=== PATIENT | female | born 1950 | race Caucasian/White ===

== ENCOUNTER 2018-01-06 03:38 | Inpatient (IN) | payer OTHER ==
[2018-01-06] VITALS (7 sets, daily range): BP systolic 131–165; BP diastolic 72–93
[~2018-01-06] VITALS: Ht 154.9 cm; Wt 37.6 kg
[~2018-01-06 03:38] MED LIST: APAP500 PO; BACTROBAN CREAM30 G1 TOP; BACTROBAN15 GM; CELEBREX50 MG PO; CHOLEST CARE500 MG; COLACE100 MG PO; CYMBALTA20 MG PO; CYMBALTA60 MG PO; DESYREL150 MG PO; DIAZEPAM 5 MG5 MG PO; DIAZEPAM1 EAC1; FLUOXETINE HCL20 M1 PO; HYDROCODON-ACE1 EAC5 PO; HYDROCODON-ACE1 EAC7 PO; IRON325 PO; LISINOPRIL2.5 MG PO; MAGOX 400400 MG PO; METHOTREXATE 22.5 MG PO; MINOCIN50 MG PO; NEURONTIN600 MG PO; NORCO 5-325 TA1 EACH PO; ONDANSETRON HCL4 M2 PO; PHENERGAN12.5 M2 RECTAL; PLAQUENIL200 MG PO; PREMARIN0.3 MG PO; REQUIP 0.25 M0.25 M1 PO; ZOFRAN4 MG PO
[2018-01-06 04:41] LABS: ABSOLUTE NEUTROPHILS 9.2 thou/uL (1.4-8.2); BASOPHILS 0.5 % (0.0-2.0); EOSINOPHILS 0.5 % (0.0-3.0); LYMPHOCYTES 13.9 % (24.0-44.0); MCH 28.7 pg (26.0-34.0); MCHC 32.7 g/dL (28.0-37.0); MONOCYTES 5.9 % (1.0-8.0); PLATELET COUNT 272 thou/uL (150-400); POLYS 79.2 % (36.0-66.0); RBC 3.75 mil/uL (4.20-5.00); RDW 15.3 % (10.5-14.5); WBC 11.6 thou/uL (4.0-11.0)
[2018-01-06 04:42] LABS: HEMOGLOBIN 10.8 gm/dL (12.0-15.0)
[2018-01-06 04:47] LABS: ANION GAP 9 mmol/L (7-16); BUN 36 mg/dL (7-18); CALCIUM 8.5 mg/dL (8.5-10.1); CHLORIDE 103 mmol/L (98-107); CO2 25 mmol/L (21-32); CREATININE 0.9 mg/dL (0.6-1.0); GLUCOSE 138 mg/dL (74-106); POTASSIUM 3.7 mmol/L (3.5-5.1); SODIUM 137 mmol/L (136-145)
[2018-01-06 04:53] LABS: ALBUMIN 3.1 g/dL (3.4-5.0); DIRECT BILIRUBIN < 0.1 mg/dL (<0.1-0.3); LIPASE 192 U/L (73-393); SGOT 21 U/L (15-37); SGPT 17 U/L (30-65); TOTAL BILIRUBIN 0.3 mg/dL (<0.1-1.0)
[2018-01-06 12:03] LABS: HEMATOCRIT 28.9 % (37.0-47.0); HEMOGLOBIN 9.6 gm/dL (12.0-15.0)
[2018-01-06 18:50] LABS: HEMOGLOBIN 9.5 gm/dL (12.0-15.0)
[2018-01-07 00:20] LABS: HEMATOCRIT 24.2 % (37.0-47.0)
[2018-01-07 04:05] VITALS: BP 135/84
[2018-01-07 05:21] LABS: HEMATOCRIT 23.1 % (37.0-47.0); HEMOGLOBIN 7.6 gm/dL (12.0-15.0)
[2018-01-07 06:42] LABS: RBC 2.67 mil/uL (4.20-5.00); WBC 7.1 thou/uL (4.0-11.0)
[2018-01-07 06:43] LABS: MCH 28.5 pg (26.0-34.0); MCHC 32.3 % (28.0-37.0); MCV 88.2 fL (80.0-100.0)
[2018-01-07 06:54] LABS: ALBUMIN 2.6 g/dL (3.4-5.0); CREATININE 0.5 mg/dL (0.6-1.0); TOTAL BILIRUBIN 0.2 mg/dL (<0.1-1.0)
[2018-01-07 07:47] VITALS: BP 154/109
[2018-01-07 12:10] VITALS: BP 155/92
[2018-01-07 14:37] LABS: % SATURATION 8 % (20-39); IRON 24 ug/dL (50-170); TIBC 299 ug/dL (250-450)
[2018-01-07 15:21] LABS: HEMATOCRIT 21.7 % (37.0-47.0); HEMOGLOBIN 7.2 gm/dL (12.0-15.0)
[2018-01-07 16:23] VITALS: BP 114/64
[2018-01-07 19:10] VITALS: BP 126/75
[2018-01-08 05:00] VITALS: BP 132/83
[2018-01-08 06:05] LABS: HEMOGLOBIN 6.9 gm/dL (12.0-15.0); WBC 5.7 thou/uL (4.0-11.0)
[2018-01-08 06:07] LABS: HEMATOCRIT 20.8 % (37.0-47.0); MCH 29.5 pg (26.0-34.0); MCHC 33.3 g/dL (28.0-37.0); MCV 88.5 fL (80.0-100.0); RBC 2.35 mil/uL (4.20-5.00); RDW 14.7 % (10.5-14.5)
[2018-01-08 07:56] VITALS: BP 120/75
[2018-01-08 09:53] VITALS: BP 140/91; BP 152/89
[2018-01-08 11:52] VITALS: BP 152/97
[2018-01-08 15:30] LABS: HEMATOCRIT 25.2 % (37.0-47.0); HEMOGLOBIN 8.6 gm/dL (12.0-15.0)
[2018-01-08 15:55] VITALS: BP 121/82
[2018-01-08 19:30] VITALS: BP 113/56
[2018-01-09 04:45] VITALS: BP 133/88
[2018-01-09 04:51] LABS: HEMATOCRIT 24.6 % (37.0-47.0); HEMOGLOBIN 8.2 gm/dL (12.0-15.0); MCH 29.6 pg (26.0-34.0); MCHC 33.3 g/dL (28.0-37.0); MCV 88.8 fL (80.0-100.0); RBC 2.77 mil/uL (4.20-5.00); WBC 5.9 thou/uL (4.0-11.0)
[2018-01-09 07:13] VITALS: BP 149/98
[2018-01-09 11:52] VITALS: BP 160/101
[2018-01-09] MEDS ORDERED: AMLODIPINE BESY10 MG PO (13:05)
[2018-01-09 15:50] VITALS: BP 158/99
[2018-01-09 16:48] VITALS: BP 158/99
== END 2018-01-09 18:52 | disposition home or self-care (01) | DRG 377 ==
LOC: ER 03:38 → EROBS 06:57 → 3W 06:57
PROVIDERS: Emergency Medicine; Hospitalist
PROC: 3E0G8GC Introduction of Other Therapeutic Substance into Upper GI, Via Natural or Artificial Opening Endoscopic (ICD-10-PCS; principal; 2018-01-06)
PROC: 0DB98ZX Excision of Duodenum, Via Natural or Artificial Opening Endoscopic, Diagnostic (ICD-10-PCS; principal; 2018-01-06)
PROC: 0DB68ZX Excision of Stomach, Via Natural or Artificial Opening Endoscopic, Diagnostic (ICD-10-PCS; principal; 2018-01-06)
PROC: 0DC68ZZ Extirpation of Matter from Stomach, Via Natural or Artificial Opening Endoscopic (ICD-10-PCS; principal; 2018-01-06)
DX: K25.4 Chronic or unspecified gastric ulcer with hemorrhage (principal); E43 Unspecified severe protein-calorie malnutrition; D62 Acute posthemorrhagic anemia; Z68.1 Body mass index [BMI] 19.9 or less, adult; K52.9 Noninfective gastroenteritis and colitis, unspecified; K44.9 Diaphragmatic hernia without obstruction or gangrene; M79.7 Fibromyalgia; M06.9 Rheumatoid arthritis, unspecified; M32.9 Systemic lupus erythematosus, unspecified; I72.8 Aneurysm of other specified arteries; I70.1 Atherosclerosis of renal artery; M48.061 Spinal stenosis, lumbar region without neurogenic claudication; F32.9 Major depressive disorder, single episode, unspecified; F41.9 Anxiety disorder, unspecified; F17.210 Nicotine dependence, cigarettes, uncomplicated; Z90.710 Acquired absence of both cervix and uterus; Z79.899 Other long term (current) drug therapy; Z82.49 Family history of ischemic heart disease and other diseases of the circulatory system
CPT/HCPCS: 10779; 27001; 62110; 62900; 70005

== ENCOUNTER 2018-01-15 18:22 | Inpatient (IN) | payer OTHER ==
[~2018-01-15] VITALS: Ht 157.5 cm; Wt 40.9 kg
--- NOTE | ~2018-01-15 | EKG ---
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 : 1950 Requested By: Severo Sandhu Order Number: [id number] MD: Neil Winkler Measurements Intervals [place] Rate: 93 P: 76 WY: 125 QRS: 34 QRSD: 85 T: 49 QT: 387 QTc: 482 Interpretive Statements Sinus rhythm Right atrial enlargement Compared to ECG 01/04/2018 21:01:27 Atrial abnormality now present Electronically Signed On 01-17-2018 7:56:17 CDT by Neil Winkler [email or web address] <ELECTRONICALLY SIGNED> By: Neil Winkler MD, [facility] 01/17/18 0756 36 36 Neil Winkler MD, [facility] /EPI
[~2018-01-15 18:22] MED LIST changes: +AMLODIPINE BESY10 MG PO
[2018-01-15 18:30] VITALS: BP 177/109
[2018-01-15 18:56] LABS: ABSOLUTE NEUTROPHILS 6.5 thou/uL (1.4-8.2); EOSINOPHILS 0.6 % (0.0-3.0); HEMOGLOBIN 11.9 gm/dL (12.0-15.0); LYMPHOCYTES 15.3 % (24.0-44.0); MCH 29.1 pg (26.0-34.0); MCHC 32.9 g/dL (28.0-37.0); MCV 88.3 fL (80.0-100.0); MONOCYTES 7.6 % (1.0-8.0); PLATELET COUNT 398 thou/uL (150-400); POLYS 75.5 % (36.0-66.0); RBC 4.08 mil/uL (4.20-5.00); RDW 15.2 % (10.5-14.5); WBC 8.5 thou/uL (4.0-11.0)
[2018-01-15 19:05] LABS: ANION GAP 14 mmol/L (7-16); BUN 9 mg/dL (7-18); CALCIUM 10.2 mg/dL (8.5-10.1); CHLORIDE 101 mmol/L (98-107); CO2 25 mmol/L (21-32); CREATININE 0.8 mg/dL (0.6-1.0); GLUCOSE 126 mg/dL (74-106); POTASSIUM 3.6 mmol/L (3.5-5.1); SODIUM 140 mmol/L (136-145)
[2018-01-15 19:13] LABS: TROPONIN-I < 0.04 ng/mL (<0.06)
[2018-01-15 19:15] LABS: APTT 23.4 Seconds (24.5-32.8); PROTIME 10.1 Seconds (9.3-11.4)
[2018-01-15 19:30] LABS: ALBUMIN 3.5 g/dL (3.4-5.0); DIRECT BILIRUBIN < 0.1 mg/dL (<0.1-0.3); LIPASE 100 U/L (73-393); SGOT 33 U/L (15-37); SGPT 26 U/L (30-65); TOTAL BILIRUBIN 0.2 mg/dL (<0.1-1.0); TOTAL PROTEIN 7.5 g/dL (6.4-8.2)
[2018-01-15 21:17] VITALS: BP 188/99
[2018-01-15 21:30] VITALS: BP 169/106
[2018-01-16] VITALS: BP 151/87
[2018-01-16 01:13] LABS: HEMATOCRIT 29.6 % (37.0-47.0)
[2018-01-16 04:43] VITALS: BP 128/79
[2018-01-16 06:54] LABS: HEMATOCRIT 30.4 % (37.0-47.0); HEMOGLOBIN 9.9 gm/dL (12.0-15.0)
[2018-01-16 08:00] VITALS: BP 155/92
[2018-01-16] MEDS ORDERED: CARAFATE 1 GM TA1 G1 PO (10:20)
[2018-01-16] MEDS ORDERED: PROTONIX40 M1 PO (10:21)
[2018-01-16 12:00] VITALS: BP 159/100
[2018-01-16 13:33] LABS: HEMOGLOBIN 8.9 gm/dL (12.0-15.0)
[2018-01-16 16:00] VITALS: BP 128/77
[2018-01-16 18:36] LABS: HEMATOCRIT 25.4 % (37.0-47.0); HEMOGLOBIN 8.4 gm/dL (12.0-15.0)
[2018-01-16 19:16] VITALS: BP 109/67
[2018-01-17 00:41] LABS: HEMATOCRIT 24.7 % (37.0-47.0)
[2018-01-17 04:55] VITALS: BP 145/93
[2018-01-17 09:17] VITALS: BP 147/83
[2018-01-17 12:00] VITALS: BP 132/90
[2018-01-17 17:32] VITALS: BP 130/89
[2018-01-17 19:45] VITALS: BP 120/81
[2018-01-18 07:16] LABS: ABSOLUTE NEUTROPHILS 2.7 thou/uL (1.4-8.2); BASOPHILS 1.1 % (0.0-2.0); EOSINOPHILS 2.9 % (0.0-3.0); HEMATOCRIT 26.4 % (37.0-47.0); HEMOGLOBIN 8.6 gm/dL (12.0-15.0); LYMPHOCYTES 37.9 % (24.0-44.0); MCH 29.2 pg (26.0-34.0); MCHC 32.7 g/dL (28.0-37.0); MCV 89.4 fL (80.0-100.0); MONOCYTES 7.9 % (1.0-8.0); POLYS 50.2 % (36.0-66.0); RBC 2.95 mil/uL (4.20-5.00); RDW 15.4 % (10.5-14.5); WBC 5.3 thou/uL (4.0-11.0)
[2018-01-18 07:20] LABS: PLATELET COUNT 288 thou/uL (150-400)
[2018-01-18 07:26] LABS: CREATININE 0.5 mg/dL (0.6-1.0)
[2018-01-18 07:30] VITALS: BP 131/90
[2018-01-18] MEDS ORDERED: CARAFATE 1 GM TA1 G1 PO (10:16)
[2018-01-18] MEDS ORDERED: PROTONIX40 M1 PO (10:16)
[2018-01-18 13:12] VITALS: BP 131/90
== END 2018-01-18 13:40 | disposition home or self-care (01) | DRG 377 ==
LOC: ER 18:22 → EROBS 20:09 → 3W 20:09 → SICU 01-17 18:18 → ENTRNSPT 01-18 13:28 → EDTRNSPTSTS 01-18 13:29 → SICU 01-18 13:40
PROVIDERS: Emergency Medicine; Hospitalist; Nurse Practitioner Acute Care; Specialist
DX: K92.2 Gastrointestinal hemorrhage, unspecified (principal); E43 Unspecified severe protein-calorie malnutrition; M79.7 Fibromyalgia; M06.9 Rheumatoid arthritis, unspecified; M32.9 Systemic lupus erythematosus, unspecified; I72.8 Aneurysm of other specified arteries; D64.9 Anemia, unspecified; F32.9 Major depressive disorder, single episode, unspecified; F41.9 Anxiety disorder, unspecified; F17.210 Nicotine dependence, cigarettes, uncomplicated; Z87.19 Personal history of other diseases of the digestive system; Z90.710 Acquired absence of both cervix and uterus; Z79.899 Other long term (current) drug therapy; Z82.49 Family history of ischemic heart disease and other diseases of the circulatory system
CPT/HCPCS: 10879; 15002

== ENCOUNTER 2020-09-23 16:16 | Inpatient (IN) | payer OTHER ==
[~2020-09-23] VITALS: Ht 157.5 cm; Wt 47.0 kg
[~2020-09-23 16:16] MED LIST changes: +AZITHROMYCIN 2250 MG PO; +CARAFATE 1 GM TA1 G1 PO; +LISINOPRIL-HCT1 EACH PO; +PROTONIX40 M1 PO
[2020-09-23 16:17] VITALS: BP 122/84
[2020-09-23 17:23] LABS: ABSOLUTE NEUTROPHILS 11.6 thou/uL (1.4-8.2); BASOPHILS 0.4 % (0.0-2.0); EOSINOPHILS 1.2 % (0.0-3.0); HEMATOCRIT 44.8 % (37.0-47.0); HEMOGLOBIN 14.3 gm/dL (12.0-15.0); LYMPHOCYTES 15.8 % (24.0-44.0); MCH 28.5 pg (26.0-34.0); MCHC 31.9 g/dL (28.0-37.0); MCV 89.4 fL (80.0-100.0); MONOCYTES 2.8 % (1.0-8.0); PLATELET COUNT 289 thou/uL (150-400); POLYS 79.8 % (36.0-66.0); RBC 5.02 mil/uL (4.20-5.00); RDW 18.1 % (10.5-14.5); WBC 14.6 thou/uL (4.0-11.0)
--- NOTE | 2020-09-23 17:25 | NUR ---
SISTER- JULISA GILLIS: [phone]. WOULD LIKE AN UPDATE WHEN RESULTS ARE BACK,
[2020-09-23 17:38] LABS: CALCIUM 9.8 mg/dL (8.5-10.1); CREATININE 0.9 mg/dL (0.6-1.0); POTASSIUM 3.2 mmol/L (3.5-5.1)
[2020-09-23 17:53] LABS: APTT 32.2 Seconds (24.5-32.8); INR 1.1
[2020-09-23 17:55] LABS: TOTAL BILIRUBIN 0.3 mg/dL (0.2-1.0); TOTAL PROTEIN 5.3 g/dL (6.4-8.2)
[2020-09-23 21:38] VITALS: BP 113/82
--- NOTE | 2020-09-23 21:56 | NUR ---
Called to give report but phone ringing for over 5 minutes with no answer
[2020-09-23 22:16] VITALS: BP 136/85
[2020-09-23 22:49] VITALS: BP 113/79
[2020-09-24 01:41] LABS: HEMATOCRIT 43.7 % (37.0-47.0); HEMOGLOBIN 13.9 gm/dL (12.0-15.0); MCH 28.5 pg (26.0-34.0); MCHC 31.7 g/dL (28.0-37.0); MCV 89.9 fL (80.0-100.0); RBC 4.86 mil/uL (4.20-5.00); RDW 18.3 % (10.5-14.5)
[2020-09-24 01:48] LABS: WBC 30.9 thou/uL (4.0-11.0)
[2020-09-24 02:05] LABS: CALCIUM 9.3 mg/dL (8.5-10.1); CREATININE 1.1 mg/dL (0.6-1.0); POTASSIUM 3.6 mmol/L (3.5-5.1)
[2020-09-24 04:45] VITALS: BP 147/94
--- NOTE | 2020-09-24 07:35 | EKG ---
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 : 1950 Requested By: Neto Groves Order Number: [id number] MD: Hayden Ballard Measurements Intervals [place] Rate: 93 P: 34 GA: 150 QRS: -34 QRSD: 96 T: 57 QT: 425 QTc: 529 Interpretive Statements Sinus rhythm Inferior infarct, old Prolonged QT interval Compared to ECG 01/15/2018 18:37:26 Myocardial infarct finding now present Prolonged QT interval now present Atrial abnormality no longer present Electronically Signed On 09-24-2020 7:35:45 FOOD AND BEVERAGE ATTENDANT by Hayden Ballard [email or web address] <ELECTRONICALLY SIGNED> By: Hayden Ballard MD, [facility] 09/24/20 0735 10 10 Hayden Ballard MD, FAC /EPI
[2020-09-24 07:45] VITALS: BP 141/79
[2020-09-24 12:00] VITALS: BP 141/83
--- NOTE | 2020-09-24 12:19 | NUR ---
Case opened to follow for dc planning needs. Ambulance Attendant visited with the pt at bedside. Pt admitted with pancreatitis/colitis from home. Therapy evals pending. Pt reports that she lives with her sister Funmi in a home in [place]. Both her son and Funmi's son lives there with them. She reports that she is indep with gait and adl's using her rwalker. Her sister helps with meal prep and they have a cleaning lady coming in weekly. Her pcp is Dr. Arnold Killian in [place]; she has been with him from many years. She is disabled with mutliple medical issues including lupus,fibromyaligia, celiac disease, RA, etc... She smokes 1-2 packs a day. She requested her face sheet be updated with her sisters info vs her ex Andrez who has health issues himself. Cm role introduced. Pt denies any dc needs at this time. Will follow along for possible HH at dc. Pt was oriented x4 but a little drowsy this am.
[2020-09-24 15:30] VITALS: BP 161/87
--- NOTE | 2020-09-24 18:17 | NUR ---
ASSESSMENT CHARTED - MEDS PER MAR - PT NPO THIS AM - BIANCA DIET AND FLUIDS SINCE LUNCH WITH NO CO'S OF NASUEA. UP TO THE BSC - PT WITH DIARRHEA MIXED WITH URINE - PARK IN COLOUR. PT WITH CO'S OF PAIN IN L QUAD GIVEN HYDROCODONE WITH MOD- GOOD RELIEF. IV FLUIDS CONTINUE ORDERED. SEEN BY GI DOCTOR TODAY. PT APPEARS TO BE RESTING COMFORTABLY AT THE PRESENT TIME.
[2020-09-24 20:45] VITALS: BP 168/94
[2020-09-25] VITALS: BP 163/92
[2020-09-25 04:45] VITALS: BP 174/95
[2020-09-25 04:59] LABS: CALCIUM 8.6 mg/dL (8.5-10.1); CREATININE 0.7 mg/dL (0.6-1.0); POTASSIUM 3.4 mmol/L (3.5-5.1)
[2020-09-25 05:20] LABS: HEMATOCRIT 33.7 % (37.0-47.0); MCH 28.4 pg (26.0-34.0); MCHC 31.9 g/dL (28.0-37.0); MCV 89.1 fL (80.0-100.0); RBC 3.78 mil/uL (4.20-5.00); RDW 18.4 % (10.5-14.5)
[2020-09-25 05:26] LABS: HEMOGLOBIN 10.7 gm/dL (12.0-15.0); WBC 15.3 thou/uL (4.0-11.0)
[2020-09-25 07:45] VITALS: BP 164/92
--- NOTE | 2020-09-25 10:39 | 2DMMODE ---
[facility] [place] [address] 2 D/M-MODE ECHOCARDIOGRAM Name: SUNNI CERDA LIZZETTE Room #: 216-P ADM IN M.R.#: [id number] Admission: 09/23/20 Attend Phys: Dontae Manning MD Discharge: Date of : 50 Report #: [id number] THIS REPORT FOR: cc: José Wray Steve T. DO Lammoglia, Francisco J. MD ~ APPROVED REPORT Study performed: 09/25/2020 09:32:24 EXAM: Comprehensive 2D, Doppler, and color-flow Echocardiogram Patient Location: Bedside Room #: 216 Status: routine BSA: 1.37 HR: 100 bpm BP: 164/92 mmHg Rhythm: NSR/Irregular Other Information Study Quality: Good Indications Bacteremia, rule out vegetation. Hx: Cardiomyopathy (30-35% 2017). 2D Dimensions RVDd: 27.91 mm IVSd: 7.68 (7-11mm) LVOT Diam: 20.33 (18-24mm) LVDd: 43.67 mm PWd: 8.47 (7-11mm) Ascending Ao: 34.28 (22-36mm) LVDs: 30.46 (25-40mm) Aortic Root: 36.23 mm Volumes Left Atrial Volume (Systole) Single Plane 4CH: 28.82 mL Single Plane 2CH: 31.45 mL LA ESV Index: 26.00 mL/m2 Aortic Valve AoV Peak Yair.: 1.45 m/s AO Peak Gr.: 8.35 mmHg LVOT Max P.36 mmHg LVOT Max V: 1.04 m/s MACEY Vmax: 2.34 cm2 [facility] [address] [place] [address] 2 D/M-MODE ECHOCARDIOGRAM Name: SUNNI CERDA LIZZETTE Room #: 216-P [facility] IN [facility].#: [id number] Admission: 09/23/20 Attend Phys: Huyen Phipps Discharge: Date of : 50 Report #: [id number] Mitral Valve E/A Ratio: 0.7 MV Decel. Time: 187.22 ms MV E Max Yair.: 0.75 m/s MV A Yair.: 1.01 m/s MV PHT: 54.30 ms IVRT: 78.43 ms Pulmonary Valve PV Peak Yair.: 0.82 m/s PV Peak Gr.: 2.68 mmHg Pulmonary Vein P Vein S: 0.85 m/s P Vein D: 0.39 m/s P Vein S/D Ratio: 2.18 Tricuspid Valve TR Peak Yair.: 2.50 m/s RAP Estimate: 5.00 mmHg TR Peak Gr.: 25.10 mmHg PA Pressure: 30.00 mmHg Left Ventricle The left ventricle is normal size. There is normal LV segmental wall motion. No significant hypertrophy Left ventricular systolic function is normal. LVEF is 55%. Mild diastolic dysfunction is present (impaired relaxation pattern). Right Ventricle The right ventricle is normal size. The right ventricular systolic function is normal. Atria The left atrium size is normal. The right atrium size is normal. Aortic Valve Aortic valve leaflets are mildly thickened and calcified. Trace aortic regurgitation. There is no aortic valvular stenosis. Mitral Valve The mitral valve is normal in structure. Trace to mild mitral regurgitation. Tricuspid Valve The tricuspid valve is normal in structure. Trace to mild tricuspid regurgitation. Estimated PAP is 30mmHg. [facility] [address] [place] [address] 2 D/M-MODE ECHOCARDIOGRAM Name: SUNNI CERDA [facility] Room #: 216-P ADM IN M.R.#: [id number] Admission: 09/23/20 Attend Phys: Huyen Phipps Discharge: Date of : 50 Report #: [id number] Pulmonic Valve The pulmonary valve is normal in structure. There is no pulmonic valvular regurgitation. Great Vessels Aortic root is borderline dilated. The ascending aorta is normal in size. IVC is normal in size and collapses >50% with inspiration. Pericardium There is no pericardial effusion. <Conclusion> The left ventricle is normal size. Left ventricular systolic function is normal. There is normal LV segmental wall motion. LVEF is 55%. Aortic valve leaflets are mildly thickened and calcified. Trace aortic regurgitation. There is no aortic valvular stenosis. The mitral valve is normal in structure. Trace to mild mitral regurgitation. The tricuspid valve is normal in structure. Trace to mild tricuspid regurgitation. Estimated PAP is 30mmHg. The pulmonary valve is normal in structure. There is no pericardial effusion. <ELECTRONICALLY SIGNED> By: Yosef Hall MD 09/25/20 1039 1039 1039 Yosef Hall MD /INF
[2020-09-25 11:01] VITALS: BP 162/94
[2020-09-25 15:19] VITALS: BP 164/87
[2020-09-25 19:22] VITALS: BP 142/89
--- NOTE | 2020-09-25 20:09 | NUR ---
ASSESSMENT CHARTED - MEDS PER NOV - PT GIVEN PAIN MEDS DOCUMENTED WITH MOD EFFECT ON PAIN. BIANCA DIET AND FLUIDS. NO CO'S OF NAUSEA. PT UP TO THE BEDSIDE COMMODE . IV FLUIDS CONTINUE ORDERED. SEEN BY INFECTIOUS DISEASE TODAY ORDERED. PT SLEEPING ALOT OF THE SHIFT. NO CO'S AT THE PRESENT TIME. APPEARS TO BE RESTING COMFORTABLY.
--- NOTE | 2020-09-26 01:37 | HC ---
[facility] [place] [address] CONSULTATION Name: SUNNI CERDA Room #: 216-P ADM IN M.R.#: [id number] Admission: 09/23/20 Attend Phys: Dontae Manning MD Discharge: Date of : 50 Report #: [id number] THIS REPORT FOR: cc: José Wray Steve T. DO Geha, Daniel J. MD ~ DATE OF SERVICE: 09/25/2020 INFECTIOUS DISEASE CONSULTATION REASON FOR CONSULTATION: I was asked to evaluate concerning bacteremia. HISTORY OF PRESENT ILLNESS: This is a 69-year-old with underlying history of rheumatoid arthritis, systemic lupus erythematosus, underlying vascular disease, who presents on 09/23/2020 with a syncopal episode while on the toilet. For about a week before this, she had noticed malaise, anorexia, 10-pound weight loss with progressive abdominal pain. She has had some loose stools. While straining on the toilet, the patient had a syncopal episode. When she presented to the Emergency Room, she is having abdominal cramping pain along with nausea, vomiting and loose stools. CT scan imaging showed evidence of underlying vascular disease to the intestinal tract along with elevated lipase. Lactate was elevated at 5. This is all normalized. She has had leukocytosis of 14,000, went up to 30,000 and now is at 15,000. No fever, chills or sweats. Her abdominal pain has persisted. She has been able to eat. Reports loose stools. No blood in her stool. No history of pancreatitis. She has had a gastric ulcer in the past. 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 REVIEW OF SYSTEMS: A 14-point review of system was negative other than what has been described above. No previous history of cardiomyopathy or dysrhythmias. ALLERGIES: None known. MEDICATIONS: As noted on her MAR, which were reviewed. She was on minocycline and had been on azithromycin. PAST MEDICAL HISTORY: Restless leg syndrome, gastroesophageal reflux, anemia, fibromyalgia, hypertension, tobacco use, bilateral carpal tunnel repair, hysterectomy, small-bowel obstruction, systemic lupus erythematosus, rheumatoid arthritis, gastric ulcer, celiac disease, right renal artery stenosis, anxiety, depression, cataract surgery, celiac artery aneurysm, spinal stenosis. FAMILY HISTORY: Negative for tuberculosis. SOCIAL HISTORY: She is a smoker of cigarettes. No significant alcohol intake. [facility] [address] [place] [address] CONSULTATION Name: SUNNI CERDA [facility] Room #: 216-P [facility] IN ..#: [id number] Admission: 09/23/20 Attend Phys: Dontae Manning MD Discharge: Date of : 50 Report #: [id number] PHYSICAL EXAMINATION: VITAL SIGNS: She is afebrile and hemodynamically stable. GENERAL: She is alert and cooperative and pleasant. She was thin. SKIN: With multiple ecchymosis to her extremities. No palpable adenopathy. EYES: Without scleral icterus. MOUTH: Without mucositis. NECK: Supple. LUNGS: Clear. HEART: Regular, without murmur, gallop or rub. ABDOMEN: Soft, was tender mostly in the epigastric region. No appreciable mass or hepatosplenomegaly. No CVA tenderness. GENITORECTAL: Not performed. EXTREMITIES: Without clubbing, cyanosis or edema. NEUROLOGIC: Cranial nerves intact. Strength in upper and lower extremities within normal limits. Mood without anxiety or depression. LABORATORY STUDIES: Reviewed. CT scan of the abdomen and pelvis reviewed. MICROBIOLOGY: Reviewed. IMPRESSION: A 69-year-old with underlying history of rheumatoid arthritis and abdominal vascular disease, presents with abdominal pain, weight loss, loose stools and a syncopal episode. On presentation, she had a leukocytosis along with lactic acidosis. I would be concerned about underlying ischemia. However, there is no bowel wall thickening on CAT scan. She has mild pancreatitis changes with lipase of 800, which has now normalized. She has lactic acidosis, which has improved. Syncope, likely related to vasovagal syndrome. Gram-positive bacteremia with Staphylococcus epidermidis and Staphylococcus hominis identified would be most consistent with contamination since it is one of two blood cultures and multiple organisms identified. RECOMMENDATIONS: We will check stool for C. difficile by PCR and stool culture. Continue current antibiotic coverage, pending final culture results. If pain persists, would repeat upper endoscopy to assess for ischemia. Serial laboratory studies and follow leukocytosis. Await GI service recommendations. <ELECTRONICALLY SIGNED> By: Kaden Lagunas MD 09/26/20 0137 [id number] 2330 Kaden Lagunas MD /nt
[2020-09-26 04:26] VITALS: BP 157/97
--- NOTE | 2020-09-26 04:30 | NUR ---
ASSESSED PT. C/O PAIN IV INTACT WITH FLUIDS INFUSING. HYDROCODONE GIVEN FOR PAIN. PT UP TO BSC WITH SBA. NO FURTHER SIGNS OF DISCOMFORT WILL CONT TO MONITOR.
[2020-09-26 04:56] LABS: HEMATOCRIT 31.1 % (37.0-47.0); HEMOGLOBIN 10.2 gm/dL (12.0-15.0); MCH 29.1 pg (26.0-34.0); MCHC 32.7 g/dL (28.0-37.0); MCV 89.1 fL (80.0-100.0); RBC 3.49 mil/uL (4.20-5.00); RDW 17.6 % (10.5-14.5); WBC 10.3 thou/uL (4.0-11.0)
[2020-09-26 05:05] LABS: CALCIUM 8.7 mg/dL (8.5-10.1); CREATININE 0.6 mg/dL (0.6-1.0); MAGNESIUM 1.5 mg/dL (1.8-2.4)
[2020-09-26 05:14] LABS: POTASSIUM 2.9 mmol/L (3.5-5.1)
[2020-09-26 07:41] VITALS: BP 166/104
[2020-09-26 11:06] VITALS: BP 139/89
[2020-09-26 13:31] LABS: POTASSIUM 3.7 mmol/L (3.5-5.1)
[2020-09-26 14:33] LABS: CALCIUM 8.7 mg/dL (8.5-10.1); CREATININE 0.6 mg/dL (0.6-1.0); MAGNESIUM 2.7 mg/dL (1.8-2.4); PHOSPHORUS 1.2 mg/dL (2.5-4.9)
[2020-09-26 15:25] VITALS: BP 170/102
--- NOTE | 2020-09-26 15:37 | NUR ---
PT RESTING IN BED FOR MAJORITY OF SHIFT. WORKED WITH PT TODAY. MAGNESIUM/POTASSIUM REPLACED PER [facility] PROTOCAL. STOOL SAMPLE SENT TO LAB. MULTIPLE SMALL BOWEL MOVEMENTS TODAY. PT AFEBRILE, ADEQUATE UOP, VERY LITTLE APPETIITE. PT HAS BEEN UPDATED AND EDUCATED ON PT CONDITION AND POC. PT PROGRESSING TOWARDS POC.
[2020-09-26 20:17] VITALS: BP 119/77
[2020-09-27 03:05] VITALS: BP 139/87
--- NOTE | 2020-09-27 04:05 | NUR ---
Assumed pt care at 1900. Pt is alert and oriented. No sign of distress noted in pt. Fall precaution in place. Assessment completed and documented. Verbalizes abdominal pain. Pain med administered to pt. Scheduled meds administered to pt. Tolerated PO intake. No acute events overnight. Continue to monitor pt. No further needs at this time.
[2020-09-27 05:55] LABS: HEMATOCRIT 29.3 % (37.0-47.0); HEMOGLOBIN 9.5 gm/dL (12.0-15.0); MCH 29.2 pg (26.0-34.0); MCHC 32.5 g/dL (28.0-37.0); RBC 3.26 mil/uL (4.20-5.00)
[2020-09-27 06:09] LABS: CALCIUM 8.7 mg/dL (8.5-10.1); CREATININE 0.5 mg/dL (0.6-1.0); MAGNESIUM 1.7 mg/dL (1.8-2.4); POTASSIUM 4.4 mmol/L (3.5-5.1)
[2020-09-27 08:12] VITALS: BP 146/95
--- NOTE | 2020-09-27 12:30 | NUR ---
pT. AMBULATED TO RESTROOM FOR MULTIPLE BLOWEL MOVEMENTS THIS AM. PENDING C-DIFF RESULTS TO BE POSTED. AFEBRILE. MAGNESIUM REPLACED THIS AM PER PROTOCOL. NORMAL URINE OUTPUT THIS AM. HYDROCODONE GIVEN AT NOON TODAY FOR ABDOMEN PAIN PRIOR.
[2020-09-27 13:00] VITALS: BP 160/90
--- NOTE | 2020-09-27 17:19 | NUR ---
Visited with pt at bedside. She did well with therapy today and too high level for 5N acute rehab. She is hoping to go directly home at dc and is feeling better, hoping her cdiff is negative. She has good support at home and does not feel she needs HH f/u. Will reassess early next week for possible hh needs at dc.
--- NOTE | 2020-09-27 17:33 | NUR ---
PAGED DR. MARSH'S OFFICE TO LET THEM KNOW THE CDIFF SAMPLE WAS A. COLLECTED. B. NEVER RUN ACCORDING TO MICROBIOLOGY STAFF PER JELANI IN INFECTIOUS DISEASE OFFICE? WILL TRY TO OBTAIN ANOTHER SAMPLE SOON SHE IS ABLE TO PROVIDE ONE.
--- NOTE | 2020-09-27 18:59 | NUR ---
STOOL SPECIMEN SENT FOR CDIFF PROCESSING HAS BEEN HAVING CHRONIC DIARRHEA PAST 24 HOURS, NOT ON LAXATIVES. MAXIMO ORDERED NEW TEST FOR SUCH POST MY CALL TO HIM EARLIER IN THE DAY. LOW FEVER CONTINUES.
[2020-09-27 20:12] VITALS: BP 149/88
[2020-09-28 03:49] LABS: HEMATOCRIT 29.6 % (37.0-47.0); HEMOGLOBIN 9.8 gm/dL (12.0-15.0); MCH 29.4 pg (26.0-34.0); MCHC 33.1 g/dL (28.0-37.0); MCV 88.8 fL (80.0-100.0); RBC 3.33 mil/uL (4.20-5.00); RDW 18.1 % (10.5-14.5); WBC 8.3 thou/uL (4.0-11.0)
[2020-09-28 03:59] LABS: CALCIUM 8.5 mg/dL (8.5-10.1); CREATININE 0.5 mg/dL (0.6-1.0); MAGNESIUM 1.7 mg/dL (1.8-2.4); POTASSIUM 3.6 mmol/L (3.5-5.1)
[2020-09-28 04:31] VITALS: BP 15/85; BP 150/85
--- NOTE | 2020-09-28 05:08 | NUR ---
SLEPT PART OF SHIFT. ST WITH ACTIVITY TO BATHROOM 120'S AT TIMES. PAIN MEDICATION FOR CHRONIC ABDOMANAL PAIN NEEDED. WORKING ON GOALS AND PLAN OF CARE FOR NOC. PROGRESSING SLOWLY TOWARDS DISCHARGE GOALS. CONTINUE TO ASSES CLOSELY.
[2020-09-28 09:01] VITALS: BP 143/91
[2020-09-28 11:50] VITALS: BP 156/90
--- NOTE | 2020-09-28 11:56 | NUR ---
FAXED REFERRAL TO [facility]. GAYLA/AAMIR WILL REVIEW AND GET BACK TO LESTER/AGRICULTURAL EQUIPMENT TEST ENGINEER IF HOME HEALTH NEEDED AT DISCHARGE. [facility] P [phone]; FAX [phone]; GAYLA/AAMIR [phone]
--- NOTE | 2020-09-28 15:47 | NUR ---
PT RESTING IN BED, STANDBY ASSIST TO BATHROOM. ONLY HAD 1 BOUT OF DIARRHEA TODAY, DR COLON IN WITH PT, PT ON ABX, PLAN IS TO DC WITH WHEN PT IS READY.
[2020-09-28 15:59] VITALS: BP 123/67
[2020-09-28 19:56] VITALS: BP 151/84
[2020-09-29 02:43] LABS: HEMATOCRIT 25.8 % (37.0-47.0); HEMOGLOBIN 8.5 gm/dL (12.0-15.0); MCH 28.9 pg (26.0-34.0); MCHC 32.8 g/dL (28.0-37.0); MCV 88.1 fL (80.0-100.0); RBC 2.93 mil/uL (4.20-5.00); RDW 18.1 % (10.5-14.5); WBC 6.9 thou/uL (4.0-11.0)
[2020-09-29 02:58] LABS: CALCIUM 7.7 mg/dL (8.5-10.1); CREATININE 0.6 mg/dL (0.6-1.0); MAGNESIUM 1.4 mg/dL (1.8-2.4); POTASSIUM 3.1 mmol/L (3.5-5.1)
[2020-09-29 03:56] VITALS: BP 149/84
--- NOTE | 2020-09-29 04:24 | NUR ---
SLEPT PART OF SHIFT. UP TO BATHROOM WITH STEADY GATE. PROGRESSING SLOWLY TOWARDS DISCHARGE GOALS. AWAITING STOOL CDIFF RESULTS. WORKING ON GOALS AND PLAN OF CARE FOR NOC. PAIN MEDICATION NEEDED. HAD SMALL BROWN SOFT UNFORMED STOOL THIS AM. CONTINUE TO ASSES CLOSELY.
[2020-09-29 08:05] VITALS: BP 170/98
[2020-09-29 08:30] VITALS: BP 170/98
[2020-09-29 13:06] VITALS: BP 165/93
--- NOTE | 2020-09-29 13:28 | NUR ---
PT CARE ASSUMED AT 0700. ASSESSMENTS CHARTED. MEDICATIONS CHARTED. RAC IV. TOILET. UP AD ELIF. SINUS RHYTHM. ISOLATION FOR C. DIFF. FIBROMYALGIA. REQUESTS PAIN MEDICATION REGULARLY. PT TRANSFERRED TO [facility].
--- NOTE | 2020-09-29 19:18 | NUR ---
Pt arrived to floor from [facility] in stable condition.Assessment completed.vss. Medicated pt with oral pain med as ordered for abdominal pain rated 10/10 with relief.Piv replaced by iv team due to leaking.Report off to noc rn.
[2020-09-29 20:04] VITALS: BP 148/98
--- NOTE | 2020-09-30 03:05 | NUR ---
PT CARE ASSUMED WITH PT IN BED WATCHING TV.PT IS A/O X4.PT IS AP AD ELIF TO BATHROOM.PT IS FROM HOME AND LIVES WITH TERESA ND SISTER.IV ACCESS ON NEVAEH SL.PT IS ON CDIFF CONTACT PRECAUTIN AWAITING RESULT.PT C/O ABDOMINAL PAIN AND HAS HYDROCODONE FOR PAIN MANAGEMENT.PT IS ON RA.PT HAD ONE BM DURING SHIFT.WILL CONTINUE TO MONITOR
[2020-09-30 08:20] VITALS: BP 128/87
--- NOTE | 2020-09-30 09:05 | NUR ---
SPOKE WITH GAYLA IN INTAKE AT [facility] THEY CAN ACCEPT AT DISCHARGE IF HH NEEDED.
--- NOTE | 2020-09-30 09:28 | NUR ---
PT AWAKE AT THIS TIME. PT STATED SHE HAS SOME PAIN TO BACK AND JOINTS OF 4-5 ALL THE TIME. PT STATED SHE HAS LUPUS AND FIBROMYALGIA. PT HAS BRUISING TO BOTH ARMS. PT STATED THAT THE BRUISES TO FORARMS ARE PERMANENT FROM THE LUPUS. PT THINKS HER MOM HAD FIBROMYALGIA AND CALLED IT FIBROSIS. PT SAID THE PAIN IS SHARP AND STABBING AND SHE NEEDS MEDS EVERY 6 HOURS FOR PAIN. PT LUNGS HAVE CRACKLES TO BASES, NO SOA NOTED. PT UP WITH SELF. PT STATED SHE ATE MORE THIS AM THAN SHE DID THIS WHOLE STAY.
--- NOTE | 2020-09-30 12:29 | NUR ---
ADM HYDROCODNE 10MG PO FOR PAIN TO LOWER BACK OF 9 ON 1-10 SCALE. PT WANTING TO KNOW IF SHE CAN GO HOME TODAY. WAITING ON DR. MAXIMO KHAN FOR ANTIBIOTICS.
--- NOTE | 2020-09-30 19:23 | NUR ---
STARTED SUHAS AT THIS TIME. TALKED TO PT TODAY ABOUT HE PROCEDURE AND ANSWERED QUESTIONS BEST TO THIS FOAMITE MIXER ABILITY. SHE WANTED TO KNOW IF BOTH TEST WOULD BE DONE TOGETHER.
--- NOTE | 2020-09-30 19:24 | NUR ---
ADM HYDROCODNE PO FOR PAIN TO LOWER BACK OF 8 ON 1-10 SCALE.
[2020-09-30 19:55] VITALS: BP 155/100
--- NOTE | 2020-10-01 02:59 | NUR ---
PT CARE ASSUMED WITH PT INE BED.PT IS UP AD ELIF TO BATHROOM.PT IS A/O X4.PT C/O PAIN AND PAIN MANAGED WITH HYDROCONE.PT HAD BOWEL PREP FOR PROCEDURE TODAY AND ALSO NPO FROM MIDNIGHT.WILL CONTINUE TO MONITOR PER POC
[2020-10-01 04:46] VITALS: BP 139/89
[2020-10-01 05:35] LABS: HEMATOCRIT 25.8 % (37.0-47.0); HEMOGLOBIN 8.5 gm/dL (12.0-15.0); MCH 29.1 pg (26.0-34.0); MCHC 32.8 g/dL (28.0-37.0); MCV 88.6 fL (80.0-100.0); RBC 2.91 mil/uL (4.20-5.00); RDW 17.4 % (10.5-14.5); WBC 8.2 thou/uL (4.0-11.0)
[2020-10-01 06:12] LABS: ALBUMIN 2.2 g/dL (3.4-5.0); CALCIUM 8.6 mg/dL (8.5-10.1); CREATININE 0.5 mg/dL (0.6-1.0); TOTAL BILIRUBIN 0.2 mg/dL (0.2-1.0); TOTAL PROTEIN 4.9 g/dL (6.4-8.2)
[2020-10-01 06:22] LABS: POTASSIUM 2.8 mmol/L (3.5-5.1)
[2020-10-01 07:29] VITALS: BP 147/97
--- NOTE | 2020-10-01 10:33 | NUR ---
ASSUMED PT CARE THIS AM. PT RECEIVING REPLACEMENT POTASSIUM, TOLERATING WELL. IV PATENT. CALLS APPROPRIATELY WHEN NEEDED. NPO FOR EGD AND COLONOSCOPY TODAY. AMBULATORY TO THE BEDSIDE COMMODE. REPORTS GENERALIZED PAIN, BUT WITHELD PAIN MEDS FOR PROCEDURES.
[2020-10-01 12:43] VITALS: BP 151/95
--- NOTE | 2020-10-01 15:13 | NUR ---
PT HAD EGD AND COLONOSCOPY DONE THIS DAY. PT STILL ON IV ZOSYN. CARE TEAM HAVE INDICATED TAT PT ISN'T YET READY FOR DC. IT IS ANTICPATED THAT PT WILL BE SAFE TO RETURN HOME WITH [facility] ONCE MEDICALLY STABLE.
[2020-10-01 16:05] VITALS: BP 151/95
[2020-10-01 17:11] VITALS: BP 146/95
[2020-10-01 19:36] VITALS: BP 143/74
--- NOTE | 2020-10-02 04:03 | NUR ---
Pt. rested quietly at intervals during the night when checked on during frequent rounds. Po pain meds given for c/o generalized pain (see emar) with some relief. She is up ad werner to the bathroom and steady on her feet. No c/o nausea.
[2020-10-02 08:00] VITALS: BP 124/98
[2020-10-02 09:34] VITALS: BP 140/67
[2020-10-02 15:41] VITALS: BP 170/90
--- NOTE | 2020-10-02 15:53 | NUR ---
CARE TEAM INDICATED THAT PT IS MEDICALLY STABLE TO DC HOME THIS DAY. PT'S FAMILY TO PROVIDED TRANSPORT HOME. [facility] IS ABLE TO ACCEPT PT FOR SERVICES UPON. DC ORDERS FAXED. NO OTHER CM INTERVENTION INDICATED. CASE CLOSED.
[2020-10-02 17:06] LABS: CALCIUM 8.8 mg/dL (8.5-10.1); CREATININE 0.8 mg/dL (0.6-1.0); MAGNESIUM 1.7 mg/dL (1.8-2.4); POTASSIUM 3.1 mmol/L (3.5-5.1)
[2020-10-02 19:17] VITALS: BP 152/82
--- NOTE | 2020-10-02 19:55 | NUR ---
Assumed pt care this am, BP elevated medications given as per emar. Pain is managed with medications, parital relief is noted. K is low, medications given as per emar. Pt is up ad werner and steady on her gair. POC followed iwth no signs or vebalizations of distres noted.
--- NOTE | 2020-10-03 03:35 | NUR ---
ASSUMED CARE OF PT AT 1900. PT IS A/O X4 AND IS UP AD ELIF TO THE BR. C/O PAIN. PRN PAIN MEDICATION GIVEN DIRECTED. PT WANTS TO UPDATE PHYSCIAN IN HER DOSAGE FOR HER LISINOPRIL AND HAS ASKED FOR THIS INFORMATION TO BE WRITTEN IN THE NURSES NOTE. SHE TAKES 10M BID. WILL ALSO ENDORSE THIS INFORMATION TO ON COMING DAY SHIFT NURSE. CALLED EXECUTIVE CHAIRMAN OF THE BOARD TO REQUEST A REDRAW ORDER TO CHECK PT K AFTER REPLACEMENT AT 1800 YESTERDAY EVENING. ORDERS GIVEN TO REDRAW WITH AM RUN. AT THIS TIME PT IS LYING IN HER BED AND APPEARS TO BE SLEEPING. PT IS PROGRESSING TOWARDS PLAN OF CARE GOALS. WILL CONTINUE TO MONITOR.
[2020-10-03 06:01] LABS: CALCIUM 8.9 mg/dL (8.5-10.1); CREATININE 0.6 mg/dL (0.6-1.0); POTASSIUM 3.7 mmol/L (3.5-5.1)
[2020-10-03 07:10] VITALS: BP 126/71
[2020-10-03] MEDS ORDERED: PRINIVIL10 MG PO (08:56)
[2020-10-03 11:32] VITALS: BP 151/95
--- NOTE | 2020-10-03 14:06 | NUR ---
ASSUMED CARE OF PATIENT AT SHIFT CHANGE. ASSESSMENT CHARTED. MEDICATIONS ADMINISTERTED PER EMAR. VSS. PATIENT IS A&OX4, MAKES NEEDS KNOWN AND IS INDEPENDENT W AMBULATION AND ADL'S. PATIENT CONTINUES TO VOICE GENERALIZED PAIN SECONDARY TO FIBROMYALGIA; PRN ANALGESIC ADMINSTERED. PATIENT ANXIOUS TO DISCHARGE THIS DAY 10/03/20. DISCHARGE ORDERS ARE IN AND FINALIZED. PT EDUCATED ON HH AND DISCHARGE INSTRUCTIONS. BELONGINGS W PATIENT. LEAVING W SON. PATIENT VOICED NO FURTHER NEEDS.
[2020-10-03 14:12] VITALS: BP 151/95
--- NOTE | 2020-10-03 14:31 | NUR ---
PT HADN'T DISCHARGED HOME YESTERDAY. CARE TEAM INDICATED THAT PT IS MEDICALLY STABLE TO DC HOME THIS DAY. PT'S FAMILY TO PROVIDED TRANSPORT HOME. [facility] IS ABLE TO ACCEPT PT FOR SERVICES UPON. DC ORDERS FAXED. NO OTHER CM INTERVENTION INDICATED. CASE CLOSED.
[2020-10-03 14:36] VITALS: BP 151/95
--- NOTE | 2020-10-03 16:06 | PATH ---
[facility] [place] [address] PATHOLOGY RPT PROCEDURE Name: TAYLOR CERDA LIZZETTE Room #: 449-I DIS IN M.R.#: [id number] Admission: 09/23/20 Date of : 50 Discharge: 10/03/20 Report #: [id number] Path Case #: [id number] [facility] Accession Number: [id number] . 01 Material submitted: . PART A: gastrointestinal site - BX ANTRUM R/O H.PYLORI PART B: colon - BX ISCHEMIC COLITIS . 01 Clinician provided ICD-10: A41.9 K85.90 . 01 Clinical history: . HX GASTRIC ULCER HIATAL HERNIA GASTRITIS ISCHEMIC COLITIS . 02 Diagnosis: A. Gastric mucosa, antrum R/O H. pylori, endoscopic biopsy: - Negative for intestinal metaplasia or atrophy. - Negative for Helicobacter pylori (properly controlled immunohistochemical stain performed). . B. Large intestine, ischemic colitis, endoscopic biopsy: - Sample entirely comprised of fibrinopurulent material/debris, see comment. - No intact epithelium/mucosa present for evaluation. (IUV:kandi; 10/03/2020) QMS 10/03/2020 1206 Local . 02 Comment: Examination of the "ischemic colitis" tissue shows fibrinopurulent material and focal granulation tissue. Intact surface epithelium, lamina propria or mucosa is not identified. While ulcers as well as fibrinopurulent material are a feature of ischemic colitis, lack of intact mucosa precludes a definitive interpretation or diagnosis. Similar ulceration or changes may be seen with pseudomembranous colitis as well. Please correlate clinically. (IUV:kandi; 10/03/2020) . 02 Electronically signed: . Lolly Solo MD, Pathologist NPI- [id number] . 01 Gross description: . A. The specimen is received in formalin, labeled "Taylor Cerda, [place] [address] PATHOLOGY RPT PROCEDURE Name: TAYLOR CERDA LIZZETTE Room #: 449-I DIS IN M.R.#: [id number] Admission: 09/23/20 Date of : 50 Discharge: 10/03/20 Report #: [id number] Path Case #: [id number] antrum, R/O H. pylori". Received is a segment of pale nj soft tissue measuring 0.5 cm in maximum dimensions. The specimen is submitted entirely in cassette A1. . B. The specimen is received in formalin, labeled "Taylor Cerda, biopsy ischemic colitis". Received are two segments of pale nj soft tissue measuring 0.3 cm each in maximum dimensions. The specimen is submitted entirely in cassette B1. (CAA; 10/02/2020) QAC/QAC 10/02/2020 1059 Local . 02 Pathologist provided ICD-10: E87.2, R55, R10.9, Z87.19 . 02 CPT . 358653, 430023, P10573 Specimen Comment: A courtesy copy of this report has been sent to [phone] Specimen Comment: Report sent to Performed at: [address], [place] [id number] MD Luis Majano MD Phone: [phone] Performed at: [address] [id number] MD Lolly Solo MD Phone: [phone]
--- NOTE | 2020-10-03 16:37 | NUR ---
FAXED DC ORDERS/SUMMARY TO [facility] SPOKE WITH GAYLA IN INTAKE SHE RECEIVED ORDERS AND WILL VISITS WITH PT.
== END 2020-10-03 15:53 | disposition home health service (06) | DRG 871 ==
LOC: ER 16:16 → 2N 19:35 → EROBS 19:35 → 2N 22:18 → 4W 09-29 12:43
PROVIDERS: Emergency Medicine; Hospitalist; Internal Medicine; Nurse Practitioner; Nurse Practitioner Family; ADMIT Hospitalist; ATTEND Hospitalist
PROC: 0DBL8ZX Excision of Transverse Colon, Via Natural or Artificial Opening Endoscopic, Diagnostic (ICD-10-PCS; principal; 2020-10-01)
PROC: 0DB78ZX Excision of Stomach, Pylorus, Via Natural or Artificial Opening Endoscopic, Diagnostic (ICD-10-PCS; 2020-10-01)
DX: A41.1 Sepsis due to other specified staphylococcus (principal); K85.90 Acute pancreatitis without necrosis or infection, unspecified; A09 Infectious gastroenteritis and colitis, unspecified; K55.9 Vascular disorder of intestine, unspecified; I77.4 Celiac artery compression syndrome; E46 Unspecified protein-calorie malnutrition; K56.699 Other intestinal obstruction unspecified as to partial versus complete obstruction; D62 Acute posthemorrhagic anemia; Z68.1 Body mass index [BMI] 19.9 or less, adult; Z20.822 Contact with and (suspected) exposure to COVID-19; F32.9 Major depressive disorder, single episode, unspecified; M06.9 Rheumatoid arthritis, unspecified; F41.9 Anxiety disorder, unspecified; R63.4 Abnormal weight loss; K21.9 Gastro-esophageal reflux disease without esophagitis; F17.210 Nicotine dependence, cigarettes, uncomplicated; M81.0 Age-related osteoporosis without current pathological fracture; M79.7 Fibromyalgia; K22.2 Esophageal obstruction; E87.6 Hypokalemia; E83.42 Hypomagnesemia; F11.90 Opioid use, unspecified, uncomplicated; K44.9 Diaphragmatic hernia without obstruction or gangrene; I70.1 Atherosclerosis of renal artery; G89.4 Chronic pain syndrome; K29.60 Other gastritis without bleeding; K64.8 Other hemorrhoids; Z98.49 Cataract extraction status, unspecified eye; Z90.710 Acquired absence of both cervix and uterus; Z82.49 Family history of ischemic heart disease and other diseases of the circulatory system; Z79.899 Other long term (current) drug therapy
CPT/HCPCS: 10047; 10081; 62110; 62900; 70005

== ENCOUNTER 2020-10-19 18:23 | Inpatient (IN) | payer OTHER ==
[~2020-10-19] VITALS: Ht 157.5 cm; Wt 38.6 kg
[~2020-10-19 18:23] MED LIST changes: +PRINIVIL10 MG PO
[2020-10-19 18:24] VITALS: BP 137/95
[2020-10-19 19:02] LABS: ABSOLUTE NEUTROPHILS 5.6 thou/uL (1.4-8.2); BASOPHILS 0.5 % (0.0-2.0); EOSINOPHILS 0.6 % (0.0-3.0); HEMATOCRIT 39.1 % (37.0-47.0); HEMOGLOBIN 12.7 gm/dL (12.0-15.0); LYMPHOCYTES 19.2 % (24.0-44.0); MCH 29.5 pg (26.0-34.0); MCHC 32.4 g/dL (28.0-37.0); MCV 90.9 fL (80.0-100.0); MONOCYTES 8.8 % (1.0-8.0); PLATELET COUNT 328 thou/uL (150-400); POLYS 70.9 % (36.0-66.0); RDW 16.9 % (10.5-14.5)
[2020-10-19 19:36] LABS: ALBUMIN 3.2 g/dL (3.4-5.0); CALCIUM 9.4 mg/dL (8.5-10.1); CREATININE 0.9 mg/dL (0.6-1.0); TOTAL BILIRUBIN 0.2 mg/dL (0.2-1.0); TOTAL PROTEIN 6.8 g/dL (6.4-8.2)
[2020-10-19 19:39] LABS: POTASSIUM 2.8 mmol/L (3.5-5.1)
[2020-10-19 20:12] LABS: URINE BILIRUBIN NEGATIVE (Negative); URINE BLOOD 2+ (Negative); URINE CLARITY CLEAR; URINE COLOR YELLOW; URINE GLUCOSE-RANDOM* NEGATIVE (Negative); URINE KETONES 1+ (Negative); URINE LEUKOCYTES-REFLEX NEGATIVE (Negative); URINE NITRITE-REFLEX NEGATIVE (Negative); URINE PROTEIN (DIPSTICK) NEGATIVE (Negative); URINE SPECIFIC GRAVITY >= 1.030 (1.005-1.035); URINE UROBILINOGEN 0.2 E.U./dl (0.2-1.0)
[2020-10-19 20:26] VITALS: BP 125/74
[2020-10-19 20:26] LABS: HYALINE CASTS 0-3 Few /LPF (None Seen); SQUAMOUS >10 Many /LPF (0-3)
[2020-10-19 20:27] LABS: BACTERIA-REFLEX None Seen /HPF (None Seen); CRYSTALS None Seen /LPF (None Seen); URINE RBC 3-10 Few /HPF (0-2); URINE WBC-REFLEX 0-5 Rare /HPF (0-5); YEAST-REFLEX Present (None Seen)
[2020-10-19 22:11] VITALS: BP 124/79
--- NOTE | 2020-10-19 22:11 | NUR ---
ATTEMPTED TO CALL REPORT TO CCU. NURSE UNAVAILABLE AND WILL CALL BACK.
[2020-10-19] MEDS ORDERED: COLACE100 MG PO (22:15)
[2020-10-19 22:45] VITALS: BP 135/81
[2020-10-20] VITALS: BP 123/83
[2020-10-20] MEDS ORDERED: FLUOXETINE HCL20 M1 PO (02:34)
[2020-10-20 03:58] VITALS: BP 127/75
[2020-10-20 04:29] LABS: CALCIUM 8.3 mg/dL (8.5-10.1); CREATININE 0.7 mg/dL (0.6-1.0)
[2020-10-20 07:40] VITALS: BP 142/81
--- NOTE | 2020-10-20 07:59 | NUR ---
PT ARRIVED TO THE UNIT AROUND 2330. OREINTATED TO THE UNIT. CURRENTLY REPLACING POTASSIUM. A&OX4. SR/ST ON THE MONITOR. RA. COMPLAINTS OF GENRELIZED PAIN; PRN PAIN MEDS GIVEN. UPX1; USING BEDSIDE COMMODE. FALL PRECAUTIONS IN PLACE. ASSESSMENTS CHARTED. CONTINING TO ASSESS ACCORDING TO POC.
[2020-10-20 11:40] VITALS: BP 130/79
[2020-10-20 16:00] VITALS: BP 140/89
--- NOTE | 2020-10-20 18:43 | NUR ---
10/20/20 PATIENT RESTING COMFORTABLY IN BED. APPETITE INCREASING, PATIENT ATE 75% OF LUNCH AND DINNER. PRN PAIN MEDS GIVEN WITH GOOD PAIN CONTROL. PATIENT UPDATED FAMILY HERSELF. VITAL SIGNS STABLE, WILL CONTINUE TO MONITOR.
[2020-10-20 20:19] VITALS: BP 137/90
[2020-10-21 04:16] LABS: HEMATOCRIT 28.4 % (37.0-47.0); MCH 29.1 pg (26.0-34.0); MCHC 31.8 g/dL (28.0-37.0); MCV 91.5 fL (80.0-100.0); RBC 3.11 mil/uL (4.20-5.00); RDW 16.8 % (10.5-14.5); WBC 7.7 thou/uL (4.0-11.0)
[2020-10-21 04:52] LABS: CALCIUM 8.1 mg/dL (8.5-10.1); CREATININE 0.6 mg/dL (0.6-1.0); POTASSIUM 3.8 mmol/L (3.5-5.1)
[2020-10-21 05:41] VITALS: BP 156/89
--- NOTE | 2020-10-21 06:00 | NUR ---
AWAKE AND ALERT VSS LUNGS CLEAR ON ROOM AIR. PAIN MED X 2 FOR GENERALIZED DISCOMFORT. GETS UP TO BEDSDIE COMMODE WITH LITTLE ASSIST. A VERY DELIGHTFUL FUN LOVING LITTLE LADY. ANXIOUS TO GO HOME TODAY/. WILL COMNT TO MONITOR
[2020-10-21 08:05] VITALS: BP 157/97
[2020-10-21 11:35] VITALS: BP 157/107
[2020-10-21 13:56] VITALS: BP 157/107
--- NOTE | 2020-10-21 14:06 | NUR ---
ASSUMED CARE AT CHANGE OF SHIFT. ALERTX4,FROM HOME, DENIES PAIN, DENIES SOB, TREATED CONSTIPATION WITH MAG CITRATE.NO BM NOTED AT THIS TIME. MINIMAL ASSIST TO COMMODE. DECLINES HH AT THIS TIME. SISTER AND SONS LIVE WITH PT. REVIEWED DC PAPER WORK. IV AND TELE. REMOVED.
--- NOTE | 2020-10-21 14:33 | NUR ---
PATIENT RESIDES AT HOME WITH HER SISTER, HER SON,AND NEPHEW. HER SON LOST JOB AND HE IS AVAIL TO ASSIST. PATIENT USES A WALKER AT ALL TIMES IN HOME AND COMMUNITY. PATIENT WITH ORDERS TO DISCHARGE [facility]. NOY PREV DISCHARGED HOME WITH [facility]. [facility] REPORTS PATIENT DECLINED WHEN THEY CALLED TO ARRANGE VISIT. PATIENT REPORTS SHE DOES NOT WANT HOME HEALTH CARE AT DISCHARGE. SHE REPORTS SHE IS IMMUNOCOMPROMISED AND FEARFUL OF [place] COVID. SHE DOES NOT WANT ANYONE IN HOME. SHE REPORTS ONLY BEEN AROUND SAME FAMILY FOR A YEAR. UPDATED PHYS HH DECLINED.
[2020-10-21 15:55] VITALS: BP 144/86
[2020-10-21 20:00] VITALS: BP 131/79
[2020-10-22 04:45] VITALS: BP 147/98
--- NOTE | 2020-10-22 06:15 | NUR ---
PATIENT CONTINUES THIS SHIFT WITH SEVERAL BM'S. PATIENTS CARES WERE ASSUMED AT SHIFT CHANGE. PATIENT WAS ASSESSED AND MEDS WERE PASSED. PATIENT HAS REQUESTED PAIN MED TWICE THIS SHIFT. ONCE AT HS AND EARLY THIS MORNING. ROUNDING WAS DONE. THE BED IS IN A LOW AND LOCKED POSITION
[2020-10-22 07:25] VITALS: BP 160/77
[2020-10-22 11:50] VITALS: BP 142/71
[2020-10-22 15:25] VITALS: BP 163/80
[2020-10-22 16:30] VITALS: BP 157/107
== END 2020-10-22 17:38 | disposition home or self-care (01) | DRG 391 ==
LOC: ER 18:23 → 2N 20:16 → EROBS 20:16 → 2N 22:27
PROVIDERS: Emergency Medicine; Hospitalist; Nurse Practitioner Family; ADMIT Internal Medicine; ATTEND Internal Medicine
DX: K29.70 Gastritis, unspecified, without bleeding (principal); E43 Unspecified severe protein-calorie malnutrition; Z68.1 Body mass index [BMI] 19.9 or less, adult; N17.9 Acute kidney failure, unspecified; K59.00 Constipation, unspecified; E87.6 Hypokalemia; G25.81 Restless legs syndrome; K21.9 Gastro-esophageal reflux disease without esophagitis; M06.9 Rheumatoid arthritis, unspecified; F32.9 Major depressive disorder, single episode, unspecified; R63.0 Anorexia; F41.9 Anxiety disorder, unspecified; Z90.710 Acquired absence of both cervix and uterus; Z98.49 Cataract extraction status, unspecified eye; Z79.899 Other long term (current) drug therapy; M81.0 Age-related osteoporosis without current pathological fracture; M79.7 Fibromyalgia; D64.9 Anemia, unspecified
CPT/HCPCS: 10081

== ENCOUNTER 2020-11-02 15:33 | Inpatient (IN) | payer OTHER ==
[~2020-11-02] VITALS: Ht 157.5 cm; Wt 45.8 kg
[2020-11-02 15:44] VITALS: BP 144/81
[2020-11-02 16:41] LABS: HEMOGLOBIN 12.8 gm/dL (12.0-15.0); MCH 29.6 pg (26.0-34.0); MCHC 32.1 g/dL (28.0-37.0); MCV 92.2 fL (80.0-100.0); RBC 4.34 mil/uL (4.20-5.00); RDW 15.8 % (10.5-14.5); WBC 21.1 thou/uL (4.0-11.0)
[2020-11-02 16:49] LABS: CALCIUM 8.1 mg/dL (8.5-10.1); CREATININE 0.9 mg/dL (0.6-1.0)
[2020-11-02 16:55] LABS: ALBUMIN 2.3 g/dL (3.4-5.0); TOTAL BILIRUBIN 0.4 mg/dL (0.2-1.0); TOTAL PROTEIN 5.6 g/dL (6.4-8.2)
[2020-11-02 17:54] LABS: URINE BLOOD TRACE (Negative); URINE CLARITY CLEAR; URINE COLOR YELLOW; URINE GLUCOSE-RANDOM* NEGATIVE (Negative); URINE KETONES NEGATIVE (Negative); URINE LEUKOCYTES-REFLEX NEGATIVE (Negative); URINE NITRITE-REFLEX NEGATIVE (Negative); URINE PROTEIN (DIPSTICK) 2+ (Negative); URINE SPECIFIC GRAVITY 1.025 (1.005-1.035)
[2020-11-02 18:05] LABS: SQUAMOUS 4-10 Moderate /LPF (0-3)
[2020-11-02 18:06] LABS: MUCUS 0-3 Light strn/LPF (None Seen)
[2020-11-02 18:07] LABS: CASTS None Seen /LPF (None Seen); CRYSTALS None Seen /LPF (None Seen); URINE RBC 0-2 Rare /HPF (0-2); URINE WBC-REFLEX 0-5 Rare /HPF (0-5)
[2020-11-02 18:10] LABS: ICTOTEST (BILI CONFIRMATORY) Negative (Negative)
[2020-11-02 18:14] LABS: URINE BILIRUBIN NEGATIVE (Negative)
[2020-11-03 04:40] LABS: CALCIUM 8.6 mg/dL (8.5-10.1); CREATININE 1.1 mg/dL (0.6-1.0)
[2020-11-03 04:53] LABS: HEMATOCRIT 41.2 % (37.0-47.0); HEMOGLOBIN 12.8 gm/dL (12.0-15.0); MCH 29.4 pg (26.0-34.0); MCHC 31.2 g/dL (28.0-37.0); MCV 94.2 fL (80.0-100.0); RBC 4.37 mil/uL (4.20-5.00); RDW 16.1 % (10.5-14.5); WBC 27.3 thou/uL (4.0-11.0)
[2020-11-03 06:59] VITALS: BP 154/100
--- NOTE | 2020-11-03 08:22 | NUR ---
TALKED WITH DR RODRIGUEZ WHO WAS NOTIFIED ABOUT THE WBC INCREASING ON THE MOST RECENT LABS. HE IS FINE WITH IT UNTIL THE NEXT BLOOD DRAW TOMORROW. THE NEED FOR CONTINUED CARVALHO WAS DISCUSSED AND DR RODRIGUEZ AGREED IT SHOULD BE REMOVED. DR RODRIGUEZ ALSO STATED THE PT COULD NOW HAVE A CLEAR LIQUID DIET.
[2020-11-03 10:03] VITALS: BP 160/80
--- NOTE | 2020-11-03 19:19 | NUR ---
CONTACTED THE HOSPITALIST NIMISHA GILLIS AND INFORMED HER THAT THE PT BLOOD CULTURE FROM YESTERED CAME BACK - GRAM POS COCCI - AEROBIC BOTTLE.
[2020-11-03 19:37] VITALS: BP 127/82
[2020-11-03 20:51] VITALS: BP 128/87
--- NOTE | 2020-11-04 01:28 | NUR ---
ADMISSION ASSESSMENT COMPLETED. PT TRANSFERRED TO THE UNIT AT AROUND 2000HRS. FROM THE ED. ALERT AND ORIENTED WITH MILD FORGETFULNESS. FEVER OF 100.1. DENIES COUGH OR SOA. TOOK HS MEDS WITH NO DIFFICULTY. IVF AND IV ABTS STARTED.PT APEARS PALE AND VERY WEAK. FALL EDUCATION PROVIDED, CALL LIGHT WITHIN REACH.WILL CONTINUE WITH POC TILL EOS.
[2020-11-04 04:48] VITALS: BP 133/76
[2020-11-04 05:51] LABS: HEMATOCRIT 32.3 % (37.0-47.0); MCH 29.8 pg (26.0-34.0); MCHC 31.8 g/dL (28.0-37.0); MCV 93.7 fL (80.0-100.0); RBC 3.45 mil/uL (4.20-5.00); RDW 16.2 % (10.5-14.5)
[2020-11-04 05:52] LABS: HEMOGLOBIN 10.3 gm/dL (12.0-15.0); WBC 11.6 thou/uL (4.0-11.0)
[2020-11-04 06:12] LABS: CALCIUM 8.1 mg/dL (8.5-10.1); CREATININE 0.8 mg/dL (0.6-1.0); POTASSIUM 3.1 mmol/L (3.5-5.1)
[2020-11-04 07:45] VITALS: BP 108/75
--- NOTE | 2020-11-04 09:26 | NUR ---
Note Given: Y Facility List Provided:Y Shamar Judd: None selected at this time
--- NOTE | 2020-11-04 11:11 | NUR ---
ASSUMED PT CARE THIS AM. PT VSS, A&OX4. PT DOES NOT CALL OUT WHEN NEEDED, FREQUENT CHECKS BEING COMPLETED. PATIENT APPEARS VERY PALE AND HAS LOW ENERGY WITH WEAKNESS. PATIENT HAS MULTIPLE BOUTS OF DIARRHEA TODAY, STOOL SOFTENER HELD. BOTH IV'S ARE PATENT, FLUIDS INFUSING. ON ROOM AIR. PHYSICIAN NOTIFIED ABOUT PATIENT APPEARING PALE AND LOW ENERGY. RESPONDS TO ALL QUESTIONS ASKED APPROPRIATELY, BUT SLOW TO RESPOND. TAKES MEDS WELL WITHOUT COMPLAINT. FALL PRECAUTIONS IN PLACE.
--- NOTE | 2020-11-04 11:38 | NUR ---
Note Given: Y Facility List Provided:Y Shamar Judd: None Selected
--- NOTE | 2020-11-04 13:54 | NUR ---
ASSESSMENT: CM REVIEWED CHART. PT WAS ADMITTED DUE TO SEPSIS FROM RECURRENT COLITIS. PT REPORTS THAT SHE LIVES IN A HOUSE WITH HER SISTER JULISA IN A HOUSE. BOTH PATIENTS SON AND LINDAS SON LIVE THERE WELL. PT REPORTS THAT SHE USES A WALKER FOR AMBULATION. PTS SISTER HELPS WITH MEALS AND PT REPORTS HER SON HELPS LOOK AFTER HER IF SHE NEEDS ANYTHING. PTS PCP IS DR. MARY JO ALMAZAN IN [place]. PT REPORTS SHE WAS REFERRED FOR HOME HEALTH BEFORE ([facility]-WHICH SHE LATER DECLINED) BUT STATES DUE TO THE PANDEMIC SHE DOES NOT WANT ANY ADDITIONAL PEOPLE IN HER HOME AT THIS TIME. PT HAS A GI CONSULT AND CURRENTLY ON IV ANBX. CM WILL CONTINUE TO FOLLOW TO ASSIST NEEDED.
[2020-11-04] MEDS ORDERED: POTASSIUM20 PO (14:34)
[2020-11-04] MEDS ORDERED: DULOXETINE HCL60 MG PO (14:35)
[2020-11-04 15:53] LABS: CALCIUM 7.7 mg/dL (8.5-10.1); CREATININE 0.6 mg/dL (0.6-1.0)
[2020-11-04 15:58] LABS: POTASSIUM 2.7 mmol/L (3.5-5.1)
[2020-11-04 17:02] VITALS: BP 172/100
[2020-11-04 21:32] VITALS: BP 150/102
[2020-11-05 00:32] VITALS: BP 169/105
--- NOTE | 2020-11-05 01:45 | NUR ---
ASSUMED PT CARE AT AROUND 1915 HRS. PT C/O OF LOST PURSE-BP ELEVATED, WITH FEVER WHICH RESOLVED WITH TYLENOL.PT ASLO TACHYCARDIC BUT BY MIDNOC WAS DOWN TO THE 90S.SHE REQUIRES ASSIST X 1 TO BSC. VOIDING OKAY.STILL HAVING LOOSE STOOLS. C/O ALL OVER PAIN-CHRONIC IN NATURE-PRN NORCO GIVEN.CONTINUES ON DEXTROSE THRO RFA.WILL CONTINUE WITH POC TILL EOS.
[2020-11-05 05:41] LABS: HEMATOCRIT 30.2 % (37.0-47.0); HEMOGLOBIN 9.6 gm/dL (12.0-15.0); MCH 29.5 pg (26.0-34.0); MCHC 31.9 g/dL (28.0-37.0); MCV 92.6 fL (80.0-100.0); RBC 3.27 mil/uL (4.20-5.00); RDW 15.8 % (10.5-14.5); WBC 9.8 thou/uL (4.0-11.0)
[2020-11-05 06:18] LABS: CALCIUM 7.9 mg/dL (8.5-10.1); CREATININE 0.6 mg/dL (0.6-1.0); POTASSIUM 3.1 mmol/L (3.5-5.1)
[2020-11-05 07:15] VITALS: BP 152/96
--- NOTE | 2020-11-05 14:47 | NUR ---
on-going assessment: CM REVIEWED CHART AND SPOKE WITH PATIENT. PHYSICAL THERAPY EVAL IS PENDING. OT RECOMMENDING POST ACUTE CARE. CM MET WITH PATIENT TO DISCUSS. SHE STATES SHE WILL NOT GO TO SNF DUE TO THE PANDEMIC AND THINKS SHE DOES JUST FINE AT HOME. CM ATTEMPTED TO DISCUSS ACUTE REHAB BUT SHE DOES NOT WANT TO DO THIS AND STATES SHE WANTS TO RETURN HOME AT DISCHARGE. PT IS ALSO NOT RECEPTIVE TO HOME HEALTH AT THIS TIME. PATIENT IS CURRENTLY BEING RULED OUT FOR CDIFF. CM WILL CONTINUE TO FOLLOW TO ASSIST NEEDED.
--- NOTE | 2020-11-05 15:03 | NUR ---
ASSUMED CARE OF PT AT 0700 THIS MORNING. PT ADMITTED FOR SEPSIS AND COLITIS. PT WAS AWAKE AND ORIENTED TO TIME AND PERSON AND WAS SLIGHTLY CONFUSED TO LOCATION AND CURRENT EVENTS. PT BECAME MORE ALERT AFTER WAKING UP MORE. PT HAS HAD 9+ BM WITH WATERY LOOSE STOOLS. PT C/O GENERAL ALL AROUND PAIN AT 6 ON 1/10 SCALE. CONTINUING CARE OF PT.
[2020-11-05 17:38] VITALS: BP 133/89
--- NOTE | 2020-11-05 19:45 | NUR ---
Received patient care from this afternoon. Pt is alert and oriented x 4 but forgetful. Pt is up & assist x 1 and had a blackish loose watery stool. Blood glucose is well controlled. Gave pt potassium chloride 20 meq/100 ml on R wrist running @ 10ml/hr instead of 50ml/hr because pt does not tolerate it well and c/o burning. Inform Dr. Manning about pt concern and about possible changing to PO via myairmail. Change rate of potassium chloride this pm and running @ 15ml/hr. Endorse night nurse about pt concern. Bed is on the lowest position, side rails up x 3 and call light within reach.
[2020-11-05 20:27] VITALS: BP 134/90
[2020-11-06] VITALS (8 sets, daily range): BP systolic 119–165; BP diastolic 61–100
--- NOTE | 2020-11-06 02:42 | NUR ---
ASSUMED CARE OF PT AT SHIFT CHANGE. PT IS AOX3-4 AND LETS NEEDS BE KNOWN. FALL PRECAUTION IN PLACE. ASSESSMENT CHARTED. PT HAD SEVERAL LOOSE BM THIS SHIFT. PT REPORTED PAIN AND WAS TREATED WITH PRN PAIN MEDS. ISOLATION CONTINUED PENDING C-DIFF RESULTS. PT WAS ABLE TO GET COMFORTABLE AND SLEEP PART OF THE SHIFT. VSS AND NO S/S OF ACUTE DISTRESS. WILL CONTINUE TO [facility].
[2020-11-06 05:06] LABS: CALCIUM 7.5 mg/dL (8.5-10.1); CREATININE 0.5 mg/dL (0.6-1.0); POTASSIUM 3.7 mmol/L (3.5-5.1)
[2020-11-06 05:07] LABS: HEMATOCRIT 29.1 % (37.0-47.0); HEMOGLOBIN 9.3 gm/dL (12.0-15.0); MCH 29.5 pg (26.0-34.0); MCV 92.2 fL (80.0-100.0); RBC 3.16 mil/uL (4.20-5.00); RDW 15.7 % (10.5-14.5); WBC 11.1 thou/uL (4.0-11.0)
--- NOTE | 2020-11-06 09:33 | NUR ---
PT TRANSFERED TO UNIT YESTERDAY. PT ADMITTED RELATED TO SEPSIS, INTRACTABLE ABDOMINAL PAIN/COLITIS. CM COWORKER HAD ASSESSED PT AND PT HAS REFUSED POST ACUTE CARE STAY AND HOME HEALTH SERVICES AT THIS TIME. PT IS TO HAVE ARTERIOGRAM DONE THIS DAY AND PT IS TO TRANSFER TO 214 POST PROCEDURE.
--- NOTE | 2020-11-06 18:22 | NUR ---
Assumed pt care this am received NPO for mesenteric arteriogram w/ intervention as needed. Pt is very frail and covers in bruises in upper extremities, skin is very dry. Came back from IR late afternoon, Site (R groin) dressing is clear dry and intact, 2 stents placed (right renal artery, SOWMYA), VS stable pt remained to be tachy. Chronic pain is managed with medications, Used the bed mixon, liquid grayish black stool is noted. Son at the bed side. POC followed, with no signs or verbalizations of distress.
--- NOTE | 2020-11-07 03:18 | NUR ---
ASSUMED CARE OF PT AT SHIFT CHANGE. PT AOX3-4 AND LETS NEEDS BE KNOWN. FALL PRECAUTION IN PLACE. ASSESSMENT CHARTED. PT REPORTED GENERALIZED PAIN AND WAS TREATED WITH PRN PAIN MEDS. PT IS POST OP DAY 0 AND SURGICAL SITE IS C/D/I. PT WAS ALBERTO TO GET COMFORTABLE AND SLEEP PART OF THE SHIFT. VSS AND NO S/S OF ACUTE DISTRESS. WILL CONTINUE TO MONITOR.
[2020-11-07 08:00] VITALS: BP 144/84
[2020-11-07 10:27] LABS: HEMATOCRIT 28.7 % (37.0-47.0); HEMOGLOBIN 9.3 gm/dL (12.0-15.0); MCH 29.6 pg (26.0-34.0); MCHC 32.3 g/dL (28.0-37.0); MCV 91.4 fL (80.0-100.0); RBC 3.14 mil/uL (4.20-5.00); RDW 15.8 % (10.5-14.5); WBC 8.8 thou/uL (4.0-11.0)
[2020-11-07 10:35] LABS: CALCIUM 7.8 mg/dL (8.5-10.1); CREATININE 0.6 mg/dL (0.6-1.0); POTASSIUM 3.4 mmol/L (3.5-5.1)
[2020-11-07] MEDS ORDERED: CLOPIDOGREL75 MG PO (10:50)
[2020-11-07] MEDS ORDERED: BAYER CHEWABLE81 MG PO (10:50)
[2020-11-07] MEDS ORDERED: IRON325 PO (10:50)
--- NOTE | 2020-11-07 14:44 | NUR ---
CARE TEAM INDICATED THAT PT IS LIKELY MEDICALLY STABL TO DC HOME THIS DAY. PT IS REFUSING SKILLED POST ACUTE CARE STAY AND HH SERVICES UPON DC. CM CALLED AND SPOKE WITH PT'S SISTER SHE IS AWARE AND AGREEABLE WITH PT'S REFUSALS. 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 PT'S DIET BEING ADVANCED TOLERATED. PT INDICATED SHE WOULD HAVE TRANSPORT HOME THIS DAY. ANTICIPATE THAT PT WILL DISCAHRGE HOME TO SELF CARE LATER THIS DAY. NO OTHER CM INTERENTION INDICATED. CASE CLOSED.
--- NOTE | 2020-11-07 15:16 | NUR ---
ASSUMED CARE OF PATIENT AT CHANGE OF SHIFT. ASSESSMENT CHARTED. MEDICATIONS ADMINISTERED PER NOV. VSS. PATIENT IS A&OX3-4 AND ABLE TO MAKE NEEDS KNOWN. R GROIN SITE REMAINS C/D/I; WARM TO TOUCH AND NON-TENDER. PATIENT VOICING PAIN 02/13; GENRALIZED RELATED TO RA AND LUPUS PER PATIENT. PRN PAIN MEDICATION ADMINISTERED NEEDED. PT/OT WORKED W PATIENT AND PATIENT TOLERATED WELL. PATIENT REMAINS MEDICALLY STABLE ENOUGH TO D/C HOME THIS DAY W PATIENT SISTER. CM F/U W FAMILY AND PATIENT TO DETERMINE FURTHER PLANNING. PATIENT NAPPING FOR MOST SHIFT, TOLERATING DIET & ACTIVITY WELL. VOICED NO FURTHER NEEDS. WILL CONTINUE TO MONITOR
[2020-11-07 16:23] VITALS: BP 144/84
== END 2020-11-07 17:42 | disposition home or self-care (01) | DRG 853 ==
LOC: ER 15:33 → 4S 18:54 → EROBS 18:54 → 4S 11-03 20:20 → 4W 11-05 15:49
PROVIDERS: Family Medicine; Internal Medicine; Nurse Practitioner; Nurse Practitioner Family; ADMIT Hospitalist; ATTEND Hospitalist
PROC: B41D1ZZ Fluoroscopy of Aorta and Bilateral Lower Extremity Arteries using Low Osmolar Contrast (ICD-10-PCS; principal; 2020-11-06)
PROC: 047A34Z Dilation of Left Renal Artery with Drug-eluting Intraluminal Device, Percutaneous Approach (ICD-10-PCS; principal; 2020-11-06)
PROC: 047 Lower Arteries, Dilation (ICD-10-PCS; principal; 2020-11-06)
PROC: B4151ZZ Fluoroscopy of Inferior Mesenteric Artery using Low Osmolar Contrast (ICD-10-PCS; principal; 2020-11-06)
PROC: B4141ZZ Fluoroscopy of Superior Mesenteric Artery using Low Osmolar Contrast (ICD-10-PCS; principal; 2020-11-06)
PROC: B4181ZZ Fluoroscopy of Bilateral Renal Arteries using Low Osmolar Contrast (ICD-10-PCS; principal; 2020-11-06)
DX: A41.9 Sepsis, unspecified organism (principal); K85.90 Acute pancreatitis without necrosis or infection, unspecified; E43 Unspecified severe protein-calorie malnutrition; K55.059 Acute (reversible) ischemia of intestine, part and extent unspecified; K56.609 Unspecified intestinal obstruction, unspecified as to partial versus complete obstruction; E87.1 Hypo-osmolality and hyponatremia; K55.9 Vascular disorder of intestine, unspecified; I77.4 Celiac artery compression syndrome; F11.20 Opioid dependence, uncomplicated; Z68.1 Body mass index [BMI] 19.9 or less, adult; K21.9 Gastro-esophageal reflux disease without esophagitis; I10 Essential (primary) hypertension; M06.9 Rheumatoid arthritis, unspecified; F32.9 Major depressive disorder, single episode, unspecified; F41.9 Anxiety disorder, unspecified; G89.4 Chronic pain syndrome; F17.210 Nicotine dependence, cigarettes, uncomplicated; M79.7 Fibromyalgia; M48.00 Spinal stenosis, site unspecified; D64.9 Anemia, unspecified; K29.70 Gastritis, unspecified, without bleeding; R63.4 Abnormal weight loss; T40.2X5A Adverse effect of other opioids, initial encounter; R53.81 Other malaise; E87.6 Hypokalemia; K59.03 Drug induced constipation; T40.695A Adverse effect of other narcotics, initial encounter; I70.1 Atherosclerosis of renal artery; Z79.82 Long term (current) use of aspirin; Z82.49 Family history of ischemic heart disease and other diseases of the circulatory system; Y92.89 Other specified places as the place of occurrence of the external cause; Z87.11 Personal history of peptic ulcer disease; Z90.710 Acquired absence of both cervix and uterus; Z98.49 Cataract extraction status, unspecified eye; Z79.899 Other long term (current) drug therapy
CPT/HCPCS: 10040; 10195

== ENCOUNTER 2020-11-08 13:28 | Inpatient (IN) | payer OTHER ==
[~2020-11-08] VITALS: Ht 157.5 cm; Wt 42.2 kg
[~2020-11-08 13:28] MED LIST changes: +BAYER CHEWABLE81 MG PO; +CLOPIDOGREL75 MG PO; +DULOXETINE HCL60 MG PO; +POTASSIUM20 PO
[2020-11-08 13:31] VITALS: BP 143/86
[2020-11-08 14:14] LABS: MCH 29.1 pg (26.0-34.0); MCHC 32.3 g/dL (28.0-37.0); MCV 90.2 fL (80.0-100.0); RBC 3.1 mil/uL (4.20-5.00); RDW 15.9 % (10.5-14.5)
[2020-11-08 14:26] LABS: URINE BILIRUBIN NEGATIVE (Negative); URINE BLOOD 2+ (Negative); URINE CLARITY CLEAR; URINE COLOR YELLOW; URINE GLUCOSE-RANDOM* NEGATIVE (Negative); URINE KETONES NEGATIVE (Negative); URINE NITRITE-REFLEX NEGATIVE (Negative); URINE PROTEIN (DIPSTICK) NEGATIVE (Negative); URINE SPECIFIC GRAVITY <= 1.005 (1.005-1.035); URINE UROBILINOGEN 0.2 E.U./dl (0.2-1.0)
[2020-11-08 14:27] LABS: URINE LEUKOCYTES-REFLEX 1+ (Negative)
[2020-11-08 14:28] LABS: ALBUMIN 1.8 g/dL (3.4-5.0); CALCIUM 7.9 mg/dL (8.5-10.1); CREATININE 0.7 mg/dL (0.6-1.0); TOTAL BILIRUBIN 0.4 mg/dL (0.2-1.0); TOTAL PROTEIN 4.9 g/dL (6.4-8.2)
[2020-11-08 14:30] LABS: POTASSIUM 2.7 mmol/L (3.5-5.1)
[2020-11-08 14:38] LABS: CASTS None Seen /LPF (None Seen); CRYSTALS None Seen /LPF (None Seen); SQUAMOUS 4-10 Moderate /LPF (0-3)
[2020-11-08 14:41] LABS: BACTERIA-REFLEX 1-9 Few /HPF (None Seen); URINE RBC 0-2 Rare /HPF (0-2); URINE WBC-REFLEX 0-5 Rare /HPF (0-5); YEAST-REFLEX Present (None Seen)
[2020-11-08 19:00] VITALS: BP 149/89
[2020-11-08 19:19] VITALS: BP 139/91
[2020-11-08 20:26] VITALS: BP 131/79
[2020-11-08 23:09] VITALS: BP 155/98
[2020-11-09 03:48] VITALS: BP 145/89
--- NOTE | 2020-11-09 05:46 | NUR ---
Arrived from ER around 2014. Requested pain med for chest pain which pt. stated she had for years due to fibromyalgia. She stated she slept well during the night. O2 sat this am 87% in RA , O2 at 1LNC applied - O2 sat up to mid to upper 90's on1L/NC. Bed alarm on , SCD's in place. Cont. on enhanced precaution pending COVID test results , afebrile.
[2020-11-09 08:22] VITALS: BP 130/86
[2020-11-09 19:27] VITALS: BP 146/93
--- NOTE | 2020-11-09 19:52 | NUR ---
PATIENT HAS BEEN PLEASANT. ENCOURAGED TO EAT SHE STATES SHE DOES NOT HAVE THE APPETITE. WILL CONT WITH PLAN OF CARE.
--- NOTE | 2020-11-10 02:33 | NUR ---
ASSUMED CARE OF PATIENT AT 1900. BP ELEVATED, HEART RATE ELEVATED, FEBRILE. HYDROCODONE GIVEN FOR PAIN AND FEVER. TEMP REDUCED TO NORMAL, HEART RATE REMAINS ELEVATED. DR. JEFFREY YO NOTIFIED. ORDERS FOR METOPROLOL RECEIVED. STEVENSON RATE WITHIN NORMAL RANGE. C/O WEIGHT LOSS, LOSS OF APPETITE. STATES SHE IS WILLING TO GO TO REHAB. WORKING TOWARDS POC GOALS.
[2020-11-10 03:56] VITALS: BP 152/106
[2020-11-10 07:14] LABS: HEMATOCRIT 28.4 % (37.0-47.0); HEMOGLOBIN 8.9 gm/dL (12.0-15.0); MCH 29.2 pg (26.0-34.0); MCHC 31.5 g/dL (28.0-37.0); MCV 92.6 fL (80.0-100.0); RBC 3.07 mil/uL (4.20-5.00); WBC 13.3 thou/uL (4.0-11.0)
[2020-11-10 07:18] LABS: CREATININE 0.7 mg/dL (0.6-1.0); MAGNESIUM 1.3 mg/dL (1.8-2.4); POTASSIUM 5.2 mmol/L (3.5-5.1)
[2020-11-10 07:47] VITALS: BP 145/104
[2020-11-10 15:23] VITALS: BP 138/94
--- NOTE | 2020-11-10 16:50 | NUR ---
STAFFF HEAD BED ALARM GO OFF IN ROOM AND ON GETTING TO ROOM PATIENT WAS NOTED AMBULATING AWAY FROM BED. GOT WEAK AND FELL. STAFF COULD NOT REACH TO HER IN TIME TO CATCH HER. SHE STATES SHE DID NOT REALISE SHE WAS IN THE HOSPITAL AND DID NOT CALL FOR FOR HELP. PATIENT APPEARS CONFUSED ON WHERE SHE IS . XRAY SHOWED FRACTURE TO LEFT HIP. DR MORALES NOTIFIED AND SPOKE WITH PATIENTS SISTER JULISA ABOUT NATURE OF FALL.
[2020-11-10 20:00] VITALS: BP 141/83
[2020-11-11 04:10] VITALS: BP 124/86
[2020-11-11 05:31] LABS: CALCIUM 7.7 mg/dL (8.5-10.1); CREATININE 0.6 mg/dL (0.6-1.0)
[2020-11-11 05:36] LABS: POTASSIUM 3.4 mmol/L (3.5-5.1)
--- NOTE | 2020-11-11 06:20 | NUR ---
ASSUMED PT CARE AT 1900. VSS PT INITIALLY SOMEWHAT CONFUSED SHE THOUGHT SHE WAS IN HER SONS HOUSE. PT REORIENTED. PT COMPLAINED OF LEFT HIP PAIN AND LOWER BACK PAIN THROUGH THE NOC. PT STARTED ON D5NS AT 75 THIS SHIFT NA WAS 131 FROM LAB. PT IS STABLE, WANTS HER HYDROCODONE INSTEAD. WILL RELAY TO DAY NURSE. WILL CONTINUE TO MONITOR.
--- NOTE | 2020-11-11 07:35 | EKG ---
[address] [place] [address] ELECTROCARDIOGRAM REPORT Name: CRISTIANELINDASUNNIEMILY CROCKER Room #: 360-P ADM IN M.R.#: [id number] Admission: 11/08/20 Attend Phys: Dontae Manning MD Discharge: Date of : 50 Report #: [id number] [facility] ED Test Date: 2020-11-08 Test Time: 13:37:51 Pat Name: SUNNI CERDA Department: Room: 360 Gender: F Machine Spreader: BIANCA : 1950 Requested By: Josie Aguirre Order Number: [id number] MD: Hayden Ballard Measurements Intervals [place] Rate: 101 P: 36 FL: 132 QRS: -26 QRSD: 85 T: 22 QT: 332 QTc: 431 Interpretive Statements Sinus tachycardia Inferior infarct, old Compared to ECG 09/23/2020 17:11:42 Sinus rhythm no longer present Prolonged QT interval no longer present Myocardial infarct finding still present Electronically Signed On 11-11-2020 7:35:24 [employer]ICONDUCTOR WAFER INSPECTOR by Hayden Ballard [email or web address] <ELECTRONICALLY SIGNED> By: Hayden Ballard MD, [facility] 11/11/20 0735 36 36 Hayden Ballard MD, FAC /EPI
[2020-11-11 08:22] VITALS: BP 130/95
--- NOTE | 2020-11-11 09:03 | NUR ---
PATIENT WITH HIP FX, SURGERY PLANNED TODAY. WILL PLACE ON HOLD AND AWAIT POST OP ORDERS
--- NOTE | 2020-11-11 14:25 | NUR ---
INITIAL ASSESSMENT: Received consult for discharge planning. SW reviewed chart and spoke with nursing and attending physician. Pt was admitted from home due to hypokalemia, pneumonia, debility. Pt had negative COVID test on 11/08. Pt fell over the weekend and has a left femur fx. Pt to have surgery today. SW met with pt at bedside. Introduced role of SW. Pt is alert/orientated. Pt reports she lives at home with her sister and family. Pt has a walker at home. No hx of services. Pt's PCP is Dr. Arnold Wray in [place]. SW discussed possible need for post-acute placement prior to returning home. Pt is interested in 5N. SW discussed with 5N regional liaison. Therapy and 5N to evaluate tomorrow. SW is following to assist as needed with discharge planning.
--- NOTE | 2020-11-11 14:57 | NUR ---
ASSUMED CARE 0700 PT ALERT ORIENTED. SPOKE W/[employer] ABUSE SOCIAL WORKER @ 0800. PT TO GO FOR HIP SURGERY @ 1030. 1030 PT SENT FOR SURGERY. AM MEDS HELD. METOPROLOL MISSING FROM PYXIS AM, UNABLE TO GIVE PRIOR TO SURGERY. PT RETURNED TO FLOOR 1430. VSS.
[2020-11-11 20:28] VITALS: BP 122/81
[2020-11-12 04:22] VITALS: BP 148/97
[2020-11-12 07:37] VITALS: BP 118/75
--- NOTE | 2020-11-12 08:04 | O ---
[facility] [place] [address] OPERATIVE REPORT Name: SUNNI CERDA Room #: 360-P ADM IN M.R.#: [id number] Admission: 11/08/20 Attend Phys: Dontae Manning MD Discharge: Date of : 50 Report #: [id number] THIS REPORT FOR: cc: José Wrya Steve T. DO Clymer, David J. MD ~ DATE OF SERVICE: 11/11/2020 PREOPERATIVE DIAGNOSIS: Left intertrochanteric femur fracture. POSTOPERATIVE DIAGNOSIS: Left intertrochanteric femur fracture. PROCEDURE: Open reduction and internal fixation using antegrade TFN nail fixation of left proximal femoral fracture. SURGEON: Keith Terrell MD INDICATIONS: This very frail 69-year-old female was recently in the hospital with severe vascular problems with ischemic bowel. She underwent management with placement of vascular stents and seemed to be making progress and was discharged home, subsequently she fell at home injuring the left hip. X-rays reveal a nondisplaced fracture in the intertrochanteric region of the left proximal femur. I have discussed this with the patient, reviewing treatment options, she prefers to go ahead with surgical stabilization. DESCRIPTION OF PROCEDURE: The patient was taken to the operating room where she was placed under brief general anesthetic. She was positioned on the fracture table, so that the left hip could be visualized with C-arm. The fracture appears to be in anatomic alignment on the lateral aspect of the left hip and thigh were meticulously prepped and draped. A small skin incision was made over the greater trochanter and a guidewire passed through the canal. The trochanter was opened and a Synthes TFN nail was inserted using the standard length, 10 mm diameter nail. This was advanced to an appropriate level. A lateral guidewire was placed into the femoral neck and head region and checked on C-arm views and it seemed to be in good position. A 90 mm length helical blade was inserted with satisfactory purchase. It was placed up to a point about 1 cm below the subchondral bone in the femoral head. Good purchase and stability was established. The proximal locking screw was tightened and the distal interference screw was placed using the outrigger guide and using a 32 mm length screw. This also seemed to have good purchase. The small wounds were then [facility] [address] [place] [address] OPERATIVE REPORT Name: TOMMAYOSUNNI [facility] Room #: 360-[facility] IN M.R.#: [id number] Admission: 11/08/20 Attend Phys: Dontae Manning MD Discharge: Date of : 50 Report #: [id number] irrigated and closed using 2-0 Monocryl and rita in the skin. A sterile dressing was applied. The patient was awakened and returned to recovery room. <ELECTRONICALLY SIGNED> By: Keith Terrell MD 11/12/20 0804 [id number] Keith Terrell MD /darlyn
--- NOTE | 2020-11-12 09:22 | NUR ---
Note Given: Y Facility List Provided:Y Facility Dutch: None chosen at this time Macy Vega Discussed BPCI with this pt 11/11/2020
[2020-11-12 10:08] LABS: ABSOLUTE NEUTROPHILS 15.6 thou/uL (1.4-8.2); BASOPHILS 0.1 % (0.0-2.0); HEMATOCRIT 23.1 % (37.0-47.0); HEMOGLOBIN 7.2 gm/dL (12.0-15.0); LYMPHOCYTES 4.4 % (24.0-44.0); MCH 28.8 pg (26.0-34.0); MCV 92.9 fL (80.0-100.0); MONOCYTES 3.1 % (1.0-8.0); POLYS 92.4 % (36.0-66.0); RBC 2.49 mil/uL (4.20-5.00); RDW 16.6 % (10.5-14.5); WBC 16.9 thou/uL (4.0-11.0)
[2020-11-12 10:10] LABS: PLATELET COUNT 433 thou/uL (150-400)
[2020-11-12 10:16] LABS: CALCIUM 7.9 mg/dL (8.5-10.1); CREATININE 0.6 mg/dL (0.6-1.0); POTASSIUM 3.5 mmol/L (3.5-5.1)
--- NOTE | 2020-11-12 13:43 | NUR ---
MARIAH reviewed chart and spoke with nursing and attending physician. Pt is POD #1 ORIF left femur. Pt is on 4L of O2. SW met with pt at bedside. Pt requesting pain medications prior to working with therapy. SW discussed consult for 5N to evaluate for inpt acute rehab prior to returning home. Pt states she knows she will need rehab but does not know where she wants to go. SW discussed the differences in levels of care of inpt acute rehab or SNF. MARIAH discussed with 5N director of rehabilitation and wellness. Awaiting input from therapy and 5N. SW is following to assist as needed with discharge planning.
[2020-11-12 20:22] VITALS: BP 138/91
[2020-11-13 04:11] VITALS: BP 141/88
[2020-11-13 05:32] LABS: MCH 29.7 pg (26.0-34.0); MCHC 31.4 g/dL (28.0-37.0)
[2020-11-13 05:34] LABS: HEMATOCRIT 20.4 % (37.0-47.0); MCV 94.6 fL (80.0-100.0); PLATELET COUNT 414 thou/uL (150-400); RBC 2.15 mil/uL (4.20-5.00); RDW 16.8 % (10.5-14.5); WBC 11.1 thou/uL (4.0-11.0)
[2020-11-13 05:52] LABS: HEMOGLOBIN 6.4 gm/dL (12.0-15.0)
--- NOTE | 2020-11-13 06:42 | NUR ---
PT MAKING SLOW PROGRESS TOWARDS GOALS. PT SLEP MUCH OF THE NIGHT. X2 PERCOCET GIVEN FOR PAIN. PT ASLEEP AFTER EACH DOSE.
[2020-11-13 09:52] VITALS: BP 121/74
[2020-11-13 10:00] VITALS: BP 120/80; BP 123/78
[2020-11-13 10:31] LABS: ABSOLUTE NEUTROPHILS 9.9 thou/uL (1.4-8.2); ANISOCYTOSIS SLIGHT; HYPOCHROMASIA SLIGHT; TOXIC GRANULATION 1+
--- NOTE | 2020-11-13 10:41 | NUR ---
MARIAH reviewed chart and spoke with nursing and attending physician. Pt is POD #2. MARIAH was notified by 5N rehabilitation aide/scheduler that pt does not qualify for inpt acute rehab at this time. Recommendation made for pt to consider SNF placement. MARIAH met with pt at bedside. Pt not wanting to discuss discharge plans. Psych to be consulted for competency. Pt may need peg tube placement for nutritional purposes. Pt's hemoglobin is 6.4. Pt to have blood transfusion. MARIAH is following to assist as needed with discharge planning.
[2020-11-13 11:28] VITALS: BP 128/68
--- NOTE | 2020-11-13 15:01 | NUR ---
PT NOTED TO HAVE BLOOD STOOL. CONTACT DR. MORALES AND INSTRUCTED TO OBTAIN GI CONSULT.
[2020-11-13 15:40] LABS: HEMATOCRIT 24.9 % (37.0-47.0); HEMOGLOBIN 7.9 gm/dL (12.0-15.0); MCH 29.3 pg (26.0-34.0); MCHC 31.7 g/dL (28.0-37.0); MCV 92.5 fL (80.0-100.0); RBC 2.7 mil/uL (4.20-5.00); RDW 15.1 % (10.5-14.5); WBC 13.8 thou/uL (4.0-11.0)
[2020-11-13 15:46] VITALS: BP 132/79
--- NOTE | 2020-11-13 16:55 | NUR ---
PT OFF UNIT TO CT.
--- NOTE | 2020-11-13 17:29 | NUR ---
PT RETURN FROM CT. ABLE TO WEAN PT DOWN TO ROOM AIR TODAY.
--- NOTE | 2020-11-13 18:36 | NUR ---
SIRGICAL DRESSING LEFT HIP INTACT AND CDI.
[2020-11-13 19:20] VITALS: BP 138/87
[2020-11-13 23:26] LABS: HEMATOCRIT 23.4 % (37.0-47.0); HEMOGLOBIN 7.6 gm/dL (12.0-15.0)
[2020-11-14 02:51] VITALS: BP 133/89
--- NOTE | 2020-11-14 07:32 | NUR ---
PROGRESS PT A/O X4 DROWSY UP WITH ASSIST OF 1 GB AND WALKER LIMITED WEIGHT BEARING TO LEFT LEG TO BEDSIDE COMMODE HAD 3 MARROON JELLY LIKE STOOLS . SURGICAL INCISION COVERED WITH ABD AND MEPILEX TAPE REMANS C/D/I. CARVALHO IN PLACE DRAINING CLEAR YELLOW URINE. LUNGS DIMINISHED PT ON 1 LITER O2 VIA NC SATS AT 94% AND ABOVE. IVF'S INFUSING ORDERED. PEDAL PULSES POSITIVE AND ABLE TO DORSI AND PEDAL FLEX WITHOUT DIFFICULTY, SENSATION INTACT, SCD'S IN PLACE TAKING LIQUIDS IN MODERATION. CONTINUE TO MONITOR.
[2020-11-14 07:43] LABS: HEMOGLOBIN 6.6 gm/dL (12.0-15.0)
[2020-11-14 07:48] LABS: HEMATOCRIT 19.7 % (37.0-47.0)
[2020-11-14 08:00] VITALS: BP 123/76
[2020-11-14 10:26] VITALS: BP 142/86; BP 158/100
[2020-11-14 14:57] LABS: HEMATOCRIT 26.6 % (37.0-47.0)
[2020-11-14 15:51] LABS: ALBUMIN 1.3 g/dL (3.4-5.0); CALCIUM 7.4 mg/dL (8.5-10.1); CREATININE 0.5 mg/dL (0.6-1.0); MAGNESIUM 1.3 mg/dL (1.8-2.4); POTASSIUM 4.1 mmol/L (3.5-5.1); TOTAL BILIRUBIN 0.3 mg/dL (0.2-1.0); TOTAL PROTEIN 3.9 g/dL (6.4-8.2)
--- NOTE | 2020-11-14 17:23 | NUR ---
PICC PLACEMENT PER HOSPITAL PROTOCOL. 37CM AND ADVANCED WITHOUT DIFFICULTY. LINE CONFIRMED AT 0CM EXTERNAL USING SHERLOCK 3CG
[2020-11-14 18:00] VITALS: BP 143/92
[2020-11-14 19:19] VITALS: BP 136/87
[2020-11-14 23:35] LABS: HEMATOCRIT 25.2 % (37.0-47.0); HEMOGLOBIN 8.5 gm/dL (12.0-15.0)
[2020-11-15 04:00] VITALS: BP 148/91
[2020-11-15 04:33] LABS: HEMATOCRIT 25.5 % (37.0-47.0); HEMOGLOBIN 8.5 gm/dL (12.0-15.0); MCHC 33.3 g/dL (28.0-37.0); MCV 90.2 fL (80.0-100.0); RBC 2.83 mil/uL (4.20-5.00); RDW 15.2 % (10.5-14.5); WBC 6.6 thou/uL (4.0-11.0)
[2020-11-15 05:07] LABS: ALBUMIN 1.2 g/dL (3.4-5.0); CALCIUM 7.5 mg/dL (8.5-10.1); CREATININE 0.5 mg/dL (0.6-1.0); MAGNESIUM 1.4 mg/dL (1.8-2.4); POTASSIUM 3.3 mmol/L (3.5-5.1); TOTAL BILIRUBIN 0.3 mg/dL (0.2-1.0); TOTAL PROTEIN 4.3 g/dL (6.4-8.2)
--- NOTE | 2020-11-15 05:31 | NUR ---
PROGRESS PT PROGRESSING SLOWLY, NO BLOODY STOOLS THIS SHIFT. DENIES ABDOMINAL PAIN BUT PAIN TO LEFT HIP AND LOWER BACK SHE IS RATING A 10 25 MCG FENTANYL GIVEN IVP WITH SOME EFFECT BUT PT STATES SHE NEEDS ORAL PAIN MEDICATION TO RELIEVE PAIN OXYCODONE GIVEN X 2 WITH A SIP OF WATER. CARVALHO DRAINING LARGE QUANTITY OF CLEAR YELLOW URINE VSS, AFEBRILE. BOWELS SOUNDS HYPOACTIVE BUT PRESENT IN ALL QUADS ABDOMEN SOFT AND NON-DISTENDED. BRUISING TO ARMS AND BACK FROM FALL. PICC LINE TO NEVAEH INTACT WITH GOOD BLOOD RETURN AND FLUSHES WITHOUT DIFFICULY. 2 PERIPHERAL IV'S INTACT NO REDNESS SWELLING OR DISCOMFORT NOTED. REPOSITIONED FREQUENTLY PT SLEPT ON AND OFF THROUGHOUT NIGHT.
[2020-11-15 07:24] VITALS: BP 147/88
--- NOTE | 2020-11-15 07:53 | NUR ---
Note Given: Y Facility List Provided:Y Facility Dutch: None chosen at this time Macy Vega NP discussed BPCI with this pt 11/13/2020
--- NOTE | 2020-11-15 12:32 | NUR ---
MARIAH reviewed chart and spoke with nursing and attending physician. Pt remains NPO at this time. Surgery consulted due to SBO. Pt is on 1L of O2 and IV abx. Pt might be started on TPN. No weekend discharge planned. SW left voice message for pt's sister, Funmi ([phone]) to discuss discharge planning. Recommendation made for post-acute placement. SW if following to assist as needed with discharge planning.
[2020-11-15 16:16] VITALS: BP 150/99
--- NOTE | 2020-11-15 17:51 | NUR ---
PATIENT UPSET THIS AM DUE TO NPO STATUS. AFTER SEEN BY DOCTOR ARAUJO, OKAY FOR PATIENT TO HAVE CLEAR LIQUID DIET, TOLERATING. AT THIS TIME NO PLANS FOR SURGICAL INTERVENTION, MONITORING. PATIENT WITH SIGNIFICANT PAIN, IV FENTANYL AND PO OXYCODONE GIVEN.
[2020-11-15 21:14] VITALS: BP 140/98
[2020-11-16 03:41] VITALS: BP 147/95
[2020-11-16 05:27] LABS: CALCIUM 7.7 mg/dL (8.5-10.1); CREATININE 0.5 mg/dL (0.6-1.0); MAGNESIUM 1.5 mg/dL (1.8-2.4); PHOSPHORUS 3.2 mg/dL (2.6-4.7); POTASSIUM 3.8 mmol/L (3.5-5.1)
--- NOTE | 2020-11-16 05:43 | NUR ---
Medicated for pain with good relief. Woke up this am in good spirits stating she slept well during the night. Toleating clear liquids , no nausea. TPN infusing. Tolerating room air well , no respiratory distress. She has been afebrile. Left hip incision with dressing CDI.
[2020-11-16 07:31] VITALS: BP 132/86
[2020-11-16 08:36] LABS: ABSOLUTE NEUTROPHILS 2.6 thou/uL (1.4-8.2); BASOPHILS 0.7 % (0.0-2.0); EOSINOPHILS 1.5 % (0.0-3.0); HEMATOCRIT 24.3 % (37.0-47.0); HEMOGLOBIN 8.1 gm/dL (12.0-15.0); LYMPHOCYTES 20.8 % (24.0-44.0); MCH 30.7 pg (26.0-34.0); MCHC 33.6 g/dL (28.0-37.0); MCV 91.4 fL (80.0-100.0); MONOCYTES 11.5 % (1.0-8.0); PLATELET COUNT 394 thou/uL (150-400); POLYS 65.5 % (36.0-66.0); RBC 2.65 mil/uL (4.20-5.00); RDW 15.3 % (10.5-14.5)
[2020-11-16 15:15] VITALS: BP 143/89
--- NOTE | 2020-11-16 16:35 | NUR ---
assumed care of pt at 0700. pt alert and oriented to situation, pleasant, in no acute distress. poor appetite. complains of pain with activity. refusing therapy this morning. ppn infusing per order. passing gas, but no bowel movement. wcm.
[2020-11-16 19:20] VITALS: BP 124/81
--- NOTE | 2020-11-17 04:12 | NUR ---
Medicated for pain with good relief. She slept well during the night. Tolerating room air well with no respiratory distress.Also tolerating clear liquids with meds , no nausea or vomiting. Incontinent of bm last night then requested to get up to commode and had large loose bm. IV on right AC and right FA dc'd , pt. has PICC line with TPN infusing. Dressing on left hip changed , left hip with rita and well approximated. Making some progress towards care plan goals.
[2020-11-17 04:52] VITALS: BP 118/74
[2020-11-17 06:50] LABS: HEMATOCRIT 25.9 % (37.0-47.0); HEMOGLOBIN 8.4 gm/dL (12.0-15.0); MCH 29.5 pg (26.0-34.0); MCHC 32.5 g/dL (28.0-37.0); MCV 90.9 fL (80.0-100.0); PLATELET COUNT 378 thou/uL (150-400); RBC 2.85 mil/uL (4.20-5.00); RDW 14.7 % (10.5-14.5); WBC 4.3 thou/uL (4.0-11.0)
[2020-11-17 07:19] LABS: ALBUMIN 1.4 g/dL (3.4-5.0); CALCIUM 8.2 mg/dL (8.5-10.1); CREATININE 0.4 mg/dL (0.6-1.0); MAGNESIUM 1.6 mg/dL (1.8-2.4); PHOSPHORUS 3.3 mg/dL (2.6-4.7); POTASSIUM 3.7 mmol/L (3.5-5.1); TOTAL BILIRUBIN 0.3 mg/dL (0.2-1.0); TOTAL PROTEIN 4.9 g/dL (6.4-8.2)
[2020-11-17 07:25] VITALS: BP 132/80
[2020-11-17 07:46] LABS: ABSOLUTE NEUTROPHILS 2.4 thou/uL (1.4-8.2); METAMYELOCYTES 2 %; MYELOCYTES 2 %
[2020-11-17 07:47] LABS: ANISOCYTOSIS 1+; POLYCHROMASIA OCCASIONAL
[2020-11-17 15:44] VITALS: BP 117/75
--- NOTE | 2020-11-17 19:40 | NUR ---
RN ASSUMED PT'S CARE AT 0700AM, PT IS A&OX2 ( PERSON AND PLACE), PT CAN FOLLOW COMMANDS, PT'S L HIP PAIN CAN CONTROL BY MEDICATIONS, PT HAS POOR EATING AT MEAL TIME, PT IS CONTINUING IV ABX AND TPN@ 30ML/HR,PT'S VS ARE STABLE AT THIS TIME.
[2020-11-17 19:59] VITALS: BP 147/93
--- NOTE | 2020-11-17 23:01 | NUR ---
PT RESTING IN BED WATCHING TV. PT REPOSITIONS SELF IN BED. PICC, IVF AND TPN INTACT. L HIP DRESSING DRY INTACT, OLD BRUISES BUE. PT DECLINED HS SNACK. PT ALERT TO SELF AND SITUATION. CARVALHO TO DD. BED ALARM ON.
[2020-11-18 04:15] VITALS: BP 132/82
[2020-11-18 06:20] LABS: CALCIUM 8.2 mg/dL (8.5-10.1); CREATININE 0.5 mg/dL (0.6-1.0); MAGNESIUM 1.7 mg/dL (1.8-2.4); PHOSPHORUS 3.3 mg/dL (2.5-4.9); POTASSIUM 4.1 mmol/L (3.5-5.1)
[2020-11-18 07:27] VITALS: BP 128/93
--- NOTE | 2020-11-18 11:25 | NUR ---
SW reviewed chart and spoke with nursing and attending physician. Pt is progressing towards goals for discharge. Pt is on TPN and has been started on a diet. MARIAH met with pt at bedside to discuss post-acute placement. SW provided options for SNF placement. Pt requesting referral to be sent to [facility] due to location. MARIAH faxed SNF referral and notified Mellissa in admissions of new referral. 5N director of pediatric rehabilitation notified SW that they are going to re-eval and see if pt may qualify for inpt acute rehab. MARIAH is following to assist as needed with discharge planning.
[2020-11-18 15:40] VITALS: BP 140/81
[2020-11-18 19:08] VITALS: BP 111/65
--- NOTE | 2020-11-18 19:44 | NUR ---
RN ASSUMED PT'S CARE AT 0700AM, PT IS A&OX2 ( PERSON AND PLACE), PT IS CONTINUING IV ABX AND TPN, PT STILL EATS POOR AT MEAL TIME, PT'S VS ARE STABLE, PT 'S L HIP PAIN CAN CONTROLED .
--- NOTE | 2020-11-18 22:32 | NUR ---
PT WATCHING TV IN BED, PT REPOSITIONS SELF FREQUENTLY. PT VERY TALKATIVE, THINKING NURSE IS LEAVING AT 3 TO SILK SCREENER THE CHILDREN AND THAT SHE WANTS TO SLEEP AND NOT INTERUPT THE NURSES ERRANDS. THANKED THE NURSE FOR BEING BRAVE, VERY CHEERFUL PLEASANT AND TALKATIVE. L HIP DRESSING DRY INTACT. OLD BRUISES BLE. PT TALKING ABOUT WANTING A NEW HAIR STYLE SOON. TPN AND IV MEDS INTACT. BED ALARM ON. PRN FOR L HIP PAIN PROVIDED.
[2020-11-19 05:27] VITALS: BP 139/88
[2020-11-19 06:22] LABS: HEMATOCRIT 26.2 % (37.0-47.0); HEMOGLOBIN 8.6 gm/dL (12.0-15.0); MCHC 32.7 g/dL (28.0-37.0); MCV 91.7 fL (80.0-100.0); RBC 2.86 mil/uL (4.20-5.00)
[2020-11-19 06:47] LABS: ALBUMIN 1.5 g/dL (3.4-5.0); CALCIUM 8.1 mg/dL (8.5-10.1); CREATININE 0.5 mg/dL (0.6-1.0); TOTAL BILIRUBIN 0.2 mg/dL (0.2-1.0)
[2020-11-19 07:18] VITALS: BP 130/85
[2020-11-19 15:21] VITALS: BP 129/90
--- NOTE | 2020-11-19 15:33 | NUR ---
MARIAH reviewed chart and spoke with nursing and attending physician. Pt remains on TPN. Pt has started a calorie count. MARIAH spoke with admissions dept at [facility], who states they would be able to accept pt if she is off the TPN. MARIAH discussed case with [facility] rehab therapist, who states they will continue to follow pt to see if she will meet admission criteria for inpt acute rehab. MARIAH is following to assist as needed with discharge planning.
--- NOTE | 2020-11-19 16:40 | NUR ---
assumed care of pt at 0700. pt alert and oriented, pleasant, in no acute distress. pain controlled with current med regimen. up to chair for most of the day. diet advanced to soft foods - now eating more. calorie count in place. wcm.
[2020-11-19 19:32] VITALS: BP 119/75
[2020-11-20 04:36] VITALS: BP 124/79
--- NOTE | 2020-11-20 04:58 | NUR ---
Pt. requested pain med at HS for generalized discomfort. Oxycodone given with good relief. She slept well during the night. She stated since her diet had been advanced to soft diet , she ate better. TPN infusing.
[2020-11-20 08:00] VITALS: BP 127/78
[2020-11-20] MEDS ORDERED: PERCOCET PO (11:08)
[2020-11-20] MEDS ORDERED: AUGMENTIN 875-1 EACH PO (11:08)
[2020-11-20] MEDS ORDERED: K-DUR 20 MEQ T20 MEQ PO (11:08)
[2020-11-20] MEDS ORDERED: METOPROLOL TART25 MG PO (11:08)
[2020-11-20] MEDS ORDERED: LIDOPATCH1 EACH TRANSDERM (11:08)
--- NOTE | 2020-11-20 14:31 | NUR ---
DISCHARGE NOTE: MARIAH reviewed chart and spoke with nursing and attending physician. Pt is medically stable for discharge today. TPN has been discontinued. MARIAH spoke with pt's sister, Funmi, via phone to provide update and discussed discharge plan. Pt's family is agreeable with pt going to [facility] or [facility]. MARIAH discussed case with rehab nurse, who states they are able to accept pt today. Pt will need repeat COVID test prior to admission to 5. MARIAH met with pt at bedside. Pt sleeping soundly. MARIAH left voice message for pt's sister, Funmi, to provide update. Pt to discharge to [facility] later today pending COVID results. MARIAH updated [facility] liaison, that pt is going to [facility]. Rehab CM to follow and assist as needed with discharge planning.
--- NOTE | 2020-11-20 14:44 | NUR ---
Nutrition: 24 hour calorie count complete. Pt consumed 1450 kcals and 75 gm protein meeting 103-113% of needs. Pt consumed 100% of 2 ensure enlives this day. TPN will D/C today and RD agrees. Will D/C calorie count and continue to monitor, provide oral supplements.
[2020-11-20 17:00] VITALS: BP 112/74
--- NOTE | 2020-11-20 18:41 | NUR ---
RN ASSUMED PT'S CARE AT 0700AM, PT IS A&OX2 ( PERSON AND PLACE), PT 'S EATING HAS IMPROVED, PT IS ROOM AIR , PT'S VS ARE STABLE, PT'S L HIP PAIN CAN CONTROL , BUT PT STILL HAS WEAKNESS , PT WILL DC TO [facility] TODAY WHEN PT'S COVID TEST IS NEGATIVE, PT'S CARVALHO CATHETER HAS DC AT 1730PM, PT'S PICC LINE REMOVED AT 1830PM PER DR ORDERS, PT HAS COVID TEST TODAY.
[2020-11-20 19:48] VITALS: BP 116/71
[2020-11-20 21:08] VITALS: BP 116/71
== END 2020-11-20 22:00 | DRG 480 ==
LOC: ER 13:28 → 3W 16:29 → EROBS 16:29 → 3W 19:51
PROVIDERS: Internal Medicine; Nurse Practitioner; Nurse Practitioner Family; Orthopaedic Surgery Sports Medicine; Surgery; ADMIT Hospitalist; ATTEND Hospitalist
PROC: 0QS706Z Reposition Left Upper Femur with Intramedullary Internal Fixation Device, Open Approach (ICD-10-PCS; 2020-11-11)
PROC: 30233N1 Transfusion of Nonautologous Red Blood Cells into Peripheral Vein, Percutaneous Approach (ICD-10-PCS; 2020-11-13)
PROC: 02HV33Z Insertion of Infusion Device into Superior Vena Cava, Percutaneous Approach (ICD-10-PCS; principal; 2020-11-14)
PROC: 3E0436Z Introduction of Nutritional Substance into Central Vein, Percutaneous Approach (ICD-10-PCS; 2020-11-15)
DX: S72.145A Nondisplaced intertrochanteric fracture of left femur, initial encounter for closed fracture (principal); J18.9 Pneumonia, unspecified organism; J96.01 Acute respiratory failure with hypoxia; E43 Unspecified severe protein-calorie malnutrition; G93.41 Metabolic encephalopathy; K92.1 Melena; N39.0 Urinary tract infection, site not specified; D62 Acute posthemorrhagic anemia; K55.9 Vascular disorder of intestine, unspecified; Z68.1 Body mass index [BMI] 19.9 or less, adult; K56.609 Unspecified intestinal obstruction, unspecified as to partial versus complete obstruction; K21.9 Gastro-esophageal reflux disease without esophagitis; I10 Essential (primary) hypertension; F41.9 Anxiety disorder, unspecified; F32.9 Major depressive disorder, single episode, unspecified; E87.6 Hypokalemia; B37.3 Candidiasis of vulva and vagina; B96.20 Unspecified Escherichia coli [E. coli] as the cause of diseases classified elsewhere; F17.210 Nicotine dependence, cigarettes, uncomplicated; M79.7 Fibromyalgia; G89.4 Chronic pain syndrome; K29.70 Gastritis, unspecified, without bleeding; E83.39 Other disorders of phosphorus metabolism; M48.00 Spinal stenosis, site unspecified; M06.9 Rheumatoid arthritis, unspecified; M32.9 Systemic lupus erythematosus, unspecified; I73.9 Peripheral vascular disease, unspecified; E83.42 Hypomagnesemia; K64.8 Other hemorrhoids; W19.XXXA Unspecified fall, initial encounter; Y93.89 Activity, other specified; Y92.89 Other specified places as the place of occurrence of the external cause; Y99.8 Other external cause status; Z90.710 Acquired absence of both cervix and uterus; Z87.11 Personal history of peptic ulcer disease; Z20.822 Contact with and (suspected) exposure to COVID-19
CPT/HCPCS: 10879; 27000; 50010; 50101; 50133; 50386; 51412; 51538; 52304; 56525; 57092; 5743; 5747; 57901; 62110; 62900; 70005

== ENCOUNTER 2020-11-20 13:47 | Inpatient (IN) | payer OTHER ==
[~2020-11-20] VITALS: Ht 157.5 cm; Wt 36.1 kg
--- NOTE | ~2020-11-20 | HC ---
[facility] [place] [address] CONSULTATION Name: SUNNI CERDA Room #: 513-P ADM IN M.R.#: [id number] Admission: 11/20/20 Attend Phys: Keith Godwin MD Discharge: Date of : 50 Report #: [id number] THIS REPORT FOR: cc: José Wray Steve T. DO Deutch, Neal B. PhD ~ DATE OF SERVICE: 11/23/2020 NEUROBEHAVIORAL STATUS EXAM ATTENDING PHYSICIAN: Keith Godwin MD SKILL TRAINING PROGRAM COORDINATOR: Claudio Arguello, PhD CLINICAL PRESENTATION: The patient is a 69-year-old female admitted to the [facility] Rehabilitation Unit for comprehensive inpatient rehabilitation program. She initially was admitted to the hospital on 11/08/2000 after a fall and weakness in her home. The patient reportedly had hit her head when she fell, but does not report loss of consciousness. Her problem list on admission to the hospital was abdominal pain, acute upper gastrointestinal bleeding, anorexia, celiac artery dissection, chest wall pain, colitis, contusion, dehydration, elevated troponin, exacerbation of chronic back pain, generalized weakness, left hip fracture, hypokalemia, intractable vomiting, ischemic colitis, lactic acidosis, malaise, opiate withdrawal, pancreatitis, pneumonia, sepsis, ____, upper gastrointestinal bleeding, vaginal candidiasis and weakness. A complete description of her medical condition and history can be found in her medical record. Her assessment on admission to the rehabilitation unit was acute metabolic encephalopathy, left IT hip fracture, status post IM nailing, obstructive colitis, recurrent falls, hypokalemia, E. coli UTI, spinal stenosis, chronic pain and fibromyalgia, SLE and RA, anemia, anxiety/depression and recent colitis, mesenteric ischemia. As indicated, a complete description of her medical condition and history along with medications can be found in her medical record. Neuropsychological consultation was requested to provide assistance in the assessment of cognitive and emotional status and to provide recommendations and services. Prior to this most recent admission, she was living with her sister, son and a nephew. The patient has one child. She is a high school graduate. She was employed in [employer] business prior to her alf. She indicates having discontinued driving and was not cooking at the time of her admission. Decreased insight into the extent of her deficits are suggested. She does acknowledge difficulty with appetite. She does not report anxiety, depression, difficulty with sleep, memory and word finding. [facility] [address] [place] [address] CONSULTATION Name: SUNNI CERDA LIZZETTE Room #: 513-P [facility] IN M.R.#: [id number] Admission: 11/20/20 Attend Phys: Keith Godwin MD Discharge: Date of : 50 Report #: [id number] Her performance on the MMSE 2 brief version was extremely low with a raw score of 12/16. She was 3/3 for initial registration, 4/5 for orientation to time and 5/[address]. She was 0/3 for immediate recall of 3 items after a brief time delay and distraction. Performance on the MMSE 2 standard version was extremely low with a raw score of 20/30, which is a T score of 21 and percentile rank of less than 1. She was 1/5 for serial sevens, 2/2 for naming, 1/1 for repetition, 3/3 for auditory comprehension. She could read and follow a single command. The patient was unable to write a sentence or copy a simple geometric design. The patient was unable to draw a clock hands or set the hands at a designated time. Numbers were reversed on clock drawing. DIAGNOSTIC IMPRESSION: Major neurocognitive disorder (dementia), unspecified, with decreased insight -- extent to be determined, likely in the moderate range. RECOMMENDATIONS: The patient is likely to require assistance in the management of medication, finances and nutrition. Lack of insight places her at increased safety risk. She does appear to have adequate family support at her home. Family should likely be informed of extent of her cognitive deficits, so that appropriate position and safety can be maintained. Compensatory strategies for immediate recall, attention and concentration along with executive functioning are suggested. Thank you very much for allowing me to provide the consultation on this patient. By: [id number] Claudio Arguello, PhD /nt
[~2020-11-20 13:47] MED LIST changes: +AUGMENTIN 875-1 EACH PO; +K-DUR 20 MEQ T20 MEQ PO; +LIDOPATCH1 EACH TRANSDERM; +METOPROLOL TART25 MG PO; +PERCOCET PO
[2020-11-20 22:10] VITALS: BP 121/79
--- NOTE | 2020-11-21 02:51 | NUR ---
TO ROOM 513 AT 2200. PATIENT IS ABLE TO PIVOT TRANSFER TO [facility] WITH GAIT BELT AND WALKER. TWICE REMINDED TO GET TO AND FROM BED ONLY WITH OUR ASSISTANCE. SHE SAYS SHE DOES NOT WANT TO BOTHER US, WHILE AT THE SAME TIME SHE IS AFRAID OF PUTTING TOO MUCH WEIGHT ON HER HIP. OUR RESPONSE IS TO PLEASE BOTHER US, AFTER ALL THAT IS WHAT WE ARE HERE FOR, AND WE CAN PHYICALLY ASSIST AND GIVE VERBAL CLUES TO GET TO THE COMMODE. IN HER DEFENSE, HER CARVALHO WAS JUST REMOVED AND SHE IS GETTING THE HANG OF HOLDING AND TIMING HER VOIDS AGAIN. LEFT HIP DRESSING IS DRY AND INTACT NAD COVERS SUHAS, PATIENT REASSURED THAT SUHAS ARE EASY AND PAINLESS TO REMOVE. STATES SHE WILL CALL SON AND INFORM HIM OF ROOM NUMBER SO THAT HE CAN BRING HER A FEW MORE CLOTHES INCLUDING SOCKS. PAIN IS 9/10 EVEN AFTER THE HYDROCODONE SHE ASKED FOR, I OOKED AND SAW THAT SHE WAS TAKING OXYCODONE DOWNSTAIRS, AND SHE AGREED TO TRY THAT FOR PAIN NEXT TIME SHE TAKES A PILL. LEFT WRIST SALINE LOCK INTACT.
[2020-11-21 05:50] LABS: HEMATOCRIT 30.8 % (37.0-47.0); MCHC 32.4 g/dL (28.0-37.0); MCV 92.6 fL (80.0-100.0); RBC 3.32 mil/uL (4.20-5.00); WBC 6.3 thou/uL (4.0-11.0)
[2020-11-21 05:55] LABS: CALCIUM 8.6 mg/dL (8.5-10.1); CREATININE 0.5 mg/dL (0.6-1.0); POTASSIUM 4.8 mmol/L (3.5-5.1)
[2020-11-21 07:15] VITALS: BP 114/79
--- NOTE | 2020-11-21 12:04 | NUR ---
chart review. unable to visit with her rt out of room, working with therapy. cm noted that prior to hospital she live with her sister and her family. has walker, had fall in past. will cont following as needed for dc needs.
--- NOTE | 2020-11-21 12:26 | NUR ---
ASSUMED CARE AT 0700. PT DID NOT SLEEP WELL LAST NIGHT. SHE WAS TRANSFERRED FROM ACUTE CARE AFTER 11PM AND DID NOT SLEEP UNTIL AFTER 1AM. SHE WAS ALSO GETTING UP FREQ TO USE THE BSC TO VOID. PAIN IS NOT CONTROLLED. WAS GIVEN OXYCODONE THIS MORNING WITH NO RELIEF OT WAS WORKING WITH HER. APPETITE REALLY POOR AND ONLY DRANK 1/2 OF CARTON OF MILK. PT IS ALERT AND ORIENTATED AND EMACIATED WITH HER STANDING WEIGHT AT 79.9 LBS. HOSPICE EXECUTIVE DIRECTOR SPOKE TO PT AND MADE DIETARY CHANGES AND PREFERENCE WITH PT. THERAPY LIMITED DUE TO HER PAIN. STILL REPORTS PAIN AFTER HER OXYCODONE AND LIDOCAINE PATCH. CONCERNS ADDRESSED TO FLETCHER BANSAL AND DR MORALES REGARDING PAIN AND NAUSEA.
[2020-11-21 20:00] VITALS: BP 95/66
--- NOTE | 2020-11-22 02:43 | NUR ---
assumed care approx 1900 evening 11/21. pt lying in bed at change of shift sleeping. pt awoke to take hs meds with water and applesauce tolerating well. pt assisted up to bsc to void several times this night. pt appears to be sleeping soundly between bsc assists. bed alarm on and call light in reach. will continue to monitor.
[2020-11-22 07:29] VITALS: BP 118/64
--- NOTE | 2020-11-22 11:01 | NUR ---
ASSUMED CARE AT 0700. SLEPT FAIR. ALERT AND ORIENTATED TO SELF, PLACE AND SITUATION. TYLENOL GIVEN EARLIER TODAY AND PAIN IS WELL CONTROLLED. SHE IS IN MORE PLEASANT MOOD TODAY AND ATE 35% OF HER BREAKFAST TODAY AND DRANK 100% OF HER SUPPLEMENT. SHE REPORTED HAVING PAIN AFTER THERAPY AND PAIN IS WORST ON HER RIGHT SIDE. MEDICATED WITH OXYCODONE WITH NOT MUCH RELIEF. NOTED HER BEING TACHYCARDIA WITH HR IN THE 110S AT REST 150S WITH ACTIVITY, PT IS ASYMTOMATIC, NOEL EDITING COMPUTER PUBLISHER NOTIFIED. PT NEEDS LOTS OF CUIENG WITH INCREASING FLUID INTAKE AND TO EAT. EDUCATION GIVEN ON PAIN CONTROL, ENDURANCE AND TO PREVENT DEHYDRATION WHICH CAN ALSO CAUSE HER TO BE TACHY AND HYPOTENSIVE.
[2020-11-22 20:00] VITALS: BP 135/87
--- NOTE | 2020-11-23 02:23 | NUR ---
assumed care approx 1900 evening 11/22. pt lying in bed with head of bed elevated at change of shift. pt dozing off and on. pt stated she was tired from therapy. pt took hs meds with water tolerating well. pt up to bsc with 1 assist to void. pt appears to be sleeping soundly off and on. bed alarm on and call light in reach. will continue to monitor.
[2020-11-23 07:36] VITALS: BP 130/80
--- NOTE | 2020-11-23 08:16 | NUR ---
ASSUMED CARE AT 0700. PATIENT IS A &0 X3. PATIENT HAS LEFT HIP DRESSING THAT IS DRY AND INTACT. VVS. PATIENT IS UP WITH ONE STAFF AND GAIT BELT, STAND, PIVOT, TOE TOUCH WEIGHT BEARING. UP IN THE CHAIR FOR BREAKFAST. PATIENT CONTINUES ON PO ABT. NO ADVERSE AFFECTS NOTED. CONTINUES TO PROGRESS TOWARDS D/C GOALS. C/O LEFT HIP PAIN. MEDICATED WITH PRN PAIN MEDS. WILL CONTINUE TO MONITER.
[2020-11-23 19:21] VITALS: BP 140/85
--- NOTE | 2020-11-24 02:38 | NUR ---
TURNING SELF IN BED, MOST OF THE TIME TO THE RIGHT. AVOIDS BEARING WEIGHT ON LEFT LEG WHEN UP TO [facility] WITH ONE PERSON STAND PIVOT. STATES THAT SHE ATE MUCH SHE COULD TODAY, THAT SHE STOPPED EATING WHENEVER SHE BECAME NAUSEATED. REQUESTED PERCOCET AT , AND SHE HAS RESTED WELL, VOIDING EVERY 3-4 HOURS CONTINENTLY
[2020-11-24 07:45] VITALS: BP 133/84
--- NOTE | 2020-11-24 10:35 | NUR ---
ASSUMED CARE OF PT AT 0715. PT IS A&OX4. IS ON ROOM AIR. IS STABLE. REPORTED PAIN THIS AM IN LEFT HIP 03/15 THAT IS BEING MANAGED WITH PAIN MEDS & OTHER THERAPUETIC TECHNIQUES. SUHAS INTACT. PT IS TOE TOUCH WT BEARING. PT IS UP WITH 1 ASSIST, GB, WALKER STAND PIVOT TO BSC. FALL PRECAUTIONS & HOURLY ROUNDING CONTINUED THIS SHIFT. LABS & VITALS REVIEWED. WILL CONTINUE TO MONITOR. CALL LIGHT WITHIN REACH. PT IS ABLE TO REPOSITION SELF IN BED.
[2020-11-24 11:16] LABS: ABSOLUTE NEUTROPHILS 8.3 thou/uL (1.4-8.2); BASOPHILS 0.5 % (0.0-2.0); EOSINOPHILS 0.7 % (0.0-3.0); HEMATOCRIT 28.3 % (37.0-47.0); HEMOGLOBIN 9.4 gm/dL (12.0-15.0); LYMPHOCYTES 12.3 % (24.0-44.0); MCH 29.7 pg (26.0-34.0); MCHC 33.4 g/dL (28.0-37.0); MCV 89.1 fL (80.0-100.0); MONOCYTES 8.1 % (1.0-8.0); PLATELET COUNT 280 thou/uL (150-400); POLYS 78.4 % (36.0-66.0); RBC 3.17 mil/uL (4.20-5.00); RDW 14.7 % (10.5-14.5); WBC 10.6 thou/uL (4.0-11.0)
[2020-11-24 11:28] LABS: ALBUMIN 1.9 g/dL (3.4-5.0); CALCIUM 8.9 mg/dL (8.5-10.1); CREATININE 0.6 mg/dL (0.6-1.0); MAGNESIUM 1.8 mg/dL (1.8-2.4); POTASSIUM 3.5 mmol/L (3.5-5.1); TOTAL BILIRUBIN 0.3 mg/dL (0.2-1.0); TOTAL PROTEIN 6.2 g/dL (6.4-8.2)
[2020-11-24 19:35] VITALS: BP 140/90
--- NOTE | 2020-11-25 00:57 | NUR ---
TOLERATING PAIN 03/15, TAKING PERCOCET AT HS WITH INTENT TO HAVE IT HELP HER SLEEP. HAS BEEN ASLEEP SINCE 11 PM. USES BSC WITH GAIT BELT AND ASSIST OF ONE. PLEASANT AND ABLE TO TAKE PILLS SLOWLY ONE AT A TIME WITH WATER, STRUGGLING ONLY WITH THE CARAFATE IT DISSOLVES IN THE BACK OF HER THROAT. DECLINING FOOD AND SUPPLEMENTS TONIGHT
[2020-11-25 08:00] VITALS: BP 105/77
--- NOTE | 2020-11-25 10:16 | NUR ---
Pt has not been eating well for > 1 week. average of about 300 mandeep per day and 11 g protein. C/O diarrhea. Severe wt loss. May need to consider nutrition support due to severe protein calorie malnutrition.
--- NOTE | 2020-11-25 11:45 | NUR ---
ASSUMED CARE AT 0700. DID NOT SLEEP WELL. COMPLAINED OF NAUSEA AND ABDOMINAL PAIN AND CRAMPING. HAD SEVERAL LOOSE/DIARRHEA YESTERDAY AND TODAY. SHE RECENTLY WAS ON ORAL AUGMENTIN. BOWEL SOUNDS PRESENT. APPETITE IS POOR. PT NEEDS FREQ CUING TO EAT/DRINK. SHE REPORTED SHE CANNOT EAT AND CAUSES HER TO FEEL NAUSEATED AND HAVING DIARRHEA WITH MEALS. SHE ALSO REFUSED THERAPY BOTH PT AND OT TODAY. NOEL SUGAR GRINDER NOTIFIED, ORDERS FOR CT SCAN ABDOMEN TODAY TO RULE OUT SBO PAST HX OF SBO. L HIP DRESSING CHANGED AND SUHAS INTACT WITH NO SIGN OF INFLAMMATION/REDNESS. UP WITH GAIT BELT WITH TTWB TO Zhane ALEMAN.
--- NOTE | 2020-11-25 16:12 | NUR ---
asaelg passed on message that they are following in case she needs skilled rehab.
[2020-11-25 19:40] VITALS: BP 120/70
--- NOTE | 2020-11-26 02:40 | NUR ---
PT CARE ASSUMED WITH PT IN BED .PT IS A/O X4.PT IS UP WITH X1 ASSIST TO BEDSIDE COMMODE AND TOE TOUCH WEIGHT BEARING.PT C/O PAIN AND PAIN MANAGED WITH SCHEDULED TYLENOL AND OXYCODONE.PT TAKE MEDS WHOLE WITH NO ISSUES.WILL CONTINUE TO MONITOR PER POC
[2020-11-26 08:41] VITALS: BP 88/58
[2020-11-26 10:03] VITALS: BP 108/74
--- NOTE | 2020-11-26 10:08 | NUR ---
ASSUMED CARE AT 0700. PT SLEPT FAIR. GOT UP SEVERAL TIMES TO HAVE A BM. THIS MORNING PT SEEMS IN A BETTER SPIRIT AND REPORTED, "I FEEL MUCH BETTER TODAY". DENIES ANY STOMACH DISCOMFORT OR CRAMPING OR ANY POST SURGICAL PAIN. DENIES ANY NAUSEA OR VOMITTING. NO SIGN OF ABDOMINAL GUARDING, PT NOT APPEARED TO BE IN ANY DISTRESS CURRENTLY. SITTING UP WATCHING THE TV. BP THIS MORNING WAS 88/58 HR 102 RR 16 SAT 100% ON RA. DENIES ANY LIGHTHEADEDNESS OR SHORT OF AIR BP RECHECKED 108/74 HR 105, RR 16 SAT 95% ON ROOM AIR. CT SCAN ABDOMEN REVIEWED BY NOEL BANSAL, TO KEEP PT NPO NOW AND TO CONSULT SURGERY STAT. CALLED PUT IN FOR CONSULT WITH NO CALL BACK YET. LUNGS CLEAR, BOWEL SOUND HYPERACTIVE IN LQ AND HYPOACTIVE IN UQ. SHE HAS HAD COUPLE OF LOOSE BLACK STOOLS TODAY. PERIPHERAL IV STARTED ON R FA AND KEPT SALINE LOCKED. PT NOTIFIED TO BE NPO STARTING NOW AND WILL BE TRANSFERRED TO [facility] TODAY. SPOKE TO [facility], BED AVAILABLE AT 4 W. CALLED TO GIVE REPORT, RN WILL CALL BACK WHEN AVAILABLE.
[2020-11-26] MEDS ORDERED: MEGESTROL ACETA40 MG PO (10:58)
--- NOTE | 2020-11-26 15:05 | PLAN ---
[facility] [place] [address] REHAB UNIT PLAN OF CARE Name: SUNNI CERDA Room #: 513-P DIS IN M.R.#: [id number] Admission: 11/20/20 Attend Phys: Keith Godwin MD Discharge: 11/26/20 Date of : 50 Report #: [id number] THIS REPORT FOR: cc: José Wray Steve T. DO Smithson, David G. MD ~ DATE OF SERVICE: 11/22/2020 PROGRESS NOTE/OVERALL PLAN OF CARE SUBJECTIVE: The patient is seen back today in followup. I agree with the progress note as noted. We are trying to encourage her to eat. She is on a calorie count. She is very thin and cachectic. Her temperature is 36.9, pulse 98, respirations 18, blood pressure 118/64. No focal calf swelling. She is pleasant. Transfers are mod assist with gait, mod assist 3 feet with the parallel bars. She has limited as she is toe-touch weightbearing on that left lower extremity. Upper body dressing is min assist with lower body dressing mod assist. Speech therapy is following as well with cognition mod assist and memory mod assist. ASSESSMENT: 1. Toxic metabolic encephalopathy. 2. Left hip intertrochanteric fracture, status post IM nailing, 11/11/2020. Toe-touch weight-bearing. 3. Obstructive colitis. 4. Recurrent falls. 5. Hypokalemia. 6. Escherichia coli urinary tract infection. 7. Spinal stenosis, chronic pain, fibromyalgia. 8. Anxiety. 9. Recent colitis/mesenteric ischemia. 10. Severe protein-calorie malnutrition. PLAN: We have dietary following with a calorie count as well as Gastroenterology. Her hemoglobin is stable. The overall plan of care is based on the preadmission screen and information garnered from therapy assessments. 1. Estimated length of stay is probably 14-21 days. 2. Medical prognosis is reasonably good. 3. Anticipated interventions includes the interdisciplinary acute inpatient rehabilitation program. 4. Anticipated functional outcomes would be for the patient to become modified independent with transfers, mobility, ADLs and cognition, so that she can return back to the home setting. [facility] [address] [place] [address] REHAB UNIT PLAN OF CARE Name: SUNNI CERDA LIZZETTE Room #: 513-P [facility] IN M.R.#: [id number] Admission: 11/20/20 Attend Phys: Keith Godwin MD Discharge: 11/26/20 Date of : 50 Report #: [id number] 5. Discharge destination would be back home with her sister and her sons. 6. Expected therapy by discipline includes PT, OT and speech 1 hour per day each five days a week throughout the duration of the acute inpatient rehabilitation stay. The patient's prognosis for significant practical improvement within a reasonable period of time appears good. Given the patient's complex medical condition and risk of further medical complication, rehabilitation services could not be safely provided at a lower level of care such as a penitentiary facility. <ELECTRONICALLY SIGNED> By: Keith Godwin MD 11/26/20 1505 [id number] Keith Godwin MD /[facility]
== END 2020-11-26 11:08 | disposition short-term general hospital (02) | DRG 91 ==
PROVIDERS: Internal Medicine; ADMIT Physical Medicine & Rehabilitation; ATTEND Physical Medicine & Rehabilitation
DX: G92 Toxic encephalopathy (principal); S72.142A Displaced intertrochanteric fracture of left femur, initial encounter for closed fracture; E43 Unspecified severe protein-calorie malnutrition; N39.0 Urinary tract infection, site not specified; Z68.1 Body mass index [BMI] 19.9 or less, adult; K55.9 Vascular disorder of intestine, unspecified; R53.81 Other malaise; W18.39XA Other fall on same level, initial encounter; K52.89 Other specified noninfective gastroenteritis and colitis; R29.6 Repeated falls; E87.6 Hypokalemia; B96.20 Unspecified Escherichia coli [E. coli] as the cause of diseases classified elsewhere; F41.9 Anxiety disorder, unspecified; F32.9 Major depressive disorder, single episode, unspecified; M79.7 Fibromyalgia; M32.9 Systemic lupus erythematosus, unspecified; M06.9 Rheumatoid arthritis, unspecified; F01.50 Vascular dementia, unspecified severity, without behavioral disturbance, psychotic disturbance, mood disturbance, and anxiety; G89.4 Chronic pain syndrome; E83.42 Hypomagnesemia; Y93.89 Activity, other specified; Y92.89 Other specified places as the place of occurrence of the external cause; Y99.8 Other external cause status; Z79.891 Long term (current) use of opiate analgesic; Z87.891 Personal history of nicotine dependence
CPT/HCPCS: 10112

== ENCOUNTER 2020-11-26 10:52 | Inpatient (IN) | payer OTHER ==
[~2020-11-26] VITALS: Ht 157.5 cm; Wt 35.0 kg
[2020-11-26] MEDS ORDERED: MEGESTROL ACETA40 MG PO (10:58)
[2020-11-26 12:13] LABS: ABSOLUTE NEUTROPHILS 6.9 thou/uL (1.4-8.2); BASOPHILS 0.4 % (0.0-2.0); EOSINOPHILS 0.8 % (0.0-3.0); HEMATOCRIT 25.7 % (37.0-47.0); HEMOGLOBIN 8.4 gm/dL (12.0-15.0); MCH 29.1 pg (26.0-34.0); MCHC 32.8 g/dL (28.0-37.0); MCV 88.8 fL (80.0-100.0); MONOCYTES 7.7 % (1.0-8.0); PLATELET COUNT 316 thou/uL (150-400); POLYS 76.1 % (36.0-66.0); WBC 9.1 thou/uL (4.0-11.0)
[2020-11-26 12:31] LABS: ALBUMIN 1.9 g/dL (3.4-5.0); CALCIUM 8.7 mg/dL (8.5-10.1); CREATININE 0.5 mg/dL (0.6-1.0); MAGNESIUM 1.6 mg/dL (1.8-2.4); POTASSIUM 4.3 mmol/L (3.5-5.1); TOTAL BILIRUBIN 0.4 mg/dL (0.2-1.0); TOTAL PROTEIN 5.8 g/dL (6.4-8.2)
--- NOTE | 2020-11-26 12:42 | NUR ---
cm notified that pt had low bp, dc to acute 4w rt possible bowel obj and possible mass.
--- NOTE | 2020-11-26 14:43 | NUR ---
PATIENT ARRIVED TO UNIT AT APPROX 1105. VSS. C/O PAIN 06/15 ON L HIP. PROVIDER NOTIFIED OF PATIENT TRANFER/ADMISSION. IV ON R FA INFUSING NS @ 75 W NO ISSUES. PATIENT COMFORTANLE, VOICING NO NEEDS AFTER PAIN MED ADMINISTERED. NPO FOR POSSIBLE PROCEDURE. CONSULTS CALLED. FALL PRECAUTIONS IN PLACE; PATIENT SBA BUT CALLS NEEDED. WILL CONTINUE TO [id number]
--- NOTE | 2020-11-26 15:26 | NUR ---
Nutrition: pt with severe malnutrition and hx poor intake, wasting, BMI 14. Now NPO with surgery consult. REC consider change IVFs to Clinimix PPN at 75 mL/hr with 250 mL 20% lipids daily or if central line access can be obtained, REC standard TPN at 60 mL/hr goal rate. Pt is high refeeding syndrome risk.
[2020-11-26 16:25] VITALS: BP 107/67
[2020-11-26 20:01] VITALS: BP 109/68
[2020-11-27 05:26] LABS: CALCIUM 8.5 mg/dL (8.5-10.1); CREATININE 0.5 mg/dL (0.6-1.0); MAGNESIUM 1.5 mg/dL (1.8-2.4)
[2020-11-27 05:55] LABS: HEMATOCRIT 26.8 % (37.0-47.0); HEMOGLOBIN 8.7 gm/dL (12.0-15.0); MCH 29.4 pg (26.0-34.0); MCHC 32.4 g/dL (28.0-37.0); MCV 90.6 fL (80.0-100.0); PLATELET COUNT 310 thou/uL (150-400); RBC 2.96 mil/uL (4.20-5.00); RDW 14.9 % (10.5-14.5); WBC 6.3 thou/uL (4.0-11.0)
[2020-11-27 07:07] VITALS: BP 114/69
[2020-11-27 09:25] LABS: MYELOCYTES 1 %
[2020-11-27 09:29] LABS: ANISOCYTOSIS 1+; METAMYELOCYTES 1 %
--- NOTE | 2020-11-27 10:24 | NUR ---
DR. ARAUJO ROUNDED AND SPOKE AT BEDSIDE WITH PT ABOUT POTENTIAL FOR SURGERY TOMORROW OR AFTER TO REMOVE COLON AND PLACE AN OSTOMY. PT WAS GIVEN A CHANCE TO ASK QUESTIONS. STATED IT WAS A BIG SURGERY AND THAT THE PATIENT SHOULD DISCUSS IT WITH HER FAMILY. PT STATES SHE WANTS HER SON TO BE HER HUMAN RESOURCES MGR. HIS NAME IS LAW AGARWAL, .
--- NOTE | 2020-11-27 11:12 | NUR ---
DR. ARAUJO REQUESTED OSTOMY NURSE GEORGI COME IN AND DO OSTOMY MARKINGS ON PATIENT. RN SPOKE WITH GEORGI IN REEVES AND GEORGI STATES SHE WILL BE IN TO SEE PATIENT.
--- NOTE | 2020-11-27 11:24 | NUR ---
OSTOMY CONSULT; AWAKE, ALERT, VERY RECEPTIVE TO OSTOMY EDUCATION, STATES SHE LIVES W/ SON AND SISTER WHO IS A RETIRED RN, QUESTIONS ANSWERED REGARDING OSTOMY CARE AND MANAGEMENT, TEACHING INFO LEFT AT BS, STOMA SITE MARKED W/ 'X' BILAT LOWER ABD FREE OF FOLDS, AND BELOW NAVEL PT STATES SHE WEARS PANTS ABOVE NAVEL. 'X' COVERED W/ TRANSPARENT DRSG, WILL FOLLOW STAFF AWARE
--- NOTE | 2020-11-27 14:27 | NUR ---
PT ADMITTED RELATED TO RECURRENT BOWEL OBSTRUCTION. CM REVIEWED CHART AND SPOKE WITH CARE TEAM. CM MET WITH PT AT BEDSIDE THIS DAY. PT APPEARED TO BE A&O X4. CM ROLE INTRODUCED. PT FAMILIAR TO CM FROM PREVIOUS ADMISSION. PT HAD BEEN ON 5N AND RETURNED TO MED SURG. 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 PT HAS DME FOR HOME USE. PT IS OK WITH 5N FOLLOWING FOR POSSIBLE READMISSION IF NEEDED ONCE MEDICALLY STABLE. PT TO HAVE SUBTOTAL COLECTOMY WITH END ILEOSTOMY TOMORROW. CM FOLLOWING REGARDING DC PLANNING.
[2020-11-27 17:02] VITALS: BP 123/82
[2020-11-27 19:21] VITALS: BP 135/80
--- NOTE | 2020-11-27 20:13 | NUR ---
PT WAS GIVEN PO TYLENOL FOR HEADACHE AND IV MORPHINE FOR HIP PAIN. PT STATES PARTIAL RELIEF TO MEDICATIONS. PT HAD RECENT L HIP SURGERY FROM FALL AND BREAK AND HAS SHUAS PRESENT TO LEFT HIP. FALL PRECAUTIONS IN PLACE.
[2020-11-28 05:50] LABS: CALCIUM 7.9 mg/dL (8.5-10.1); CREATININE 0.4 mg/dL (0.6-1.0); POTASSIUM 3.3 mmol/L (3.5-5.1)
--- NOTE | 2020-11-28 06:00 | NUR ---
Pt. rested quietly at intervals during the night when checked on during frequent rounds. She was given pain meds for some sacral pain (see emar) with relief noted. Up to the bedside comode with assistance of one. Bed alarm is on.
[2020-11-28 06:04] LABS: HEMATOCRIT 21.9 % (37.0-47.0); HEMOGLOBIN 7.3 gm/dL (12.0-15.0); MCH 29.9 pg (26.0-34.0); MCHC 33.4 g/dL (28.0-37.0); MCV 89.5 fL (80.0-100.0); RBC 2.44 mil/uL (4.20-5.00); RDW 14.9 % (10.5-14.5); WBC 6.2 thou/uL (4.0-11.0)
--- NOTE | 2020-11-28 08:30 | NUR ---
ASSUMED PT CARE AT 0700. DR PEACE ROUNDED THIS MORNING WITH PATIENT. PT WILL BE RECEIVING A UNIT OF RBCS BEFORE SURGERY. PT REFUSED IV POTASSIUM. ASSESSMENT PERFORMED AND CHARTED. WILL CONTINUE TO MONITOR PT.
[2020-11-28 08:42] VITALS: BP 123/77
--- NOTE | 2020-11-28 09:27 | NUR ---
LEFT BPCI LETTER WITH PATIENT, HAS ONE ON CHART WELL. ALERTED NURSING ONE ON CHART WHEN SHE DISCHARGES
[2020-11-28 10:12] VITALS: BP 128/85
[2020-11-28 10:26] VITALS: BP 132/86
--- NOTE | 2020-11-28 10:35 | NUR ---
transfusion started. will continue to monitor pt.
--- NOTE | 2020-11-28 12:01 | NUR ---
PT ROUNDS UPDATE: PT HAD BLOOD TRANSFUSION AND SX SCHED FOR TODAY. [facility] CONSULT.
--- NOTE | 2020-11-28 16:17 | NUR ---
nikki called to inform cm they will cont to follow pt as she just had sx today. pt/ot to eval.
[2020-11-28 19:39] VITALS: BP 146/91
[2020-11-29 00:07] VITALS: BP 121/73
--- NOTE | 2020-11-29 04:33 | NUR ---
Pt. rested quietly during the night when checked on during frequent rounds. She is alert and oriented, but forgetful. Pt. educated several times on how to use supervisor orchard pain pump, but will not use it. When rounding on pt. she would c/o some abdominal pain, but would not push supervisor orchard pain button until this nurse instructed her on how to push it. PO pain meds given also (see emar). Mid- line incision is intact. Colostomy bag is a little loose as it is covering her incision with rita. No leakage. Bed alarm is on.
[2020-11-29 04:54] LABS: HEMATOCRIT 28.8 % (37.0-47.0); MCH 28.9 pg (26.0-34.0); MCHC 32.2 g/dL (28.0-37.0); MCV 89.7 fL (80.0-100.0); RBC 3.21 mil/uL (4.20-5.00); RDW 14.5 % (10.5-14.5); WBC 17.5 thou/uL (4.0-11.0)
[2020-11-29 04:55] LABS: HEMOGLOBIN 9.3 gm/dL (12.0-15.0)
[2020-11-29 05:18] LABS: ALBUMIN 1.6 g/dL (3.4-5.0); CREATININE 0.4 mg/dL (0.6-1.0); MAGNESIUM 1.6 mg/dL (1.8-2.4); PHOSPHORUS 3.9 mg/dL (2.5-4.9); POTASSIUM 3.6 mmol/L (3.5-5.1)
[2020-11-29 08:47] VITALS: BP 138/88
--- NOTE | 2020-11-29 10:54 | NUR ---
Note Given: Y Facility List Provided:Y Facility Duthc: None chosen at this time Macy Vega NP discussed BPCI with this pt 11/27/2020
--- NOTE | 2020-11-29 12:28 | NUR ---
no weekend dc anticipated. patient to be evaled by therapy and [facility]. rec consult for ostomy supplies. Sp with Gavi Burris machine sand mixer she has given patient supplies and information.
--- NOTE | 2020-11-29 15:09 | NUR ---
Nutrition: REC change IVFs to Clinimix PPN with 250 mL 20% daily lipids to prevent further nutritional decline til po trends established post surgery. RECommend consider re-initiation of Megace and obtain standing scale weights QOD.
[2020-11-29 15:30] VITALS: BP 132/88
[2020-11-29 20:05] VITALS: BP 119/75
--- NOTE | 2020-11-29 21:11 | NUR ---
PT A&OX4, FORGETFUL, VSS, ABDOMENAL PAIN. PATIENT ILLEOSTOMY CHANGED, DARK LIQUID STOOL OUTPUT. MIDLINE SURGICAL INCISION WITH DERMABOND AND SUHAS, C/D/I. PATIENT HAS SUHAS LEFT HIP WITH DRESSING C/D/I. HAND CANDY DIPPER PUMP DISCONTINUED. PATIENT ROOM AIR, NO SIGNS OF DISTRESS. IV RIGHT AC AND RIGHT WRIST PATENT, CARVALHO PATENT. WILL CONTINUE TO MONITOR.
--- NOTE | 2020-11-30 04:48 | NUR ---
PATIENT UPSET ARTIFICIAL BREEDING DISTRIBUTOR PAIN PUMP DC AND NOT ON HOME PAIN MEDICATIONS. STATES NOTHING ELSE WORKS. 0120 VANCE WING MAILER MACHINE OPERATOR NOTIFIED AND ORDERS FOR HOME PAIN MEDS. ORDERS RECIEVED AND MEDICATION GIVEN. 0225 SLEEPING WITHOUT COMPLAINTS 0430 SLEEPING AT PRESENT TIME WITHOUT COMPLAINTS OF PAIN. ILEOSTOMY CHANGED EARLIER DUE TO LEAKAGE. CONTINUE TO ASSES CLOSELY. TURNS SELF IN BED. WORKING ON GOALS AND PLAN OF CARE FOR NOC.
[2020-11-30 10:40] LABS: ABSOLUTE NEUTROPHILS 4.5 thou/uL (1.4-8.2); BASOPHILS 0.6 % (0.0-2.0); EOSINOPHILS 0.7 % (0.0-3.0); HEMATOCRIT 27.6 % (37.0-47.0); HEMOGLOBIN 8.9 gm/dL (12.0-15.0); LYMPHOCYTES 18.7 % (24.0-44.0); MCH 29.3 pg (26.0-34.0); MCHC 32.2 g/dL (28.0-37.0); MCV 90.9 fL (80.0-100.0); PLATELET COUNT 265 thou/uL (150-400); RBC 3.04 mil/uL (4.20-5.00); RDW 14.8 % (10.5-14.5); WBC 6.1 thou/uL (4.0-11.0)
[2020-11-30 10:56] LABS: ALBUMIN 1.5 g/dL (3.4-5.0); CALCIUM 7.5 mg/dL (8.5-10.1); CREATININE 0.4 mg/dL (0.6-1.0); MAGNESIUM 1.5 mg/dL (1.8-2.4); POTASSIUM 3.2 mmol/L (3.5-5.1); TOTAL BILIRUBIN 0.2 mg/dL (0.2-1.0); TOTAL PROTEIN 4.1 g/dL (6.4-8.2)
[2020-11-30 18:03] VITALS: BP 120/44
[2020-11-30 18:19] VITALS: BP 172/113
--- NOTE | 2020-11-30 18:30 | NUR ---
PT ASSESSED AT START OF SHIFT. PT C/O OF ABD PAIN AND PREFERS HER HOME PAIN PILLS THEY WORK LONGER. TAKING FULL LIQUID DIET W/O NAUSEA. HAVING WATERY BROWN STOOLS FROM ILLEOSTOMY. GOOD URINE OUTPUT. ABD INCISION INTACT W/ SUHAS.
[2020-11-30 20:59] VITALS: BP 140/92
[2020-12-01 05:07] LABS: ABSOLUTE NEUTROPHILS 6.9 thou/uL (1.4-8.2); BASOPHILS 0.5 % (0.0-2.0); EOSINOPHILS 1.3 % (0.0-3.0); HEMATOCRIT 30.4 % (37.0-47.0); HEMOGLOBIN 9.8 gm/dL (12.0-15.0); LYMPHOCYTES 18.2 % (24.0-44.0); MCH 29.3 pg (26.0-34.0); MCHC 32.4 g/dL (28.0-37.0); MCV 90.4 fL (80.0-100.0); MONOCYTES 5.3 % (1.0-8.0); PLATELET COUNT 283 thou/uL (150-400); POLYS 74.7 % (36.0-66.0); RBC 3.36 mil/uL (4.20-5.00); RDW 14.9 % (10.5-14.5); WBC 9.2 thou/uL (4.0-11.0)
[2020-12-01 05:31] LABS: CALCIUM 7.9 mg/dL (8.5-10.1); CREATININE 0.4 mg/dL (0.6-1.0); MAGNESIUM 1.5 mg/dL (1.8-2.4); PHOSPHORUS 3.5 mg/dL (2.5-4.9); POTASSIUM 3.3 mmol/L (3.5-5.1)
--- NOTE | 2020-12-01 08:23 | NUR ---
PT LYING IN BED. LORTAB PROVIDING PAIN RELIEF. DENIES NAUSEA. ILEOSTOMY BAG LEAKING--CHANGED. RESTING COMFORTABLY. NO NEEDS VOICED. CALL LIGHT WITHIN REACH. FREQUENT OBSERVATION.
[2020-12-01 08:41] VITALS: BP 122/71
[2020-12-01 16:02] VITALS: BP 118/79
--- NOTE | 2020-12-01 19:18 | NUR ---
PT A&OX4, VSS, PAIN IN ABDOMEN. PATIENT HAS MIDLINE INCISION WITH SUHAS, DRESSED WITH [employer] HOME TEACHING GRADES 9 THRU 12 TEACHER, C/D/I. SUHAS IN LEFT HIP. PATIENT REPOSITIONED OFTEN. PATIENT HAS NEW IV RIGHT UPPER ARM. CARVALHO AND ILLEOSTOMY INTACT AND PATENT. NO SIGNS OF DISTRESS, WILL CONTINUE TO MONITOR.
[2020-12-01 20:10] VITALS: BP 92/67
[2020-12-02] VITALS (8 sets, daily range): BP systolic 96–131; BP diastolic 62–92
--- NOTE | 2020-12-02 03:51 | NUR ---
ASSESSMENT DOCUMENTED.PT A/OX4.VSS.S/P SBO LAP W/HEMICOLECTOMY,S/P LEFT HIP IM NAILING.LEFT HIP W/CDI DRESSING.MID ABD INCISION DRESSING CDI.ILEOSTOMY W/SOFT BM.PT C/O PAIN TO ABDOMEN INCISION THAT IS CONTROLLED W/PRN MEDS.SLEPT MOST OF THE NOC.CARVALHO DD.NO FURTHER CONCERNS VOICED THIS AM.
--- NOTE | 2020-12-02 10:24 | NUR ---
OSTOMY CARE; AWAKE, ALERT, COOPERATIVE, VERY PLEASANT, VERY RECEPTIVE TO OSTOMY CARE AND EDUCATION, POUCH EDGES LOOSE, NEW POUCH ANJU 2 PIECE SYSTEM W/ ADAPT RING APPLIED, STOMA BUDDED VIABLE BEEFY RED, PERISTOMAL SKIN INTACT, LOOSE BROWN STOOL NOTED, MID LINE ABD SUTURE LINE INTACT W/ SUHAS, HEALING, WELL APPROXIMATED, NO REDDNESS, NO DRAINAGE, TELFA DRSG APPLIED OVER INCISION, SUPPLIES AT , WILL ENROLL PT IN [employer] SECURE START PROGRAM FOR TRIAL SUPPLIES TO BE SENT TO HOME RECOMMENDATIONS; CHANGE POUCH Q 3-5 DAYS AND PRN, EMPTY PRN BOOKSTORE CLERK AWARE
--- NOTE | 2020-12-02 12:37 | NUR ---
rounds poc update: pt diet advanced today. poss d/c to 5N tomorrow.
--- NOTE | 2020-12-02 16:32 | NUR ---
Assumed pt care at 7am.Pt in bed resting. Assessment completed.vss.Pt c/o abdominal pain.Morphine ivp given with partial relief.Dr Manning and Erin here,order noted.Pt tolerated full liq and diet advance to regular per order. Pt ambulated in hallways with fair endurance.Family here to visit,updates given.Pt left for abdominal xray later this afternoon.Hip rita will be remove before shift change today.Pt up in chair at present watching tv.Will continue to monitor.
--- NOTE | 2020-12-03 05:57 | NUR ---
Assumed pt care at 1900. Pt had a fall at shift change,Neuro checks WNL,pt moved to 460.VSS.C/o pain to left hip/abd medicated per EMAR with relief reported. HEARING SCREENER Mark notified about fall,adviced to continue monitoring pt and call as needed. Fall precautions in place,frequent checks on pt. Will continue to monitor pt. Dsg on mid abd intact with rita,ileostomy intact with liquid green stool;steri-strips in place left hip. Resting quietly at this time will continue to monitor pt.
[2020-12-03 08:00] VITALS: BP 124/84
--- NOTE | 2020-12-03 11:14 | NUR ---
CARE TEAM INDICATED THAT PT IS MEDICALLY STABLE TO DISHCARGE TO 5N THIS DAY. PT IS ON A DIET TOLERATED. COVID TEST ORDERED AND COLLECTED. ANTICIPATE DISCHARGE TO 5N LATER THIS AFTERNOON. PT AND FAMILY ARE AWARE AND AGREEABLE. NO OTHER CM INTERVENTION INDICATED. REPORT TO BE CALLED TO .
[2020-12-03] MEDS ORDERED: NEURONTIN 300M300 M2 PO (11:50)
[2020-12-03] MEDS ORDERED: NORCO 10-325 T1 EACH PO (11:50)
[2020-12-03] MEDS ORDERED: POTASSIUM20 PO (12:35)
--- NOTE | 2020-12-03 16:19 | NUR ---
Assumed pt care at 7am.Pt in bed resting and donovan=s out for needs as needed. Assessment completed.vss.Dr Manning here,order noted.Assisted pt with tray setup at all meals.Pt has poor appetite but only picks what to eat.Pt c/o abdominal and back pain.Oral meds given with partial relief.Fall bundle min place for pt safety.Recived call from rehab liason that pt will be transfer to rehab unit later this evening.Report given to Tanesha cameron.At 1625,pt dc per wc to rehab accompanied by unit sec.Pt sister notified about pt dc to rehab.
--- NOTE | 2020-12-05 10:53 | PATH ---
[facility] [address] [address] PATHOLOGY RPT PROCEDURE Name: TAYLOR CERDA LIZZETTE Room #: 460-P DIS IN M.R.#: [id number] Admission: 11/26/20 Date of : 50 Discharge: 12/03/20 Report #: [id number] Path Case #: [id number] LCA Accession Number: [id number] . 01 Material submitted: . colon - EXTENDED RIGHT HEMICOLECTOMY. Modifiers: right . 01 Clinical history: . RIGHT SUBTOTAL COLECTOMY (+++) EXPLORATORY LAPAROTOMY (+++) ILEOSTOMY (+++) LARGE BOWEL OBSTRUCTION RECURRENT BOWEL OBS . 02 Diagnosis: Terminal ileum, cecum and right colon, extended right hemicolectomy: - Ischemic colitis, multiple foci and patchy. - Extensive edema of the large intestine wall proximal to a stricture. - Appendix (remnant) showing extensive endometriosis. - Negative for dysplasia or malignancy. - Proximal and distal margins showing reactive changes. - Thirteen reactive lymph nodes. (IUV/db; 12/02/2020) LBQ 12/02/2020 1336 Local . 02 Electronically signed: . Lolly Solo MD, Pathologist NPI- [id number] . 01 Gross description: . Received in formalin labeled "Taylor Cerda, extended R hemicolectomy" is a specimen consisting of a portion of terminal ileum (5.0 x 2.7 cm), cecum (9.4 x 6.5 x 5.7 cm), and proximal colon (44.3 cm in length and ranging from 2.5-5.7 cm in diameter). There is a possible remnant portion of appendix measuring 0.7 x 0.7 x 0.6 cm. The proximal and distal margins are closed with staple lines. The serosa is nj-pink and smooth. The specimen is opened to reveal nj-brown unremarkable mucosa in the terminal ileum and nj-brown edematous mucosa throughout the cecum and proximal 75% of the proximal colon. There is a strictured area directly distal to the edematous mucosa measuring 1.7 cm in length, which has a luminal diameter of 0.5 cm. The mucosa distal to the stricture is nj-brown with unremarkable folding. No polyps, masses, perforations, or diverticula are grossly identified. Multiple palpable lymph nodes are identified within the mesenteric fat, ranging from 0.3-0.8 cm in greatest dimension. Oncology Transplant Network Manager sections are submitted as follows: A1 proximal margin A2 distal margin [address] [address] PATHOLOGY RPT PROCEDURE Name: TAYLOR CERDA LIZZETTE Room #: 460-P DIS IN M.R.#: [id number] Admission: 11/26/20 Date of : 50 Discharge: 12/03/20 Report #: [id number] Path Case #: [id number] A3 ileocecal valve A4 possible remnant appendix A5 quality audit representative cecal mucosa A6-A7 quality audit representative edematous proximal colon mucosa A8 cross section of strictured area A9 quality audit representative mucosa distal to strictured area A10-A11 palpable lymph nodes (SKC; 11/29/2020) SYC/SYC 11/29/2020 1621 Local . 02 Pathologist provided ICD-10: K52.9, N80.5 . 02 CPT . 654741 Specimen Comment: A courtesy copy of this report has been sent to [phone], [phone] Specimen Comment: [phone], Specimen Comment: Report sent to ,DR DUARTE / DR CUNNINGHAM Specimen Comment: A duplicate report has been generated due to demographic updates. Performed at: 01 [facility] [address], [place], [place] [id number] MD Luis Majano MD Phone: [phone] Performed at: [address] [facility] [address] [id number] MD Lolly Solo MD Phone: [phone]
== END 2020-12-03 16:32 | DRG 329 ==
LOC: 4W 10:52
PROVIDERS: Anesthesiology; Internal Medicine; Nurse Practitioner; Nurse Practitioner Family; Surgery; ADMIT Hospitalist; ATTEND Hospitalist
PROC: 0D1B0Z4 Bypass Ileum to Cutaneous, Open Approach (ICD-10-PCS; principal; 2020-11-28)
PROC: 0DTF0ZZ Resection of Right Large Intestine, Open Approach (ICD-10-PCS; principal; 2020-11-28)
PROC: 30233N1 Transfusion of Nonautologous Red Blood Cells into Peripheral Vein, Percutaneous Approach (ICD-10-PCS; principal; 2020-11-28)
DX: K56.601 Complete intestinal obstruction, unspecified as to cause (principal); E43 Unspecified severe protein-calorie malnutrition; G93.41 Metabolic encephalopathy; J96.90 Respiratory failure, unspecified, unspecified whether with hypoxia or hypercapnia; K55.059 Acute (reversible) ischemia of intestine, part and extent unspecified; K92.1 Melena; N39.0 Urinary tract infection, site not specified; K55.9 Vascular disorder of intestine, unspecified; I77.4 Celiac artery compression syndrome; R10.9 Unspecified abdominal pain; I10 Essential (primary) hypertension; M06.9 Rheumatoid arthritis, unspecified; G89.4 Chronic pain syndrome; F32.9 Major depressive disorder, single episode, unspecified; F41.9 Anxiety disorder, unspecified; M79.7 Fibromyalgia; K21.9 Gastro-esophageal reflux disease without esophagitis; M48.00 Spinal stenosis, site unspecified; J44.9 Chronic obstructive pulmonary disease, unspecified; B96.20 Unspecified Escherichia coli [E. coli] as the cause of diseases classified elsewhere; I70.1 Atherosclerosis of renal artery; R53.81 Other malaise; E83.42 Hypomagnesemia; E87.6 Hypokalemia; I73.9 Peripheral vascular disease, unspecified; E88.09 Other disorders of plasma-protein metabolism, not elsewhere classified; D50.9 Iron deficiency anemia, unspecified; M32.9 Systemic lupus erythematosus, unspecified; Z90.710 Acquired absence of both cervix and uterus; Z87.891 Personal history of nicotine dependence; Z79.891 Long term (current) use of opiate analgesic; Z87.81 Personal history of (healed) traumatic fracture; Z82.49 Family history of ischemic heart disease and other diseases of the circulatory system
CPT/HCPCS: 10047; 50010; 50093; 50101; 50386; 50455; 51391; 51412; 51708; 55075; 56525; 56529; 57092; 58637; 62110; 62900; 70005

== ENCOUNTER 2020-12-03 11:08 | Inpatient (IN) | payer OTHER ==
[~2020-12-03] VITALS: Ht 157.5 cm; Wt 34.0 kg
[~2020-12-03 11:08] MED LIST changes: +MEGESTROL ACETA40 MG PO
[2020-12-03] MEDS ORDERED: NEURONTIN 300M300 M2 PO (11:50)
[2020-12-03] MEDS ORDERED: NORCO 10-325 T1 EACH PO (11:50)
[2020-12-03] MEDS ORDERED: POTASSIUM20 PO (12:35)
--- NOTE | 2020-12-03 16:04 | NUR ---
chart review, she been on acute rehab prior to have to go back to acute hospital. prior to hospital, she lives with her sister, son and nephew. had some assist at home when needed. had falls in the past. dme, shower bench, bsc, w/c and walker. has 5 steps into house and 6 steps inside. will cont following as needed for dc needs.
[2020-12-03 16:34] VITALS: BP 110/75
--- NOTE | 2020-12-03 19:00 | NUR ---
PT ARRIVED TO UNIT THIS AFTERNOON, AND IS ALERT AND APPROPRIATE, BUT SLIGHTLY FORGETFUL. RECEIVED IN REPORT THAT PT FELL YESTERDAY, BUT PT DENIED THIS, STATING THAT SHE DID NOT FALL, SHE WAS REACHING FOR SOMETHING ON THE FLOOR AND WENT DOWN TO GET IT. NOTED TO PT THAT WE DID NOT WANT HER TO FALL, AND ALARMS ARE ON AT PRESENT TIME. PT DID STATE THAT SHE DOESN'T KNOW HOW TO CARE FOR THE COLOSTOMY YET, AND THIS WAS PASSED ON IN REPORT A NEED FOR EDUCATION. BEDSIDE SHIFT CHANGE REPORT GIVEN, AND PT RESTIN GIN BED WITH ALARM ON.
[2020-12-03 19:35] VITALS: BP 101/69
--- NOTE | 2020-12-04 01:41 | NUR ---
PATIENT TURNING HERSELF WITH REMINDERS WHEN AWAKE. 125 CC THICK BROWN LIQUID FROM ILEOSTOMY, PATIENT NOT ATTEMPTING SELF-CARE, BUT NOTICES THAT THIS IS THE FIRST TIME IT HAS NOT BEEN TOTALLY WATERY. TAKING NORCO EVERY 4 HOURS TO STAY AHEAD OF ABDOMINAL PAIN, WHICH IS WAY MORE THAN HIP PAIN AT THIS POINT. CARVALHO TO MIKE, YELLOW
[2020-12-04 05:38] LABS: HEMATOCRIT 31.3 % (37.0-47.0); HEMOGLOBIN 10.2 gm/dL (12.0-15.0); MCH 29.2 pg (26.0-34.0); MCHC 32.6 g/dL (28.0-37.0); MCV 89.8 fL (80.0-100.0); RBC 3.48 mil/uL (4.20-5.00); RDW 14.6 % (10.5-14.5); WBC 4.8 thou/uL (4.0-11.0)
[2020-12-04 05:52] LABS: ALBUMIN 1.5 g/dL (3.4-5.0); CALCIUM 8.4 mg/dL (8.5-10.1); CREATININE 0.4 mg/dL (0.6-1.0); MAGNESIUM 1.4 mg/dL (1.8-2.4); PHOSPHORUS 4.2 mg/dL (2.5-4.9); POTASSIUM 4.5 mmol/L (3.5-5.1)
--- NOTE | 2020-12-04 07:51 | NUR ---
ASSUMED CARE AT 0700. PATIENT IS ALERT AND ORIENTED X3. PATIENT WOMACK'S, LEFT HIP HAS STERI-STRIPS IN PLACE. PATIENT LUNGS ARE CLEAR AND DEMINISHED. ABD IS SOFT WITH BSX4. PATIENT HAS ILEOSTOMY. OSTOMY NURSE HERE TO CHANGE BAG. FALL AND SAFETY PROTOCOLS IN PLACE. PATIENT IS UP WITH ASSIST OF 1 STAFF AND GAIT BELT. C/O LEFT HIP PAIN. MEDICATED WITH PRN PAIN MED. CONTINUES TO PROGRESS SLOWLY TOWARDS D/C GOALS. WILL CONTINUE TO MONITER.
[2020-12-04 08:00] VITALS: BP 124/78
--- NOTE | 2020-12-04 08:55 | NUR ---
OSTOMY CARE; PT AWAKE, ALERT, PLEASANT, SOME FORGETFULNESS PRESENT, VERY RECEPTIVE TO OSTOMY CARE AND MANAGEMENT, ENCOURAGED TO PARTICIPATE IN OSTOMY CARE, POUCH INTACT BUT OUTER EDGES SOILED, CHANGED USING 2 PIECE SYSTEM ANJU, STOMA BEEFY RED, VIABLE, BUDDED W/ LOOSE BROWN STOOL, PERISTOMAL SKIN INTACT, MID LINE INCISION INTACT, WELL APPROXIMATED W/ SUHAS, HEALING, NO S/S INFECTION, TEFLA DRSG OVER INCISION FOR PROTECTION, TEACHING INFO AND SUPPLIES AT BS, WILL CONT TO FOLLOW RECOMMENDATIONS; CHANGE POUCH Q 3-5 DAYS AND PRN, EMTPY PRN EXHIBITOR SALES AWARE
[2020-12-04 19:39] VITALS: BP 115/79
--- NOTE | 2020-12-04 23:41 | NUR ---
PT ASSESSMENT COMPLETED AND VSS. MEDS GIVEN ORDERED AND WELL TOLERATED. FALL PRECAUTIONS IN PLACE. OSTOMY WITH LARGE AMOUNT OF THIN BROWN STOOL. CARVALHO DRAINING YELLOW URINE. ASST WITH REPOSITION FOR COMFORT. PT TALKED ABOUT HOW SICK SHE HAS BEEN AND SHARED HER FEELINGS. PROVIDED MUCH EMOTIONAL SUPPORT. PRN PAIN MEDICATION HELPFUL FOR SURGICAL PAIN. SLEEPING WELL AT THIS TIME. WILL CONTINUE TO MONITOR FREQUENTLY.
[2020-12-05 08:00] VITALS: BP 105/71
[2020-12-05 11:08] VITALS: BP 113/51
--- NOTE | 2020-12-05 13:45 | EKG ---
[place] [address] [facility] [address] [place] [address] ELECTROCARDIOGRAM REPORT Name: SUNNI CERDA LIZZETTE Room #: 505-P ADM IN M.R.#: [id number] Admission: 12/03/20 Attend Phys: Keith Godwin MD Discharge: Date of : 50 Report #: [id number] [facility] Test Date: 2020-12-05 Test Time: 11:18:58 Pat Name: SUNNI CERDA Department: Room: [facility] Gender: F Senior Tax Specialist: ABHIJIT : 1950 Requested By: Keith Godwin Order Number: [id number] MD: Neil Winkler Measurements Intervals [place] Rate: 102 P: 72 SC: 136 QRS: -15 QRSD: 95 T: 60 QT: 338 QTc: 441 Interpretive Statements Sinus tachycardia Anteroseptal infarct, age indeterminate Lateral leads are also involved Compared to ECG 11/08/2020 13:37:51 No significant changes Electronically Signed On 12-05-2020 13:45:09 CDT by Neil Winkler [email or web address] <ELECTRONICALLY SIGNED> By: Neil Winkler MD, [facility] 12/05/20 1345 1118 1118 Neil Winkler MD, [facility] /EPI
--- NOTE | 2020-12-05 18:03 | NUR ---
PT A&OX4, VSS, PAIN IN ABDOMEN/HIP/BACK. PATIENT HAS LOW APPETITE, ENCOURAGED TO DRINK FLUIDS. STERI STRIPS LEFT HIP INTACT, NO DRAINAGE. CARVALHO REMOVED TODAY. PATIENT HAS UNRINATED. ILEOSTOMY CARES COMPLETED. SUHAS DOWN ABDOMEN INCISION, NO DRAINAGE OBSERVED. PATIENT COMPLAINED OF CHEST PAIN THIS AM AFTER WHILE WORKING WITH PT, VSS, EKG ORDERED, NOTIFIED NURSE PRACTITIONER AND SIDE SEAM MACHINE OPERATOR. PATIENT SOA OF EXERTIONM, ROOM AIR, NO SIGNS OF DISTRESS. WILL CONTINUE TO MONITOR.
[2020-12-05 19:07] VITALS: BP 98/63
--- NOTE | 2020-12-06 01:53 | NUR ---
LEFT HIP INCISION INTACT WITH A FEW STERISTRIPS REMAINING. UP TO TOILET WITH WALKER TO VOID, ABLE TO EMPTY ILEOSTOMY WHILE SITTING ON TOILET. ASKING FOR HYDROCODONE Q 4 HOURS, PREFERS IT TO SCHEDULED TYLENOL. REPOSITIONING SELF IN BED WHEN AWAKE.
[2020-12-06 07:15] VITALS: BP 122/79
--- NOTE | 2020-12-06 07:24 | NUR ---
OSTOMY CARE; AWAKE, ALERT, PLEASANT, COOPERATIVE, POUCH EDGES LOOSE, CHANGED APPLIANCE W/ ANJU 2 PIECE SYSTEM CUT TO FIT, STOMA RED VIABLE, BUDDED, PERISTOMAL SKIN INTACT, LOOSE BROWN EFFLUENT NOTED, VERY RECEPTIVE TO OSTOMY EDUCATION, ABLE TO EMPTY POUCH PER NSG STAFF, ENCOURAGED TO CONT PARTICIPATION IN OSTOMY CARE, MID LINE INCISION C/D/I, SUHAS PRESENT, NO S/S INFECTION, TELFA DRSG APPLIED UNDER INCISION, SUPPLIES AND INFO AT BS RECOMMENDATIONS; CHANGE POUCH Q 3-5 DAYS AND PRN, EMPTY PRN PEOPLE MANAGER AWARE
--- NOTE | 2020-12-06 11:32 | NUR ---
Received awake on bed. Due medications given as prescribed, able to swallow meds w/o difficulty. On room air. Vital signs stable. On MS, not on telemetry; no complains of chest pain, crushing sensation and heaviness. Assisted in ADLs. On regular diet- tolerating well; no nausea; no vomiting and no abdominal pain noted; encouraged and assisted in eating and drinking. Continent of bladder, assisted in going to the toilet; able to use walker and gait belt; Falls bundle in place. With ileostomy in place- pt seen and examined by ostomy nurse this AM- output measured and recorded accordingly. With rita at abdomen- intact; no bleeding and drainage noted. S/P IM nailing on L hip- [address]. Complained of pain, due PRN PO meds given as prescribed, With SL at L hand. Falls bundle in place, may be impulsive at times. Pt seen and examined by ANIMAL SKINNER- ordered chest xray d/t SOA during exertion- brought down to xray via wheelchair, transferred safely. To continue monitoring patient.
[2020-12-06 19:09] VITALS: BP 130/71
--- NOTE | 2020-12-07 02:33 | NUR ---
assumed care approx 1900 evening 12/06. pt alert and oriented x4, pleasant and cooperative. pt up to bathroom with standby assist with walker. pt emptying ileostomy herself. pt given meds as ordered. pt appears to be sleeping soundly in between bathroom breaks. bed alarm on and call light in reach. will continue to monitor.
[2020-12-07 08:00] VITALS: BP 122/78
--- NOTE | 2020-12-07 10:22 | NUR ---
ASSUMED CARE AT 0700. PATIENT IS ALERT AND ORIENTED X4. PATIENT WOMACK'S, CHIEF CLOTH FINISHING RANGE OPERATOR ARE EQUAL. LUNGS ARE CLEAR AND DEMINISHED. ABD IS SOFT WITH BXX4. PATIENT HAS ILEOSTOMY RIGHT LOWER ABD. PATIENT CONTINUES TO HAVE BROWN LIQUID OUT OF ILEOSTOMY. UP TO THE BATHROOM TO VOID PARK COLORED URINE WITH ASSIST OF 1 STAFF AND GAIT BELT AND WALKER. PATIENT HAS S.L. IN HER LEFT HAND. PLAN IS TO D/C THE S.L. TODAY. FALL AND SAFETY PROTOCOLS IN PLACE. UP IN THE CHAIR FOR BREAKFAST. C/O LEFT HIP PAIN. MEDICATED WITH PRN PAIN MED. CONTINUES TO PROGRESS SLOWLY TOWARDS D/C GOALS. WILL CONTINUE TO MONITER.
[2020-12-07 20:00] VITALS: BP 116/72
--- NOTE | 2020-12-08 00:08 | NUR ---
PT ASSESSMENT COMPLETED AND VSS. MEDS GIVEN ORDERED AND WELL TOLERATED. FALL PRECUATIONS IN PLACE. OSTOMY WITH SMALL AMOUNT OF LIQUID STOOL OUT. PRN PAIN MEDICATION WORKING WELL. ASST WITH REPOSITION FOR COMFORT USING PILLOWS. Z GUARD APPLIED TO RED SACRAL AREA. PT DENIES NEEDS. SLEEPING WELL. WILL CONTINUE TO MONITOR FREQUENTLY.
[2020-12-08 07:59] VITALS: BP 118/70
--- NOTE | 2020-12-08 11:00 | NUR ---
ASSUMED CARE AT 0700. SLEPT FAIRLY WELL. ALERT AND ORIENTATED. REPORTED HEADACHE EARLIER THIS MORNING AND RESOLVED WITH TYLENOL. APPETITE IS SLIGHTLY IMPROVING AND MANAGED TO EAT 35% OF HER BREAKFAST AND DRANK 95% OF HER SUPPLEMENT. SHE IS UP WITH SBA TO BATHROOM AND ABLE TO EMPTY HER ILEOSTOMY WITH MODERATE AMOUNT LOOSE STOOL. LIDOCAINE PATCH APPLIED TO L HIP. INCISION WITH COUPLE OF STERISTIPS OTHERWISE HERMINIO WITH NO SIGNS OF REDNESS OR INFLAMMATION. PT REQ FOR HYDROCODONE FOR ABD DISCOMFORT/PAIN AND RATES PAIN AT 7/10 AND OBTAINED GOOD RELIEF. ABLE TO WALK WITH THERAPY AND PROGRESSING TOWARDS GOAL.
[2020-12-08 19:28] VITALS: BP 112/66
--- NOTE | 2020-12-08 23:25 | NUR ---
PT ASSESSMENT COMPLETED AND VSS. MEDS GIVEN ORDERED AND WELL TOLERATED. PRN PAIN MEDICATION WORKING WELL FOR GENERALIZED PAIN. ASST WITH REPOSITION FOR COMFORT. Z GUARD APPLIED TO BOTTOM. ILEOSTOMY WITH LIQUID BROWN STOOL. PT WANTING TO LEARN HOW TO CHANGE HER BAG BEFORE SHE GOES HOME. PT STATED THAT SHE REALLY MISSES HER FAMILY AND WANTS TO GO HOME SOON. SHE FEELS THAT SHE IS MUCH STRONGER AND SAFE NOW. SLEEPING AT THIS TIME. WILL CONTINUE TO MONITOR FREQUENTLY.
[2020-12-09 05:29] LABS: ABSOLUTE NEUTROPHILS 2.3 thou/uL (1.4-8.2); BASOPHILS 0.7 % (0.0-2.0); EOSINOPHILS 0.8 % (0.0-3.0); HEMATOCRIT 30.3 % (37.0-47.0); HEMOGLOBIN 9.8 gm/dL (12.0-15.0); LYMPHOCYTES 37.9 % (24.0-44.0); MCHC 32.4 g/dL (28.0-37.0); MCV 89.4 fL (80.0-100.0); MONOCYTES 9.8 % (1.0-8.0); PLATELET COUNT 320 thou/uL (150-400); POLYS 50.8 % (36.0-66.0); RBC 3.38 mil/uL (4.20-5.00); RDW 14.9 % (10.5-14.5); WBC 4.5 thou/uL (4.0-11.0)
[2020-12-09 05:35] LABS: CALCIUM 8.6 mg/dL (8.5-10.1); CREATININE 0.5 mg/dL (0.6-1.0); MAGNESIUM 1.5 mg/dL (1.8-2.4); POTASSIUM 4.2 mmol/L (3.5-5.1)
[2020-12-09 07:15] VITALS: BP 119/70
--- NOTE | 2020-12-09 07:52 | NUR ---
OSTOMY CARE; AWAKE, ALERT, COOPERATIVE, VERY RECEPTIVE TO OSTOMY CARE/EDUCATION, PARTICIPATED IN OSTOMY CARE THIS AM, DUE TO ARTHRITIC HANDS HAS DIFFICUTLY CUTTING WAFER, ABLE TO EMPTY POUCH ON OWN W/OUT PROBLEMS, STATES SHE LIVES W/ SISTER WHO IS A RETIRED RN AND WILL BE ABLE TO ASSIST W/ CARE, NEW POUCH ANJU 2 PIECE SYSTEM CUT TO FIT APPLIED, STOMA RED VIABLE BUDDED W/ LOOSE BROWN STOOL NOTED, PERISTOMAL SKIN INTACT, ABD MIDLINE SUTURE LINE INTACT, HEALING, SUHAS INTACT, ASSOCIATE RESEARCH SCIENTIST TO ASK SURGEON WHEN SUHAS CAN BE REMOVED, ENCOURAGED TO CONT TO PARTICIPATE IN OSTOMY CARE, SUPPLIES AND INFO AT RECOMMENDATIONS; CHANGE POUCH Q 3-5 DAYS AND PRN, EMPTY PRN ASSOCIATE RESEARCH SCIENTIST AWARE RECOMMENDATIONS; CHANGE POUCH Q 3-5 DAYS AND PRN EMPTY PRN,
--- NOTE | 2020-12-09 12:44 | NUR ---
ASSUMED CARE AT 0700. PT REPORTED DID NOT SLEEP TOO WELL AND GETTING UP TOO FREQUENTLY TO USE THE BATHROOM. SHE IS CONCERNED ABOUT DC HOME AND NOT SURE ABOUT OSTOMY CARE. ASHLEY WITH OSTOMY CARE EDUCATED PT ON CARE AND NOTIFIED IF PT LEAVES WILL HAVE HH TO FOLLOW UP WITH CARE. STILL COMPLAINS OF SHARP PAIN IN HER ABDOMINAL INCISION SITE AND MEDICATED WITH HYDROCODONE WITH PARTIAL RELIEF. TODAY'S WEIGHT IS 75LB. SPOKE TO LOSS CONTROL CONSULTANT REGARDING PT'S CELIAC DIAGNOSIS AND CHANGES TO HER DIET. PT EDUCATED TO TAKE THE ENSURE LIFE TO INCREASE BOTH PROTEIN AND CALORIE INTAKE PER LOSS CONTROL CONSULTANT. PROGRESSING TOWARDS GOAL. PT ALSO EAGER ABOUT GOING HOME SOON.
--- NOTE | 2020-12-09 13:38 | NUR ---
Nutrition: Vitamin D-25. REC vitamin D supplementation.
[2020-12-09 19:25] VITALS: BP 110/66
--- NOTE | 2020-12-10 01:07 | NUR ---
REQUESTING HYDROCODONE EVERY 4 HOURS, STATING THAT SHE IS USED TO IT AND HAS BEEN TAKING IT REGULARLY SINCE FIBROMYALGIA DIAGNOSED. EMPTYING ILEOSTOMY POUCH WHENEVER SHE GETS UP TO VOID, TWICE SO FAR THIS SHIFT. WORRIED ABOUT SUHAS NEAR OSTOMY SUDDENLY BEING THE SOURCE OF THE MOST PAIN, AT LEAST WHEN HER KNEE IS NOT BOTHERING HER. LEFT HIP IS THE SOURCE OF MOST PAIN ONLY WITH THERAPY SESSIONS. STATES HER APPETITE IS IMPROVING BUT CANNOT FINISH HER SECOND ENSURE TODAY
[2020-12-10 08:11] VITALS: BP 150/106
[2020-12-10 09:08] VITALS: BP 130/83
--- NOTE | 2020-12-10 12:10 | NUR ---
ASSUMED CARE AT 0700 THIS MORNING. PT. UP AND WORKING WELL WITH OT/PT. SHE REFUSED BREAKFAST AND AND ALL DRINKS WITH IT. THIS RN TALKED TO HER ABOUT NEED TO EAT SOMETHING. SHE JUST SAID, "I KNOW, I'VE HEARD THIS, BUT I'M JUST NOT HUNGRY". SHE TOOK ALL HER MORNING MEDICATIONS WITHOUT PROBLEMS. SHE WAS COOPERATIVE WITH THE ASSESSMENT. WILL CONTINUE TO MONITOR.
--- NOTE | 2020-12-10 12:30 | NUR ---
vendor form on pt chart
[2020-12-10 13:45] VITALS: BP 113/67
[2020-12-10 19:18] VITALS: BP 115/81
--- NOTE | 2020-12-11 00:43 | NUR ---
PT ALERT AND ORIENTED X 4, FORGETFUL. ILEOSTOMY INTACT. STERI-STRIPS INTACT TO LEFT HIP. PT TOOK HS MEDS IN APPLESAUCE WITHOUT DIFFICULTY. PT C/O GENERALIZED PAIN. HYDROCODONE GIVEN AT START OF SHIFT. BED ALARM ON FOR SAFETY. PT APPEARS TO BE SLEEPING ON HOURLY ROUNDS.
--- NOTE | 2020-12-11 05:30 | NUR ---
PT KNOWS HOW TO TURN BED ALARM OFF AND HAS BEEN AMBULATING TO BR UNASSISTED. PT INSTRUCTED TO CALL FOR ASSISTANCE WHEN GETTING UP. PT STATES SHE WILL CALL FROM NOW ON.
[2020-12-11 08:00] VITALS: BP 137/87
[2020-12-11 08:10] VITALS: BP 137/87
--- NOTE | 2020-12-11 08:34 | NUR ---
ASSUMED CARE AT 0700. PATIENT IS ALERT AND ORIENTED X4. PATIENT WOMACK'S, RADIUS GRINDER ARE EQUAL. LUNGS ARE CLEAR. ABD IS SOFT WITH BSX4. PATIENT HAS ILEOSTOMY THAT HAS BROWN LOOSE DRAINAGE. OSTOMY NURSE HERE TO SEE PATIENT. PLAN PATIENT TEACHING TO FAMILY LATER TODAY. PLAN D/C IN AM TO HOME. PATIENT HAS STERI-STRIPS TO LEFT HIP. UP IN CHAIR FOR MEALS. FALL AND SAFETY PROTOCOLS IN PLACE. C/O H.A. PAIN. MEDICATED WITH PRN PAIN MED. PATIENT CONTINUES TO PROGRESS TOWARDS D/C GOALS. WILL CONTINUE TO MONITER.
--- NOTE | 2020-12-11 11:19 | NUR ---
referral [facility] to [facility], dimitrios spoke with her sister funmilayo, she is not the visitor but will need to be for tomorrow training with ostomy education. funmilayo doesnt not get around that well and will need assist out car to wheel chair to come up for training per fnumilayo. " hope her eating is better, could not get her to eat last time she came home from hospital"/funmilayo. dimitrios passed on information to nurse deputy united [employer] marshal.
--- NOTE | 2020-12-11 12:31 | NUR ---
PATIENT'S SISTER JULISA WAS CONTACTED REGARDING COLOSTOMY TRAINING. SHE HAS DIFFICULTY WALKING, AND WOULD PREFER THAT THE HOME HEALTH NURSE PLEASE REVIEW THE COLOSTOMY CHANGE WITH HER IN THE HOME SETTING. GEORGI SIMMONS, RN COLOSTOMY CARE NURSE, AGREED THAT THIS WAS OK, THE SISTER IS AN EXPERIENCED RETIRED RN. PER JULISA, THE PATIENT'S SON IS THE DV, AND WILL BE THE PERSON TO TAKE HER HOME TOMORROW. IT HAS BEEN ARRANGED FOR THE SON TO ATTEND THE COLOSTOMY BAG CHANGE TRAINING WITH GEORGI SIMMONS TOMORROW AT 1130 JUST PRIOR TO DISCHARGING HOME. PT'S SISTER ASKED THAT SUPPLIES PLEASE BE SENT WITH THE PATIENT APPROPRIATE TO MEET HER NEEDS UNTIL THE HOME HEALTH TEAM CAN BEGIN VISITS. PATIENT'S SUHAS ARE TO REMAIN IN PLACE PER DR. ARAUJO UNTIL THE PATIENT FOLLOWS UP IN THE OFFICE NEXT WEEK. THIS HAS BEEN COMMUNICATED TO GEORGI SIMMONS AND TO SRINATH CM RN.
--- NOTE | 2020-12-11 15:06 | NUR ---
FAXED REFERRAL TO [facility] SPOKE WITH GAYLA IN ADM SHE CAN ACCEPT HAS HAD THIS PT IN THE PAST AND PT REFUSED HH AT THAT TIME. DHAVAL (RN/SW) SPOKE WITH PT AND SHE WILL DC TO HER SISTER'S HOME AND WILL PARTICIPATE WITH HH. NOTIFIED GAYLA AND THEY WILL ARRANGE VISITS WITH PT.
[2020-12-11 15:08] VITALS: BP 137/87
[2020-12-11 19:03] VITALS: BP 141/95
--- NOTE | 2020-12-12 04:15 | NUR ---
UP TO TOILET WITH GAIT BELT, WALKER, AND STANDBY ASSIST. PAIN MED FOR PAIN AT STAPLE LINE. VERY LITTLE OUTPUT FROM ILEOSTOMY UNTIL A SUDDEN GUSH OF LIQUID OUTPUT ABOUT 0330 OVERWHELMED BAG AND IT PULLED AWAY FROM HER BODY. PATIENT CLEANED UP AND NEW APPLIANCE PLACED AROUND STOMA. PROCESS REVIEWED WITH PATIENT INCLUDING TRIMMING TO FIT OVER STOMA AND PLACED OVER SLIGHTLY STRETCHED RING WITH SMALL STRIP OF PAPER TAPE TO COVER SUHAS. PATIENT GLAD HER SISTER IS A NURSE AND IS FAMILIAR WITH OSTOMIES SHE IS GOING HOME TODAY, ONCE APPLIANCE IS ON, SHE IS COMFORTABLE EMPTYING IT WHEN SHE IS UP TO VOID
[2020-12-12 08:00] VITALS: BP 109/68
[2020-12-12] MEDS ORDERED: PROTONIX40 M4 PO (09:22)
[2020-12-12] MEDS ORDERED: CARAFATE 1 GM TA1 G1 PO (09:22)
[2020-12-12] MEDS ORDERED: MEGESTROL ACETA40 MG PO (09:22)
[2020-12-12] MEDS ORDERED: POTASSIUM20 PO (09:22)
[2020-12-12] MEDS ORDERED: VITAMIN D325 MC5 PO ×2 (09:27→11:55)
[2020-12-12 10:48] VITALS: BP 137/87
--- NOTE | 2020-12-12 11:42 | NUR ---
pt son here, going to have ostomy training. dc home today with sister and family. sister assist with medication and finances. [facility] ( pt, ot, st and nursing).
--- NOTE | 2020-12-12 11:42 | NUR ---
OSTOMY CARE; SON HERE TO LEARN OSTOMY CARE, SISTER UNABLE TO COME SHE HAS DIFFICULTY WALKING, BOTH PT AND SON VERY RECEPTIVE TO OSTOMY EDUCATION/MANAGEMENT, POUCH INTACT BUT CHANGED SO SON COULD SEE PROCEDURE, STOMA REMAINS, RED BUDDED VIABLE, LOOSE BROWN STOOL NOTED, PERISTOMAL SKIN INTACT, SUPPLIES AND TEACHING INFO AT , HOME HEALTH TO ASSIST W/ FURTHER EDUCATION AND CARE AT HOME, AWARE MID LINE SUHAS TO REMAIN UNTIL SEEN BY DR ARAUJO SURGEON, MAGDALENE QUIÑONEZ OVER SUHAS, REVIEWED DIET W/ SMALLER MORE FREQ MEALS, LOW FIBER RECOMMENDATIONS; CHANGE POUCH Q 3-5 DAYS AND PRN, EMPTY PRN HOUSE WORKER GENERAL AWARE
[2020-12-12] MEDS ORDERED: IRON325 PO (11:55)
[2020-12-12] MEDS ORDERED: NEURONTIN 300M300 M2 PO (11:55)
[2020-12-12] MEDS ORDERED: MAGOX 400400 MG PO (11:55)
[2020-12-12] MEDS ORDERED: DULOXETINE HCL60 MG PO (11:55)
[2020-12-12] MEDS ORDERED: CLOPIDOGREL75 MG PO (11:55)
[2020-12-12] MEDS ORDERED: LIDOPATCH1 EACH TRANSDERM (11:55)
--- NOTE | 2020-12-12 12:10 | NUR ---
ASSUMED CARE AT 0700. PT A&OX3. RN ASSISTED PT TO BATHROOM WITH USE OF GAIT BELT AND WALKER. PT WAS STEADY WITH WALKER. GEORGI DAVIS BELT POLISHER CAME AND SAW PT AND GAVE MORE EDUCATION ON OSTOMY CARE. GEORGI THEN RETURNED AT 11:15 AND GAVE TEACHING AND EDUCATION TO PT'S SON AND QUESTIONS WERE ANSWERED. PT'S BELONGING PACKED AND SENT WITH SON. D/C PAPERWORK AND INSTRUCTIONS GIVEN TO PT AND SON AND QUESTIONS WERE ANSWERED. NEW PAPER PRESCRIPTION GIVEN TO PT. DIRECTOR RECORDS MANAGEMENTNOEL WENT OVER CURRENT MEDICATIONS THAT PT IS TO BE D/C HOME ON WITH PT AND SON. PT STOOD UP FROM SIDE OF BED AND CHANGED INTO 2 TOPS, UNDERWEAR, PANTS, SOCKS AND TENNIS SHOES. PT TAKEN TO HER SON'S CAR VIA WHEELCHAIR WITH NURSING STAFF.
--- NOTE | 2020-12-12 12:15 | NUR ---
FAXED DISCHARGE ORDERS AND SUMMARY TO [facility]. WILL CONFIRM WITH GAYLA SHE RECEIVED DOCUMENTS. [facility] P [phone]; FAX [phone]
--- NOTE | 2020-12-13 16:59 | H ---
[facility] [place] [address] HISTORY AND PHYSICAL Name: SUNNI CERDA Room #: 505-P [facility] IN M.R.#: [id number] Admission: 12/03/20 Attend Phys: Keith Godwin MD Discharge: 12/12/20 Date of : 50 Report #: [id number] THIS REPORT FOR: cc: José Wray Steve T. DO Smithson, David G. MD ~ DATE OF SERVICE: 12/03/2020 HISTORY AND PHYSICAL ADDENDUM HISTORY OF PRESENT ILLNESS: Please see the documented history and physical as noted. The patient has a complex history and is now being readmitted for acute inpatient rehabilitation. She had originally been admitted to [facility] for pneumonia, found to have an Escherichia coli urinary tract infection. Her potassium was low, which improved with oral supplements. She had a fall on 11/10/2020 resulting in a left intertrochanteric femoral neck fracture. She underwent intramedullary nailing on 11/11/2020 and was limited to toe touch weightbearing. She was transferred to the acute inpatient rehab [facility], but she had continued abdominal pain and nausea and CT of the abdomen revealed high-grade obstruction and she was discharged back to the acute care unit. She underwent surgery and has a new ileostomy placed. The patient's hospital course has been complicated by encephalopathy, which appears to be improving. She is now eating better and is tolerating therapies and was felt to be ready for readmission for acute in-hospital inpatient rehabilitation. She has been followed by Orthopedics and has now been advanced to weightbearing as tolerated on both lower extremities. PAST MEDICAL HISTORY: Please see the documentation. MEDICATIONS: Per NOV. ALLERGIES: No known drug allergies. SOCIAL HISTORY: Habits are all per the documentation. She is a former smoker. REVIEW OF SYSTEMS: Please see the full 14-point system as noted. She did not have any chest pain, shortness of breath, abdominal pain. Notes that she has had some abdominal discomfort with the ileostomy. Her hip discomfort is overall significantly improved. PHYSICAL EXAMINATION: GENERAL: She is a small statured very thin 69-year-old white female in no obvious distress. She was seen on 12/03/2020. VITAL SIGNS: Temperature 36.9, pulse 94, respirations 14, blood pressure 110/75. She was awake, alert, oriented. She follows basic commands without [facility] [address] [place] [address] HISTORY AND PHYSICAL Name: SUNNI CERDA [facility] Room #: 505-P [facility] IN .R.#: [id number] Admission: 12/03/20 Attend Phys: Keith Godwin MD Discharge: 12/12/20 Date of : 50 Report #: [id number] difficulty. There is some slowing to her responses. HEENT: Normocephalic. NECK: No lymphadenopathy. CHEST: Sounded clear to auscultation. CARDIOVASCULAR: Sounded regular rate and rhythm. ABDOMEN: She does have an ileostomy in place. Bowel sounds are positive. GENITOURINARY AND RECTAL: Deferred. EXTREMITIES: She has functional range of motion of both upper extremities. Strength is grade 4-/5. Lower extremities, her left hip incision appears to be healing well and she has some Steri-Strips in place. There is no focal calf swelling. Her strength is probably a grade 4-/5. No focal calf swelling. No significant distal lower extremity edema. She is min assist coming to stand. Once up, she is utilizing the walker for short distances. NEUROLOGIC: She does have decreased memory and some cognitive deficits that are noted. Some decreased short-term memory. ASSESSMENT: A 69-year-old white female previously known to us, now readmitted for acute in-hospital inpatient rehabilitation. Problem list includes: 1. Multifactorial toxic metabolic encephalopathy. 2. Left intertrochanteric hip fracture, status post intramedullary nailing, 11/11/2020, now weightbearing as tolerated. 3. High-grade colonic obstruction, status post hemicolectomy with mobilization of splenic flexure, new ileostomy, 11/28/2020. 4. History of recurrent falls. 5. Hypokalemia, resolved. 6. Escherichia coli urinary tract infection, status post treatment. 7. Spinal stenosis, chronic pain, fibromyalgia, systemic lupus erythematosus and rheumatoid arthritis. 8. Anemia. 9. Anxiety/depression. 10. Severe protein-calorie malnutrition. PLAN: The patient has been readmitted. The goal would be for her to be involved in the interdisciplinary acute inpatient rehabilitation program to maximize her functional independence, so she can hopefully return back to her prior living situation. As far as risk of complication, she does have the multiple medical comorbidities as noted above. Measurable functional goals would be for her to improve further as far as her mobility, ADLs as well as cognition, so she can return back to the home setting. Prognosis is reasonably good with estimated length of stay probably at least 10-14 days. Potential barriers would include her multiple medical comorbidities and decreased functional status. The patient meets diagnostic criteria for an acute in-hospital inpatient rehabilitation stay. She meets the medical necessity criteria. We will have [address] [address] HISTORY AND PHYSICAL Name: SUNNI CERDA LIZZETTE Room #: 505-P DIS IN M.R.#: [id number] Admission: 12/03/20 Attend Phys: Keith Godwin MD Discharge: 12/12/20 Date of : 50 Report #: [id number] the multiple portrait consultant physicians continue to follow. She does have the tolerance for therapies and has appropriate discharge goals back to the home setting. <ELECTRONICALLY SIGNED> By: Keith Godwin MD 12/13/20 1659 [id number] Keith Godwin MD /nt
--- NOTE | 2020-12-13 16:59 | PLAN ---
[facility] [place] [address] REHAB UNIT PLAN OF CARE Name: SUNNI CERDA Room #: 505-P [facility] IN M.R.#: [id number] Admission: 12/03/20 Attend Phys: Keith Godwin MD Discharge: 12/12/20 Date of : 50 Report #: [id number] THIS REPORT FOR: cc: José Wray Steve T. DO Smithson,Keith Hayes MD ~ DATE OF SERVICE: 12/05/2020 The overall plan of care is based on the preadmission screen and information garnered from therapy assessments SUBJECTIVE: The patient has been in physical therapy with transfers at a contact guard assistance level. Gait is contact guard 200 feet with a front-wheeled walker. She is starting to work on stairs. In occupational therapy, lower body dressing is min assist, upper body dressing is supervision. She is involved in speech therapy as well with qnub-xs-hzojwtvt cognitive deficits, mglenbxg-zg-aqdici memory deficits. ASSESSMENT: 1. Multifactorial toxic metabolic encephalopathy. 2. Left intertrochanteric hip fracture, status post intramedullary nailing on 11/11/2020. Weightbearing as tolerated. 3. High-grade colonic obstruction, status post hemicolectomy with mobilization of splenic flexure, new ileostomy 11/28/2020. 4. History of recurrent falls. 5. Hypokalemia, resolved. 6. Escherichia coli urinary tract infection, status post treatment. 7. Spinal stenosis. 8. Chronic pain. 9. Fibromyalgia. 10. Systemic lupus erythematosus. 11. History of rheumatoid arthritis. 12. Anemia. 13. Anxiety and depression. 14. Protein-calorie malnutrition. PLAN: 1. Estimated length of stay is probably 10-14 days. It may be closer to 10 days, but will need to see how she does. 2. Medical prognosis is reasonably good. 3. Anticipated interventions includes the interdisciplinary acute inpatient rehabilitation program. 4. Anticipated functional outcomes would be for the patient to become modified independence with transfers, mobility, ADLs, so that she can hopefully return back to her prior living situation. [facility] [address] [place] [address] REHAB UNIT PLAN OF CARE Name: TOMJOYCESUNNI MCKEON [facility] Room #: 505-P [facility] IN M.R.#: [id number] Admission: 12/03/20 Attend Phys: Keith Godwin MD Discharge: 12/12/20 Date of : 50 Report #: [id number] 5. Discharge destination: Back to the home setting where she lives at home with her sister and her sons. The goal is also to improve her overall cognition. 6. Expected therapy by discipline includes PT, OT and speech 1 hour per day each five days a week throughout the duration of the acute inpatient rehabilitation stay. The patient's prognosis for significant practical improvement within a reasonable period of time appears good. Given the patient's complex medical condition and risk of further medical complication, rehabilitation services cannot be safely provided at a lower level of care such as a [place] [facility] facility. <ELECTRONICALLY SIGNED> By: Keith Godwin MD 12/13/20 1659 [id number] Keith Godwin MD /nt
== END 2020-12-12 12:11 | disposition home health service (06) | DRG 91 ==
PROVIDERS: Nurse Practitioner; Nurse Practitioner Family; ADMIT Physical Medicine & Rehabilitation; ATTEND Physical Medicine & Rehabilitation
DX: G92 Toxic encephalopathy (principal); S72.142A Displaced intertrochanteric fracture of left femur, initial encounter for closed fracture; E43 Unspecified severe protein-calorie malnutrition; N39.0 Urinary tract infection, site not specified; Z68.1 Body mass index [BMI] 19.9 or less, adult; K56.609 Unspecified intestinal obstruction, unspecified as to partial versus complete obstruction; R29.6 Repeated falls; B96.20 Unspecified Escherichia coli [E. coli] as the cause of diseases classified elsewhere; E87.6 Hypokalemia; G89.29 Other chronic pain; M79.7 Fibromyalgia; M32.9 Systemic lupus erythematosus, unspecified; M06.9 Rheumatoid arthritis, unspecified; F32.9 Major depressive disorder, single episode, unspecified; F41.9 Anxiety disorder, unspecified; K21.9 Gastro-esophageal reflux disease without esophagitis; D50.9 Iron deficiency anemia, unspecified; I10 Essential (primary) hypertension; M48.00 Spinal stenosis, site unspecified; R53.81 Other malaise; E83.42 Hypomagnesemia; Z79.891 Long term (current) use of opiate analgesic; Z90.710 Acquired absence of both cervix and uterus; Z98.49 Cataract extraction status, unspecified eye; W18.39XA Other fall on same level, initial encounter; Y93.89 Activity, other specified; Y92.89 Other specified places as the place of occurrence of the external cause; Y99.8 Other external cause status; Z47.89 Encounter for other orthopedic aftercare
CPT/HCPCS: 10112

== ENCOUNTER 2021-01-03 16:16 | Inpatient (IN) | payer OTHER ==
[~2021-01-03] VITALS: Ht 157.5 cm; Wt 34.9 kg
[~2021-01-03 16:16] MED LIST changes: +NEURONTIN 300M300 M2 PO; +NORCO 10-325 T1 EACH PO; +PROTONIX40 M4 PO; +VITAMIN D325 MC5 PO
[2021-01-03 16:17] VITALS: BP 152/86
[2021-01-03 16:42] LABS: ABSOLUTE NEUTROPHILS 5.9 thou/uL (1.4-8.2); BASOPHILS 0.7 % (0.0-2.0); EOSINOPHILS 0.2 % (0.0-3.0); HEMOGLOBIN 12.7 gm/dL (12.0-15.0); LYMPHOCYTES 17.6 % (24.0-44.0); MCHC 32.6 g/dL (28.0-37.0); MCV 91.8 fL (80.0-100.0); MONOCYTES 7.4 % (1.0-8.0); PLATELET COUNT 392 thou/uL (150-400); POLYS 74.1 % (36.0-66.0); RBC 4.25 mil/uL (4.20-5.00); RDW 15.2 % (10.5-14.5); WBC 7.9 thou/uL (4.0-11.0)
[2021-01-03 16:52] LABS: ANION GAP 19 mmol/L (7-16); BUN 86 mg/dL (7-18); CHLORIDE 92 mmol/L (98-107); CO2 12 mmol/L (21-32); CREATININE 2.3 mg/dL (0.6-1.0); GLUCOSE 76 mg/dL (74-106); MAGNESIUM 3.4 mg/dL (1.8-2.4); POTASSIUM 5.5 mmol/L (3.5-5.1); SODIUM 123 mmol/L (136-145)
[2021-01-03 17:01] LABS: ALBUMIN 3.3 g/dL (3.4-5.0); SGOT 20 U/L (15-37); SGPT 17 U/L (30-65); TOTAL BILIRUBIN 0.3 mg/dL (0.2-1.0); TOTAL PROTEIN 6.9 g/dL (6.4-8.2); TROPONIN-I <0.06 ng/mL (<0.06)
[2021-01-03] MEDS ORDERED: COLACE100 MG PO (17:43)
[2021-01-03] MEDS ORDERED: DULOXETINE HCL60 MG PO (17:43)
[2021-01-03] MEDS ORDERED: PLAVIX 75 MG TA75 MG PO (17:43)
[2021-01-03] MEDS ORDERED: NEURONTIN 300M300 M2 PO (17:44)
[2021-01-03] MEDS ORDERED: NORCO 10-325 T1 EACH PO (17:44)
[2021-01-03] MEDS ORDERED: FERROUS SULFATE PO (17:44)
[2021-01-03] MEDS ORDERED: PLAQUENIL200 MG PO (17:45)
[2021-01-03] MEDS ORDERED: LIDOCAINE1 EAC1 TOP (17:45)
[2021-01-03] MEDS ORDERED: PROTONIX40 M2 PO (17:46)
[2021-01-03] MEDS ORDERED: MEGESTROL ACETATE (17:46)
[2021-01-03] MEDS ORDERED: MAGNESIUM OXID400 M2 PO (17:46)
[2021-01-03] MEDS ORDERED: KLOR-CON 10 ER10 MEQ PO (17:47)
[2021-01-03] MEDS ORDERED: REQUIP 0.25 M0.25 M1 PO (17:47)
[2021-01-03] MEDS ORDERED: CARAFATE1 GM PO (17:48)
[2021-01-03 17:50] LABS: URINE BILIRUBIN NEGATIVE (Negative); URINE BLOOD 1+ (Negative); URINE CLARITY CLEAR; URINE COLOR YELLOW; URINE GLUCOSE-RANDOM* NEGATIVE (Negative); URINE KETONES NEGATIVE (Negative); URINE LEUKOCYTES-REFLEX NEGATIVE (Negative); URINE NITRITE-REFLEX NEGATIVE (Negative); URINE PROTEIN (DIPSTICK) TRACE (Negative); URINE SPECIFIC GRAVITY >= 1.030 (1.005-1.035); URINE UROBILINOGEN 0.2 E.U./dl (0.2-1.0)
[2021-01-03 17:58] LABS: HYALINE CASTS >10 Many /LPF (None Seen)
[2021-01-03 17:59] LABS: COARSE GRANULAR CASTS 0-3 Few /LPF (None Seen); URINE RBC 1-2 Rare /HPF (NONE SEEN); URINE WBC-REFLEX 0-5 Rare /HPF (0-5)
[2021-01-03 18:00] LABS: SQUAMOUS None Seen /LPF (0-3)
[2021-01-03 18:01] LABS: CRYSTALS None Seen /LPF (None Seen)
[2021-01-03 19:02] VITALS: BP 157/73
[2021-01-03 19:12] LABS: CHOLESTEROL 233 mg/dL (<200); HDL CHOLESTEROL 48 mg/dL (>40); LDL CHOLESTEROL 139 mg/dL (<100); TC:HDL 4.9 Ratio (Not establshd); TRIGLYCERIDE 234 mg/dL (<150); VLDL 47 mg/dL (<40)
[2021-01-03 19:36] LABS: FOLIC ACID 19.3 ng/mL (8.6-58.9)
[2021-01-04 04:45] LABS: HEMATOCRIT 35.3 % (37.0-47.0); HEMOGLOBIN 11.5 gm/dL (12.0-15.0); MCH 29.1 pg (26.0-34.0); MCHC 32.6 g/dL (28.0-37.0); MCV 89.4 fL (80.0-100.0); RBC 3.95 mil/uL (4.20-5.00); RDW 15.2 % (10.5-14.5); WBC 5.9 thou/uL (4.0-11.0)
[2021-01-04 04:47] LABS: CALCIUM 8.2 mg/dL (8.5-10.1); CREATININE 1.7 mg/dL (0.6-1.0); POTASSIUM 4.7 mmol/L (3.5-5.1)
[2021-01-04 08:19] VITALS: BP 147/94
--- NOTE | 2021-01-04 12:40 | NUR ---
ASSUMED PT CARE THIS AM. PT IS ALERT & ORIENTED X3. PT HAS IV SITE R AC AND L FA. PT USES BEDSIDE COMMODE AND UP WITH ASSIST X1. PT C/O OF PAIN AND GIVEN PAIN MEDICATION. PT HAS COLOSTOMY ON RLQ. PT NO C/O NAUSEA AND VOMITING. PT REFUSED THERAPY TODAY DUE TO PAIN BUT GIVEN PAIN MEDICATION. PT ON THE BED SLEEPING, BED ON THE LOWEST POSITION, SIDE RAILS UP, CALL LIGHT WITHIN REACH. WILL CONTINUE TO MONITOR PT. FOLLOW POC.
[2021-01-04 19:36] VITALS: BP 148/107
[2021-01-04 20:04] VITALS: BP 168/109
--- NOTE | 2021-01-05 04:21 | NUR ---
ASSUMED CARE OF PT AT 1900. PT IS A/O X3. SHE IS ALERT TO SELF/PLACE/AND TIME BUT IS CONFUSED ON WHY SHE IS HERE EXACTLY. SHE IS 100% ON RA. BP ELEVATED. ACID STRENGTH INSPECTOR NOTIFIED AND ORDERS GIVEN FOR PRN BP MEDICATION. PT IS UP WITH ASSISTANCE TO THE BSC TO VOID AND DOES SO FREQUENTLY. STATES SHE HAS URGENCY AT TIMES. COLOSTOMY IN PLACE DRAINING LIQUID BROWN/GREEN STOOL. CONCERNED ABOUT HOME MEDICATION TO INCREASE APPETITE SHE STATED SHE DIDN'T EAT MUCH YESTERDAY. ACID STRENGTH INSPECTOR ORDERED TO RESTART HOME MED. C/O PAIN TO HER LOWER BACK, HEAD, AND ABDOMEN. PRN TYLENOL GIVEN DIRECTED. FALL PRECAUTIONS IN PLACE, CALL LIGHT IS WITHIN REACH. WILL CONTINUE TO MONITOR.
[2021-01-05 04:53] LABS: CALCIUM 8.8 mg/dL (8.5-10.1); CREATININE 0.8 mg/dL (0.6-1.0); POTASSIUM 4.2 mmol/L (3.5-5.1)
[2021-01-05 07:30] VITALS: BP 148/96
--- NOTE | 2021-01-05 11:19 | NUR ---
ASSUMED PT CARE THIS AM. PT IS ALERT & ORIENTED X3. PT HAS IV SITE ON L WRIST SALINE LOCKED. DISCONTINUE IV FLUID PER MD ORDERED. CALLED PHARMACY THIS AM TO CLARIFY THE DOSE AND FREQUENCY FOR MEGESTROL ACETATE. GIVEN THIS MORNING PER ORDERED. PT HAS COLOSTOMY ON RLQ. PT IS UP WITH ASSIST X1 AND USES BEDSIDE COMMODE. CALLED DIETARY FOR LUNCH DUE TO PT FOOD PREFERENCE. PT C/O OF PAIN AND GIVEN PAIN MEDICATION. PT ON THE BED, BED ON THE LOWEST POSITION, SIDE RAILS UP, CALL LIGHT WITHIN REACH. WILL CONTINUE TO MONITOR PT. FOLLOW POC.
[2021-01-05 16:10] VITALS: BP 150/101
[2021-01-05 19:17] VITALS: BP 148/94
--- NOTE | 2021-01-06 04:22 | NUR ---
resident alert with confusion thru noc. c/o pain x1 given prn @ 2100, effective . up to bsc x3 thru noc. concerned with seeing the doctor this am.colostomy in place no leakage patent and flowing w/o issues.
--- NOTE | 2021-01-06 07:03 | EKG ---
[address] [address] ELECTROCARDIOGRAM REPORT Name: SUNNI CERDA LIZZETTE Room #: 452-P ADM IN M.R.#: [id number] Admission: 01/03/21 Attend Phys: Omar Mustafa MD Discharge: Date of : 50 Report #: [id number] [facility] ED Test Date: 2021-01-03 Test Time: 16:31:26 Pat Name: SUNNI CERDA Department: Room: 452 Gender: F Immigration Services Officer: : 1950 Requested By: Ketih Polanco Order Number: [id number] MD: Hayden Ballard Measurements Intervals [place] Rate: 130 P: 57 [place]: 140 QRS: -39 QRSD: 82 T: 60 QT: 300 QTc: 441 Interpretive Statements Sinus tachycardia Left axis deviation Abnormal R-wave progression, late transition Borderline ST elevation suggests acute pericarditis Compared to ECG 12/05/2020 11:18:58 Left-axis deviation now present ST (T wave) deviation now present Myocardial infarct finding no longer present Electronically Signed On 01-06-2021 7:02:58 CDT by Hayden Ballard [email or web address] <ELECTRONICALLY SIGNED> By: Hayden Ballard MD, FAC 01/06/21 0702 1631 1631 Hayden Ballard MD, [facility] /EPI
[2021-01-06 07:43] VITALS: BP 158/88
--- NOTE | 2021-01-06 10:51 | NUR ---
ASSUMED PT CARE THIS AM. PT IS ALERT & ORIENTED X3. PT HAS IV SITE ON L WRIST. PT HAS COLOSTOMY ON RLQ. PT DENIES PAIN THIS AM. PT IS UP WITH ASSIST X1 AND USES BEDSIDE COMMODE. PT VOID FREQUENTLY. PT ON THE BED, BED ON THE LOWEST POSITION, SIDE RAILS UP, CALL LIGHT WITHIN REACH. WILL CONTINUE TO MONITOR PT. FOLLOW POC.
[2021-01-06 12:24] VITALS: BP 158/88
--- NOTE | 2021-01-06 12:27 | NUR ---
PT ADMITTED RELATED TO KOFI, DEHYDRATION, HYPONATREMIA, HYPERKALEMIA. CM REVIEWED CHART AND SPOKE WITH CARE TEAM. PT IS FAMILIAR TO CM FROM PREVIOUS ADMISSION. CM MET WITH PT AT BEDSIDE THIS DAY. PT APPEARED TO BE A&O X4. CM ROLE INTRODCUED. PT INDICATED SHE LIVES IN A HOUSE WITH HER SISTER AND SON. PT INDICATED 3 STEPS TO ENTER AND NO SHE NEEDS TO USE INSIDE. PT INDICATED SHE HAD A FWWM, A GB, AND SHOWER CHAIR FOR HOME USE. PT HAD BEEN ON SERVICE WITH [facility] FRONT END SOFTWARE DEVELOPER. SHE INDICATED THAT SHE WOULD BE AGREEABLE TO RESUMING SERVICES WITH THEM UPON DC. CARE TEAM INDICATED THAT PT IS MEDICALLY STABLE TO DC HOME THIS DAY. CM CALLED [facility] AND CONFIRMED PT ON SERVICE AND THEY CAN RESUME UPON DC. CM FAXED ORDERS. PT'S SON TO PROVIDE TRANSORT AFTER LUNCH THIS DAY. NO OTHER CM INTERVENTION INDICATED. CASE CLOSED.
== END 2021-01-06 13:00 | disposition home health service (06) | DRG 682 ==
LOC: ER 16:16 → 4W 17:57 → EROBS 17:57 → 4W 19:33
PROVIDERS: Emergency Medicine; ADMIT Hospitalist; ATTEND Hospitalist
DX: N17.9 Acute kidney failure, unspecified (principal); E43 Unspecified severe protein-calorie malnutrition; G92 Toxic encephalopathy; E87.1 Hypo-osmolality and hyponatremia; Z68.1 Body mass index [BMI] 19.9 or less, adult; K21.9 Gastro-esophageal reflux disease without esophagitis; E87.5 Hyperkalemia; M79.7 Fibromyalgia; I10 Essential (primary) hypertension; F32.9 Major depressive disorder, single episode, unspecified; E86.0 Dehydration; E86.9 Volume depletion, unspecified; G89.4 Chronic pain syndrome; F17.210 Nicotine dependence, cigarettes, uncomplicated; M48.00 Spinal stenosis, site unspecified; F41.9 Anxiety disorder, unspecified; Z79.899 Other long term (current) drug therapy; Z79.01 Long term (current) use of anticoagulants; Z90.710 Acquired absence of both cervix and uterus
CPT/HCPCS: 10045

== ENCOUNTER 2021-01-22 15:12 | Inpatient (IN) | payer OTHER ==
[~2021-01-22] VITALS: Ht 157.5 cm; Wt 36.3 kg
[~2021-01-22 15:12] MED LIST changes: +CARAFATE1 GM PO; +FERROUS SULFATE PO; +KLOR-CON 10 ER10 MEQ PO; +LIDOCAINE1 EAC1 TOP; +MAGNESIUM OXID400 M2 PO; +MEGESTROL ACETATE; +PLAVIX 75 MG TA75 MG PO; +PROTONIX40 M2 PO
[2021-01-22 15:13] VITALS: BP 145/104
[2021-01-22 16:04] LABS: ABSOLUTE NEUTROPHILS 7.9 thou/uL (1.4-8.2); BASOPHILS 0.5 % (0.0-2.0); EOSINOPHILS 0.9 % (0.0-3.0); HEMATOCRIT 43.9 % (37.0-47.0); HEMOGLOBIN 13.8 gm/dL (12.0-15.0); MCH 29.4 pg (26.0-34.0); MCHC 31.3 g/dL (28.0-37.0); MCV 93.8 fL (80.0-100.0); MONOCYTES 5.2 % (1.0-8.0); PLATELET COUNT 485 thou/uL (150-400); POLYS 70.4 % (36.0-66.0); RBC 4.68 mil/uL (4.20-5.00); RDW 17.2 % (10.5-14.5); WBC 11.2 thou/uL (4.0-11.0)
[2021-01-22 16:12] LABS: ANION GAP 16 mmol/L (7-16); BUN 36 mg/dL (7-18); CALCIUM 9.7 mg/dL (8.5-10.1); CHLORIDE 104 mmol/L (98-107); CO2 14 mmol/L (21-32); GLUCOSE 125 mg/dL (74-106); POTASSIUM 4.6 mmol/L (3.5-5.1); SODIUM 134 mmol/L (136-145)
--- NOTE | 2021-01-22 16:19 | EKG ---
[place] [address] [facility] [place] [address] ELECTROCARDIOGRAM REPORT Name: SUNNI CERDA LIZZETTE Room #: [facility]#: [id number] Admission: 01/22/21 Attend Phys: Discharge: Date of : 50 Report #: [id number] [facility] ED Test Date: 2021-01-22 Test Time: 15:39:42 Pat Name: SUNNI CERDA Department: Room: Gender: F Ripshear Operator: shabbir : 1950 Requested By: Jannet Dixon Order Number: [id number] MD: Hayden Ballard Measurements Intervals [place] Rate: 89 P: 80 CT: 137 QRS: 26 QRSD: 76 T: 75 QT: 377 QTc: 459 Interpretive Statements Sinus rhythm Probable left atrial enlargement Baseline wander in lead(s) I,II,aVR Compared to ECG 01/03/2021 16:31:26 Sinus tachycardia no longer present Left-axis deviation no longer present Electronically Signed On 01-22-2021 16:18:58 CDT by Hayden Ballard [email or web address] <ELECTRONICALLY SIGNED> By: Hayden Ballard MD, [facility] 01/22/21 1618 153 38 Hayden Ballard MD, FAC /EPI
[2021-01-22 16:29] LABS: ALBUMIN 3.9 g/dL (3.4-5.0); LIPASE 278 U/L (73-393); MAGNESIUM 2.4 mg/dL (1.8-2.4); SGOT 24 U/L (15-37); SGPT 22 U/L (14-59); TOTAL BILIRUBIN 0.2 mg/dL (0.2-1.0); TOTAL PROTEIN 7.1 g/dL (6.4-8.2); TROPONIN-I <0.06 ng/mL (<0.06)
[2021-01-22 17:54] LABS: URINE BILIRUBIN NEGATIVE (Negative); URINE BLOOD TRACE (Negative); URINE CLARITY CLEAR; URINE COLOR YELLOW; URINE GLUCOSE-RANDOM* NEGATIVE (Negative); URINE KETONES NEGATIVE (Negative); URINE LEUKOCYTES-REFLEX NEGATIVE (Negative); URINE NITRITE-REFLEX NEGATIVE (Negative); URINE PROTEIN (DIPSTICK) 1+ (Negative); URINE UROBILINOGEN 0.2 E.U./dl (0.2-1.0)
[2021-01-22 18:08] LABS: SQUAMOUS 4-10 Moderate /LPF (0-3)
[2021-01-22 18:09] LABS: BACTERIA-REFLEX 1-9 Few /HPF (None Seen); CRYSTALS None Seen /LPF (None Seen); HYALINE CASTS 0-3 Few /LPF (None Seen); URINE RBC 1-2 Rare /HPF (NONE SEEN); URINE WBC-REFLEX 0-5 Rare /HPF (0-5)
[2021-01-22 18:35] VITALS: BP 122/85
--- NOTE | 2021-01-22 20:21 | NUR ---
THIS NURSE TRANSPORTED PATIENT TO INPATIENT FLOOR. PATIENT TRANSPORTED TO INPATIENT BED WITH ADRIENNE ALMANZA. ALICIA JUAREZ NOTIFIED PATIENT WAS IN BED SAFELY AND TECH WAS PRESENT IN ROOM AT THE TIME I LEFT THE UNIT.
[2021-01-22 20:39] VITALS: BP 178/100
[2021-01-23] VITALS (10 sets, daily range): BP systolic 114–179; BP diastolic 70–107
--- NOTE | 2021-01-23 04:44 | NUR ---
NEW ADMIT FOR LEFT HIP PAIN. NEW ORDER FOR IR TO ASPIRATE FLUID. PATIENT HAS BEEN NPO SINCE MIDNIGHT. PATIENT BLOOD PRESSURE AND PULSE HAS BEEN HIGH ELECTRICAL PROSPECTING ENGINEER CALLED NEW ORDER GIVEN AND MEDS GIVEN. VS WNL AT THIS TIME. PATIENT IS TACHY ON THE MONITOR WITH ACTIVIES. PATIENT HAS ILESTOMY CHANGED X2 STOMA IS PINK IN COLOR AND MOIST. FALL PRECAUTION IN PLACE.PATIENT NEEDS MINIMUM ASSISTANCE WITH ADL, BED MOBILITY, TRANSFER AND TOILETING. PATIENT IN BED ASLEEP AT THIS TIME BREATHING REGULAR AND UNLABOURED.
[2021-01-23 05:55] LABS: ABSOLUTE NEUTROPHILS 10.7 thou/uL (1.4-8.2); BASOPHILS 0.4 % (0.0-2.0); EOSINOPHILS 0.1 % (0.0-3.0); HEMATOCRIT 34.9 % (37.0-47.0); LYMPHOCYTES 9.8 % (24.0-44.0); MCH 29.7 pg (26.0-34.0); MCV 92.9 fL (80.0-100.0); MONOCYTES 5.8 % (1.0-8.0); POLYS 83.9 % (36.0-66.0); RBC 3.76 mil/uL (4.20-5.00); RDW 17.3 % (10.5-14.5); WBC 12.8 thou/uL (4.0-11.0)
[2021-01-23 06:02] LABS: CALCIUM 8.8 mg/dL (8.5-10.1); CREATININE 0.8 mg/dL (0.6-1.0); HEMOGLOBIN 11.2 gm/dL (12.0-15.0); MAGNESIUM 1.8 mg/dL (1.8-2.4); PLATELET COUNT 391 thou/uL (150-400); POTASSIUM 4.3 mmol/L (3.5-5.1)
--- NOTE | 2021-01-23 08:14 | EKG ---
[address] [address] ELECTROCARDIOGRAM REPORT Name: SUNNI CERDA Room #: 461-P ADM IN M.R.#: [id number] Admission: 01/22/21 Attend Phys: Ernesto Guadalupe MD Discharge: Date of : 50 Report #: [id number] [facility] Test Date: 2021-01-23 Test Time: 07:20:20 Pat Name: SUNNI CERDA Department: Room: 461 P Gender: F Caramel Cutter Helper: ABHIJIT : 1950 Requested By: Tammi Quiroz Order Number: [id number] MD: John Vergara Measurements Intervals [place] Rate: 121 P: 41 [place]: 147 QRS: -14 QRSD: 77 T: 69 QT: 329 QTc: 467 Interpretive Statements Sinus tachycardia Compared to ECG 01/22/2021 15:39:42 Atrial premature complex(es) now present Sinus rhythm no longer present Electronically Signed On 01-23-2021 8:13:59 CDT by John Vergara [email or web address] <ELECTRONICALLY SIGNED> By: John Vergara MD 01/23/21812 9 9 John Vergara MD /ARGELIA
--- NOTE | 2021-01-23 09:22 | NUR ---
ASSESSMENT: CM REVIEWED CHART AND MET WITH PATIENT. PT WAS ADMITTED DUE TO HIP PAIN. PT HAS POSSIBLE HEMATOMA ON LEFT HIP OR POSTOP SEROMA. PT WAS GIVEN DOSE OF IV ANBX AND AWAITING INPUT FROM ORTHOSURGERY. PT HAS HAD MULTIPLE ADMISSIONS TO [facility] AND CM DEPARTMENT FAMILIAR WITH PATIENT. PT LIVES IN A HOUSE WITH HER SISTER AND HER SON. PT REPORTS ABOUT 3-4 STEPS TO ENTER THE HOME WITH HANDRAILS. PT REPORTS SHE DOES NOT HAVE ANY FURTHER STEPS ONCE INSIDE. PT IS CURRENTLY IN SERVICES WITH [facility]. CM NOTIFIED GAYLA AT [facility] AND SENT UPDATED CLINICAL AND NOTIFIED HER SHE IS STILL A PART OF THE BUNDLE PROGRAM. PT REPORTS SHE HAS BEEN TO 5N ACUTE REHAB IN THE PAST. PT DENIES BEING TO A SNF. CM DISCUSSED ONCE THERAPY AND CONSULTS SEE PATIENT SHE MAY NEED POST ACUTE CARE. CM DISCUSSED PT IS STILL A PART OF THE BUNDLE PROGRAM AND BROVIDED [facility] SNF LIST/HH LIST. PT THEN SHUT HER EYES AND DID NOT WANT TO DISCUSS. CM WILL CONTINUE TO FOLLOW TO ASSIST NEEDED AND AWAITING FURTHER RECOMMENDATIONS.
--- NOTE | 2021-01-23 20:45 | NUR ---
Assumed pt care this am, recieved NPO aspiration will be done tomorrow. Seen by speech, placed on pureed diet with nectar thick liquids. Pain is managed with medications, partial relief is noted. Pt is sinus tach, raised this concern to the MD. NPO midnight on wards, endorsed to the night nurse.
--- NOTE | 2021-01-24 04:43 | NUR ---
PT C/O PAIN X2 THRU NOC GIVEN PRN EFFECTIVE CURRENTLY IN BED ASLEEP EYES CLOSED. UP WITH ASSIST BED ESPINOSA X 3 . NO CURRENT ISSUES NOTED .
[2021-01-24 05:00] VITALS: BP 144/94
[2021-01-24 07:45] VITALS: BP 143/92
--- NOTE | 2021-01-24 08:21 | NUR ---
OSTOMY CARE; AWAKE, ALERT, VERY PLEASANT, POUCH EDGES LOOSE, CHANGED USING 2PIECE SYSTEM CUT TO FIT ANJU, STOMA PINK VIABLE BUDDED W/ LOOSE BROWN STOOL NOTED, PERISTOMAL SKIN INTACT, ADAPT RING APPLIED UNDER WAFER, SUPPLIES PLACED AT BS RECOMMENDATIONS; CHANGE POUCH Q 3-5 DAYS AND PRN, EMPTY PRN EXPERIMENTAL PLASTICS FABRICATOR AWARE
[2021-01-24 09:26] LABS: ABSOLUTE NEUTROPHILS 4.1 thou/uL (1.4-8.2); BASOPHILS 0.6 % (0.0-2.0); EOSINOPHILS 1.2 % (0.0-3.0); HEMATOCRIT 31.8 % (37.0-47.0); HEMOGLOBIN 10.4 gm/dL (12.0-15.0); LYMPHOCYTES 27.2 % (24.0-44.0); MCH 30.2 pg (26.0-34.0); MCHC 32.7 g/dL (28.0-37.0); MCV 92.3 fL (80.0-100.0); PLATELET COUNT 349 thou/uL (150-400); RBC 3.44 mil/uL (4.20-5.00); RDW 17.2 % (10.5-14.5); WBC 6.6 thou/uL (4.0-11.0)
[2021-01-24 09:41] LABS: CALCIUM 9.3 mg/dL (8.5-10.1); CREATININE 0.6 mg/dL (0.6-1.0); MAGNESIUM 1.7 mg/dL (1.8-2.4)
[2021-01-24 09:54] LABS: POTASSIUM 4.2 mmol/L (3.5-5.1)
--- NOTE | 2021-01-24 10:41 | NUR ---
ST ATTEMPTED COGNITIVE-LINGUISTIC EVALUATION. PATIENT REFUSED STATING, "I WANT TO GO HOME AND REST. I DON'T WANT ANY THERAPIES. I'VE BEEN DISABLED FOR YEARS. I'VE ALREADY BEEN THROUGH THESE THERAPIES BEFORE." PATIENT WANTED TO KNOW WHEN SHE COULD GO HOME. HIGHBALLER ADVISED EVALUATION WAS A PART OF DECIDING WHEN SHE COULD GO HOME, BUT SHE CONTINUED TO DECLINE. PATIENT STATED SHE HADN'T TALKED TO CM, DESPITE HIGHBALLER READING IN CHART THAT CM HAD SPOKEN WITH HER YESTERDAY. PATIENT IS WELL-KNOWN TO THE SPEECH THERAPY DEPARTMENT AND HAS SIGNIFICANT MEMORY IMPAIRMENTS. BASED ON CONVERSATIONAL TASKS AND OVERALL MEMORY IMPAIRMENTS, PATIENT APPEARS TO BE AT OR NEAR THE LEVEL OF COGNITIVE IMPAIRMENT BASELINE.
--- NOTE | 2021-01-24 16:05 | NUR ---
PT HAD HIP ASPIRATED THIS DAY. AWAITING CULTURES. ORTHO INDICATED THEY DON'T ANTICIAPTE DC OVER THE WEEKEND. HOSPITALIST INDICATED THAT THEY WOULD ASSESS DC DAY BY DAY. PT INIDCATED NO BEING RECEPTIVE TO SKILLED OR ACUTE REHAB STAYS AND INDICATES DESIRE TO RETURN HOME WITH RESUMPTION OF [facility]. SHOULD PT BE MEDICALLY STABLE TO DC HOME OVER THE WEEKEND AND STILL REFUSING PLACMENT CONTACT [facility] AT FAX ORDERS TO .
[2021-01-24 16:17] VITALS: BP 121/77
--- NOTE | 2021-01-24 19:32 | NUR ---
Assumed pt care this am, received NPO had her left hip aspiration. Pain is managed with medications. Colostomy bag draining yellow brown stool liquid. Is able to use the bedside commode. Was requesting to leave, explained the wait for the diagnostics from the aspirationsand mentioned that Dr. Terrell will come and see her on Wednesday as advised. Diet and medications are tolerated well. POC followed with no signs of distress noted. Enldorsed to the night nurse.
[2021-01-24 20:11] VITALS: BP 126/78
--- NOTE | 2021-01-25 04:27 | NUR ---
pt was placed a new iv. right forearm.patent infusing medication without difficulties. tolerated well. c/o pain x2 thru noc up to bsc x1.currently in bed with eyes closed on discomfort noted will continue to monitor.
[2021-01-25 05:35] VITALS: BP 153/96
[2021-01-25 07:59] VITALS: BP 157/98
[2021-01-25 16:04] VITALS: BP 131/74
--- NOTE | 2021-01-25 17:47 | NUR ---
ASSUMED CARE OF PATIENT AT SHIFT CHANGE. ASSESSMENT CHARTED. MEDICATIONS ADMINISTERED PER EMAR. VSS. PATIENT IS A&OX4 AND ABLE TO MAKE NEEDS KNOWN. PATIENT WAS AGITATED THIS MORNING BECAUSE A PHYSICIAN TOLD PATIENT SHE WAS OK TO DISCHARGE THIS DAY. PATIENTS CULTURE RESULTS ARE STILL PENDING; MD INDICATED PATIENT MAY LEAVE AFTER RESULTS ARE CLEAR. IV FLUIDS AND ABX INFUSING ON L FA W NO ISSUES. VOICES PAIN PARTIALLY RELIEVED BY PRN PAIN ANALGESIC. UP X1 TO BSC; SEEMING FORGETFUL ABOUT FALL PRECAUTIONS. PATIENT IS OTHERWISE MEDICALLY STABLE. WILL BE CONTINUING FREQUENT MONITORING ON PATIENT.
[2021-01-25 19:20] VITALS: BP 135/91
[2021-01-26 02:05] VITALS: BP 144/97
--- NOTE | 2021-01-26 06:25 | NUR ---
Pt. rested quietly at intervals during the night when checked on during frequent rounds. She has been up to the bedside comode with assistance of one frequently. Po pain med given for generalzed pain (see emar) with some relief noted. Bed alarm is on.
[2021-01-26 07:49] VITALS: BP 148/99
--- NOTE | 2021-01-26 12:51 | NUR ---
ASSUMED PT CARE AROUND 0700. PT ALERT X ORIENTED X 4. ON ROOM AIR. ONE PERSON ASSIST. IV RT FOREARM/NS RUNNING AT 50MLS/HR.ILEOSTOMY BAG CHANGED TODAY.STOMA LOOKS GOOD. DIET CHANGED TO REGULAR PER DR. YANEZ'S ORDER. BRUISING ON THE UPPERLIMBS.ON TELE MONITORING. FALL PRECAUTION IN PLACE. WILL CONTINUE TO MONITOR.
[2021-01-26] MEDS ORDERED: AUGMENTIN 875-1 EACH PO (13:11)
[2021-01-26 13:20] VITALS: BP 148/99
--- NOTE | 2021-01-27 17:06 | PATH ---
[facility] [address] [place] [address] PATHOLOGY RPT PROCEDURE Name: SUNNI CERDA Room #: 461-P DIS IN M.R.#: [id number] Admission: 01/22/21 Date of : 50 Discharge: 01/26/21 Report #: [id number] Path Case #: [id number] Note [facility] Accession Number: [id number] TESTS RESULT FLAG UNITS REF RANGE LAB Clinician Provided Cytology Information No. of containers..01 Other (Miscellaneous) Source: LEFT HIP ASPIRATE DIAGNOSIS: 02 LEFT HIP ASPIRATE NEGATIVE FOR MALIGNANT EPITHELIAL CELLS. THIS INTERPRETATION INCLUDES EVALUATION OF A CELL BLOCK. MARKED ACUTE INFLAMMATION PRESENT, FINDINGS COMPATIBLE WITH ABSCESS . Pathologist ICD10: 02 M71.059 Signed out by: 02 Lolly Solo MD, Pathologist NPI- [id number] Performed by: Magali Cortez, Revenue Analyst ([facility]) Gross description: 01 2.5ML, BLOODY RED, 1 TP 1 CB /LCS 01/24/2021 1516 Local FLAG LEGEND: L-Low Normal,H-High Normal,LL-Alert Low,HH-Alert High <-Panic Low,>-Panic High,A-Abnormal,AA-Critical Abnormal Performed at: [address] [place] [address] Luis Majano MD, [address] [address] Lolly Solo MD, Specimen Comment: A courtesy copy of this report has been sent to [phone] Specimen Comment: Report sent to Performed at: [address], [place], [place] [id number] MD Luis Majano MD Phone: [phone]
== END 2021-01-26 14:00 | disposition home or self-care (01) | DRG 919 ==
LOC: ER 15:12 → EROBS 18:07 → 4W 18:07
PROVIDERS: Physician Assistant; ADMIT Internal Medicine; ATTEND Internal Medicine
PROC: 0Y9 Anatomical Regions, Lower Extremities, Drainage (ICD-10-PCS; principal; 2021-01-24)
DX: M96.842 Postprocedural seroma of a musculoskeletal structure following a musculoskeletal system procedure (principal); E43 Unspecified severe protein-calorie malnutrition; Z68.1 Body mass index [BMI] 19.9 or less, adult; K21.9 Gastro-esophageal reflux disease without esophagitis; I10 Essential (primary) hypertension; F32.9 Major depressive disorder, single episode, unspecified; F41.9 Anxiety disorder, unspecified; F17.200 Nicotine dependence, unspecified, uncomplicated; G89.4 Chronic pain syndrome; M32.9 Systemic lupus erythematosus, unspecified; M06.9 Rheumatoid arthritis, unspecified; M19.90 Unspecified osteoarthritis, unspecified site; Y83.8 Other surgical procedures as the cause of abnormal reaction of the patient, or of later complication, without mention of misadventure at the time of the procedure; Y79.8 Miscellaneous orthopedic devices associated with adverse incidents, not elsewhere classified; Y92.89 Other specified places as the place of occurrence of the external cause; Z98.49 Cataract extraction status, unspecified eye; Z90.710 Acquired absence of both cervix and uterus; Z90.49 Acquired absence of other specified parts of digestive tract; Z79.899 Other long term (current) drug therapy
CPT/HCPCS: 10045

== ENCOUNTER 2021-02-03 23:12 | Emergency (ER) | payer OTHER ==
[~2021-02-03] VITALS: Ht 157.5 cm; Wt 34.0 kg
[2021-02-03 23:41] LABS: ABSOLUTE NEUTROPHILS 11.1 thou/uL (1.4-8.2); BASOPHILS 0.3 % (0.0-2.0); EOSINOPHILS 2.1 % (0.0-3.0); HEMATOCRIT 38.6 % (37.0-47.0); HEMOGLOBIN 12.4 gm/dL (12.0-15.0); LYMPHOCYTES 18.1 % (24.0-44.0); MCH 30.7 pg (26.0-34.0); MCV 95.9 fL (80.0-100.0); MONOCYTES 6.3 % (1.0-8.0); PLATELET COUNT 424 thou/uL (150-400); POLYS 73.2 % (36.0-66.0); RBC 4.03 mil/uL (4.20-5.00); WBC 15.2 thou/uL (4.0-11.0)
[2021-02-04] LABS: ALBUMIN 2.7 g/dL (3.4-5.0); ANION GAP 18 mmol/L (7-16); BUN 24 mg/dL (7-18); CALCIUM 7.4 mg/dL (8.5-10.1); CHLORIDE 112 mmol/L (98-107); CREATININE 1.1 mg/dL (0.6-1.0); GLUCOSE 107 mg/dL (74-106); LIPASE 408 U/L (73-393); SGOT 24 U/L (15-37); SGPT 16 U/L (30-65); SODIUM 140 mmol/L (136-145); TOTAL BILIRUBIN 0.2 mg/dL (0.2-1.0); TOTAL PROTEIN 5.6 g/dL (6.4-8.2); TROPONIN-I <0.06 ng/mL (<0.06)
[2021-02-04 00:01] LABS: POTASSIUM 3.8 mmol/L (3.5-5.1)
[2021-02-04 00:02] LABS: BE(vivo) -16.8 mmol/L (-2 to +3); HCO3 9.6 mmol/L (22.0-26.0); PO2 372.3 mmHg (80.0-100.0); sO2 99.7 % (92.0-98.0)
[2021-02-04 00:03] LABS: CO2 10 mmol/L (21-32)
[2021-02-04 00:03] LABS: PCO2 24.9 mmHg (35.0-45.0); pH 7.202 (7.360-7.450)
[2021-02-04 00:51] LABS: URINE BILIRUBIN NEGATIVE (Negative); URINE BLOOD TRACE (Negative); URINE CLARITY CLEAR; URINE COLOR YELLOW; URINE GLUCOSE-RANDOM* NEGATIVE (Negative); URINE KETONES NEGATIVE (Negative); URINE LEUKOCYTES-REFLEX NEGATIVE (Negative); URINE NITRITE-REFLEX NEGATIVE (Negative); URINE PROTEIN (DIPSTICK) 1+ (Negative); URINE SPECIFIC GRAVITY 1.015 (1.005-1.035); URINE UROBILINOGEN 0.2 E.U./dl (0.2-1.0)
[2021-02-04 01:15] LABS: FINE GRANULAR CASTS 0-3 Few /LPF (None Seen); HYALINE CASTS 0-3 Few /LPF (None Seen); MUCUS 0-3 Light strn/LPF (None Seen); SQUAMOUS 0-3 Few /LPF (0-3); URINE RBC None Seen /HPF (NONE SEEN); URINE WBC-REFLEX None Seen /HPF (0-5)
[2021-02-04 01:16] LABS: BACTERIA-REFLEX None Seen /HPF (None Seen); CRYSTALS None Seen /LPF (None Seen)
[2021-02-04 01:21] LABS: APTT 25.3 Seconds (24.5-32.8); INR 1.02; PROTIME 11.1 Seconds (10.5-12.1)
[2021-02-04 02:54] VITALS: BP 119/98
--- NOTE | 2021-02-04 07:15 | EKG ---
[place] [address] [facility] [place] [employer] [place] [address] ELECTROCARDIOGRAM REPORT Name: SUNNI CERDA LIZZETTE Room #: DEP [facility]#: [id number] Admission: 02/03/21 Attend Phys: Discharge: 02/04/21 Date of : 50 Report #: [id number] [facility] ED Test Date: 2021-02-03 Test Time: 23:44:22 Pat Name: SUNNI CERDA Department: Room: Gender: F Condenser Winder: : 1950 Requested By: Neto Groves Order Number: [id number] MD: Hayden Ballard Measurements Intervals [place] Rate: 87 P: 44 DC: 162 QRS: -1 QRSD: 85 T: 62 QT: 408 QTc: 491 Interpretive Statements Sinus rhythm Minimal ST elevation, inferior leads Borderline prolonged QT interval Baseline wander in lead(s) V2 Compared to ECG 01/23/2021 07:20:20 ST (T wave) deviation now present Sinus tachycardia no longer present Electronically Signed On 02-04-2021 7:15:07 CDT by Hayden Ballard [email or web address] <ELECTRONICALLY SIGNED> By: Hayden Ballard MD, [facility] 02/04/21 0715 [id number] Hayden Ballard MD, [facility] /EPI
== END 2021-02-04 03:00 | disposition short-term general hospital (02) ==
LOC: ER 23:12
PROVIDERS: Emergency Medicine
DX: A41.9 Sepsis, unspecified organism (principal); Z20.822 Contact with and (suspected) exposure to COVID-19; R65.21 Severe sepsis with septic shock; I77.79 Dissection of other specified artery; K55.8 Other vascular disorders of intestine; K21.9 Gastro-esophageal reflux disease without esophagitis; M79.7 Fibromyalgia; I10 Essential (primary) hypertension; F17.210 Nicotine dependence, cigarettes, uncomplicated; Z79.899 Other long term (current) drug therapy

== ENCOUNTER 2021-02-23 12:51 | Inpatient (IN) | payer OTHER ==
[~2021-02-23] VITALS: Ht 157.5 cm; Wt 40.8 kg
[2021-02-23 12:51] VITALS: BP 130/83
[2021-02-23 13:42] LABS: ANION GAP 17 mmol/L (7-16); BUN 33 mg/dL (7-18); CALCIUM 9.9 mg/dL (8.5-10.1); CHLORIDE 99 mmol/L (98-107); CO2 18 mmol/L (21-32); CREATININE 1.4 mg/dL (0.6-1.0); GLUCOSE 100 mg/dL (74-106); POTASSIUM 4.9 mmol/L (3.5-5.1); SODIUM 134 mmol/L (136-145)
--- NOTE | 2021-02-23 13:44 | NUR ---
PT STOMA IS VERY RED IN NATURE WITH LARGE AMOUNT OF REDNESS SURROUNDING. PT STATES STOOL OVER THE PAST FEW DAYS HAS FELT LIKE IT'S BURNING HER SKIN. PT NOTES BEING OUT OF OSTOMY BAGS THE PAST X2 DAYS. PT SISTER IS THE ONE WHO DOES HER OSTOMY CARE.
[2021-02-23 13:49] LABS: HEMATOCRIT 43.4 % (37.0-47.0); HEMOGLOBIN 14.1 gm/dL (12.0-15.0); MCH 30.6 pg (26.0-34.0); MCHC 32.6 g/dL (28.0-37.0); MCV 93.9 fL (80.0-100.0); PLATELET COUNT 509 thou/uL (150-400); RBC 4.62 mil/uL (4.20-5.00); RDW 16.9 % (10.5-14.5); WBC 13.8 thou/uL (4.0-11.0)
[2021-02-23 13:52] LABS: LIPASE 146 U/L (73-393); SGOT 23 U/L (15-37); SGPT 21 U/L (30-65); TOTAL BILIRUBIN 0.3 mg/dL (0.2-1.0); TOTAL PROTEIN 8.2 g/dL (6.4-8.2); TROPONIN-I <0.06 ng/mL (<0.06)
[2021-02-23 14:22] LABS: ABSOLUTE NEUTROPHILS 11.6 thou/uL (1.4-8.2); PLATELET ESTIMATE NORMAL
[2021-02-23 15:09] LABS: INR 0.9; PROTIME 9.8 Seconds (9.3-11.4)
[2021-02-23 15:35] VITALS: BP 112/67
[2021-02-23 17:22] VITALS: BP 129/71
--- NOTE | 2021-02-23 18:22 | NUR ---
assumed care of pt on arrival to unit at approx 1700. pt alert and oriented no acute distress. complains of pain to stoma. significant inflammation to stoma. applied pouch to stoma. paged surgery for follow up instructions. NS and abx infusing per order. calls appropriately. ST on telemetry.
[2021-02-23 19:51] VITALS: BP 126/67
[2021-02-24] VITALS (7 sets, daily range): BP systolic 116–145; BP diastolic 61–97
--- NOTE | 2021-02-24 04:21 | NUR ---
Patient making slow progress towards outcome goals. Afebrile, tachycardic HR 120-130. BP stable. IVFluids and antibiotics started. Skin around ostomy site red. Good pain control with Hydrocodone. Gait steady up to [facility] independently.
[2021-02-24 04:40] LABS: HEMATOCRIT 32.4 % (37.0-47.0); MCH 30.9 pg (26.0-34.0); MCV 93.7 fL (80.0-100.0); RBC 3.46 mil/uL (4.20-5.00); RDW 16.5 % (10.5-14.5); WBC 8.8 thou/uL (4.0-11.0)
[2021-02-24 04:43] LABS: HEMOGLOBIN 10.7 gm/dL (12.0-15.0)
[2021-02-24 04:56] LABS: CREATININE 0.8 mg/dL (0.6-1.0)
[2021-02-24 05:11] LABS: CALCIUM 7.9 mg/dL (8.5-10.1); POTASSIUM 3.8 mmol/L (3.5-5.1)
--- NOTE | 2021-02-24 07:08 | EKG ---
[address] [place] [address] ELECTROCARDIOGRAM REPORT Name: SUNNI CERDA LIZZETTE Room #: 363-P ADM IN M.R.#: [id number] Admission: 02/23/21 Attend Phys: Quincy Swann MD Discharge: Date of : 50 Report #: [id number] [facility] ED Test Date: 2021-02-23 Test Time: 13:09:13 Pat Name: SUNNI CERDA Department: Room: 363 Gender: F Laboratory Tester: KISHA : 1950 Requested By: Rosi Meade Order Number: [id number] MD: Hayden Ballard Measurements Intervals [place] Rate: 122 P: 78 IN: 129 QRS: -22 QRSD: 73 T: 63 QT: 308 QTc: 439 Interpretive Statements Sinus tachycardia Probable left atrial enlargement Probable left ventricular hypertrophy Minimal ST elevation, lateral leads Compared to ECG 02/03/2021 23:44:22 Sinus rhythm no longer present ST (T wave) deviation still present Electronically Signed On 02-24-2021 7:08:38 CDT by Hayden Ballard [email or web address] <ELECTRONICALLY SIGNED> By: Hayden Ballard MD, FAC 02/24/21 0708 [id number] Hayden Ballard MD, [facility] /EPI
--- NOTE | 2021-02-24 09:39 | NUR ---
OSTOMY CARE; PT KNOWN TO THIS [facility] NURSE FROM PREVIOUS ADMISSIONS, STATES SHE HAD HOME HEALTH SEEING HER BUT WAS DC FROM HOME HEALTH AND THEN RAN OUT OF OSTOMY SUPPLIES, STATES SISTER IS A RETIRED RN AND WERE HAVING TROUBLE GETTING SUPPLIES ORDERED. GIVEN PT A LIST AGAIN OF OSTOMY PROVIDERS AND HOW TO PLACE AN ORDER, PERISTOMAL SKIN EXCORIATION PRESENT ~ 3CM MOSTLY AT BASE OF STOMA. STOMA RED VIABLE SLIGHTLY BUDDED, SCANT BLEEDING NOTED, MARATHON PREP APPLIED AND CONVEX 1 8' POUCH W/ ADAPT RING UNDER WAFER, FAIR UNDERSTANDING OF TX, WILL CALL SISTER TO REVIEW ALSO. RECOMMEND AT [facility] AGAIN W/ OSTOMY NURSE SEEING PT, STOOL LOOSE TO LIQ, GIVEN GUIDELINE ON FOODS TO THICKEN STOOL, WILL ALSO ORDER SUPPLIES THRU [facility] TO BE SENT TO HOME,PHOTO TAKEN OF EXCORIATION AND PLACED ON CHART RECOMMENDATIONS; MARATHON PREP TO EXCORIATION UNTIL HEALED, CHANGE POUCH Q3-4 DAYS AND PRN, EMPTY PRN, CONVEX ANJU APPLIANCES, WAFER #[id number], POUCH # [id number], ADAPT RING #[id number] GRANT WRITER AWARE GRANT WRITER AWARE
--- NOTE | 2021-02-24 14:12 | NUR ---
Pt unclear if she has "celiac sprue". 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 Needs clarification, and recommend start/encourage gluten free diet if celiac sprue.
--- NOTE | 2021-02-24 14:54 | NUR ---
INITIAL ASSESSMENT: MARIAH reviewed chart and spoke with nursing and attending physician. Pt was admitted from home due to abdominal pain/dehydration. Pt with hx of ileostomy placement last month. Pt was discharged home from [facility] on 01/26 with [facility]. Pt has been on 5N in December of this year. Pt is on IV abx. MARIAH discussed case with ostomy nurse, who has spoken with both pt and pt's sister regarding ordering ostomy supplies. Pt had run out of ostomy supplies prior to admission. Pt and her sister have been provided with info regarding ostomy supplies. Pt's sister has been in contact with [employer] to order ostomy supplies. perianesthesia manager's contact info provided to pt and family. MARIAH met with pt at bedside. Introduced role of MARIAH. Pt is alert/orientated and states she lives at home with her sister and family. Prior to admission, pt was using a walker to assist with ambulation. Pt states there are a couple steps to get into the house and she is able to get up the stair using the hand rails. HH services have ended. Pt requests to have HH restarted at time of discharge. Pt would like to use [facility] again. MARIAH confirmed pt's home address and phone number. Pt's PCP is Dr. José Wray in [place]. MARIAH faxed HH referral to [facility] and notified liaison of new referral. Discharge home with HH is anticipated in 1-2 days. MARIAH is following to assist as needed with discharge planning.
[2021-02-25 03:18] VITALS: BP 169/90
[2021-02-25 05:36] LABS: HEMATOCRIT 30.1 % (37.0-47.0); MCHC 33.3 g/dL (28.0-37.0); MCV 93.2 fL (80.0-100.0); RBC 3.23 mil/uL (4.20-5.00); RDW 16.3 % (10.5-14.5); WBC 6.2 thou/uL (4.0-11.0)
[2021-02-25 05:46] LABS: CALCIUM 8.1 mg/dL (8.5-10.1); CREATININE 0.5 mg/dL (0.6-1.0); POTASSIUM 3.6 mmol/L (3.5-5.1)
--- NOTE | 2021-02-25 07:05 | NUR ---
Pt. slept intermittently during the night in between getting up to the commode to void. Medicated for generalized pain with some relief. Tolerating room air well and denies being short of breath. She has been afebrile. Making some progress towards care plan goals.
[2021-02-25 07:36] VITALS: BP 146/99
[2021-02-25] MEDS ORDERED: AUGMENTIN 875-1 EACH PO (08:43)
[2021-02-25 10:31] VITALS: BP 146/99
[2021-02-25 10:35] VITALS: BP 146/99
[2021-02-25 10:40] VITALS: BP 146/99
--- NOTE | 2021-02-25 13:09 | NUR ---
DISCHARGE NOTE: SW reviewed chart and spoke with nursing and attending physician. Pt is medically stable for discharge home today with services. [facility] is unable to accept pt back on service due to hx of non-compliance. SW met with pt at bedside to provide update and discussed need for alternate HH agency. Pt verbalized understanding. Options provided. No preference voiced. Pt states that her family will provide transportation home later today. MARIAH notified [facility] liaison of new referral. [facility] is able to accept pt on service. Start of care is planned for tomorrow. HH liaison met with pt, spoke with pt's sister and faxed discharge ppwk to the HH office. Contact info for HH placed in pt's discharge summary. No additional SW needs identified at this time, but is available to assist should needs arise.
--- NOTE | 2021-02-25 15:00 | NUR ---
PT DISCHARGED TO HOME WITH SON/SISTER...SHE WILL HAVE IVAN TO MANAGE OSTOMY CARE/SUPPLIES...
== END 2021-02-25 15:02 | disposition home health service (06) | DRG 871 ==
LOC: ER 12:51 → EROBS 15:05 → 3W 15:05
PROVIDERS: Physician Assistant; ADMIT Hospitalist; ATTEND Hospitalist
DX: A41.9 Sepsis, unspecified organism (principal); E43 Unspecified severe protein-calorie malnutrition; N17.9 Acute kidney failure, unspecified; L03.311 Cellulitis of abdominal wall; Z68.1 Body mass index [BMI] 19.9 or less, adult; K94.09 Other complications of colostomy; K21.9 Gastro-esophageal reflux disease without esophagitis; I10 Essential (primary) hypertension; F32.9 Major depressive disorder, single episode, unspecified; F41.9 Anxiety disorder, unspecified; R65.20 Severe sepsis without septic shock; L30.8 Other specified dermatitis; R10.9 Unspecified abdominal pain; M06.9 Rheumatoid arthritis, unspecified; G89.4 Chronic pain syndrome; F17.210 Nicotine dependence, cigarettes, uncomplicated; R53.81 Other malaise; K31.89 Other diseases of stomach and duodenum; Z87.81 Personal history of (healed) traumatic fracture; Z98.49 Cataract extraction status, unspecified eye; Z90.710 Acquired absence of both cervix and uterus; Z79.899 Other long term (current) drug therapy; Z79.891 Long term (current) use of opiate analgesic; Y83.8 Other surgical procedures as the cause of abnormal reaction of the patient, or of later complication, without mention of misadventure at the time of the procedure; Y82.8 Other medical devices associated with adverse incidents
CPT/HCPCS: 10879

== ENCOUNTER → 2021-04-09 | Outpatient (CLI) | payer OTHER | LOC: SJCVC 14:06 | PROVIDERS: ATTEND Nuclear Medicine Nuclear Cardiology | DX: K55.1 Chronic vascular disorders of intestine (principal); I70.1 Atherosclerosis of renal artery; I10 Essential (primary) hypertension; F17.210 Nicotine dependence, cigarettes, uncomplicated; Z79.899 Other long term (current) drug therapy ==